=== PATIENT | female | born 1945 | race Caucasian/White ===

== ENCOUNTER → 2023-08-15 11:15 | Outpatient (REF) | payer MEDICARE, SELFPAY | LOC: HWRAD 11:15 | PROVIDERS: ATTENDING PHYSICIAN Nurse Practitioner; FAMILY PHYSICIAN Family Medicine | DX: I48.0 Paroxysmal atrial fibrillation (principal); I71.21 Aneurysm of the ascending aorta, without rupture | CPT/HCPCS: 71250 ==

== ENCOUNTER 2023-08-29 15:39 | Inpatient (IN) | payer MEDICARE, SELFPAY ==
[2023-08-29] VITALS (13 sets, daily range): BP systolic 106–136; BP diastolic 56–92; BMI 31.0; BMI 32.1
[2023-08-29] MEDS: DECADRON 10 MG IV (11:29)
[2023-08-29] MEDS: DUONEB 3 ML INH ×4 (11:29→19:26)
[2023-08-29 11:32] LABS: % Basophils 0.1 % (0-2); % Immature Granulocytes 0.4 % (0-0.5); % Lymphocytes 9.6 % (20.5-51.1); % Monocytes 6.7 % (1.7-9.3); % Neutrophils 83.2 % (42.2-75.2); Absolute Lymphocytes 0.7 10^3/uL (1.2-3.4); Absolute Monocytes 0.5 10^3/uL (0.1-0.6); Absolute Neutrophils 6.4 10^3/uL (1.4-6.5); Hemoglobin 14.6 g/dL (12.0-16.0); Mean Corpuscular Hgb 31.2 pg (27.0-31.0); Mean Corpuscular Volume 91.9 fL (81.0-99.0); Mean Platelet Volume 9.7 fL (7.4-10.4); Nucleated Red Blood Cells % 0 %; Platelet Count 153 10^3/uL (130-400); Red Blood Cell Count 4.68 10^6/uL (4.20-5.40); Red Cell Dist. Width 13.5 % (11.5-14.5); White Blood Cell Count 7.7 10^3/uL (4.8-10.8)
--- NOTE | 2023-08-29 11:44 | ED.GENMED ---
History of Present Illness
General
Chief Complaint: Chest Pain
Source: patient
Exam Limitations: none
Time Seen by Provider: 08/29/23 11:23
Nursing documentation reviewed up to this point in time: agreed with
Travel History
Have you had any contact with someone who has COVID-19?: No
Do you have any symptoms of coronavirus? Fever > 100 degrees, chills, cough, shortness of breath, sore throat, loss of taste or smell, muscle aches, or headache?: No
History of Present Illness
History of Present Illness:
78-year-old female past medical history of COPD A-fib hyperlipidemia currently anticoagulated with Eliquis presenting to the emergency department today with concerns of worsening shortness of breath. Upper respiratory symptoms over the past 3 days
or so worsening shortness of breath today. Seen in her primary care doctor was told that her pulse ox is in the 70s told to come to the ER. Denies specific chest pain denies specific fevers vomiting abdominal pain.
Review of Systems
Review of Systems
Allergies reviewed?: Yes
All Other Systems: ROS reviewed and negative except as documented in HPI and ROS
Phy Exam
Physical Exam
Physical Exam:
GENERAL: Alert , in no apparent distress
EYE: pupils equal and reactive
NECK: Supple, no significant adenopathy.
ENT: o/p clr, mmm.
CARDIAC: Regular rate and rhythm .
LUNGS: Diminished lungs faint wheeze with forced exhalation.
ABDOMEN: Soft, without focal tenderness, no r/g, no cvat
NEUROLOGICAL: Alert and oriented, no focal neuro deficits
SKIN: Warm and dry, skin intact.
MUSCULOSKELETAL: No edema, well perfused.
PSYCH: Normal and appropriate interaction.
Scores
Heart Score for Chest Pain Patients
STEMI patient?: No
History: Slightly or Non-Suspicious
ECG: Normal
Age: >/= 65 years
Risk Factors: 1 or 2 Risk Factors
Troponin: >1 - <3 x Normal Limit
Heart Score for Chest Pain Patients: 4
Heart Score Risk: 20.3% MACE over next 6 weeks
Course
Orders/Labs/Results
Orders:
Orders
08/29/23 11:05
Electrocardiogram (*1) Urgent
Reason for Study: Atrial Fibrillation
08/29/23 11:06
EKG- Treatment ONCE
08/29/23 11:22
Complete Blood Count/With Diff Urgent
Comprehensive Metabolic Panel Urgent
NT-proBNP Urgent
Comment: ADD ON
Troponin I Urgent
08/29/23 11:23
Add On- LAB Urgent
Tests Added?: bnp
Dexamethasone Sod Phosphate [Decadron] 10 mg IV NOW STA
Ipratropium/Albuterol Sulfate [Duoneb] 3 ml INH R NOW ONE
Chest [CR Chest - 2 Views ] Urgent
Comment:
Reason For Exam: sob, hypoxia
08/29/23 11:24
COVID-19 Antigen Urgent
Source: Nasal Swab
Influenza A+B Rapid Molecular Urgent
ARIC Source: Nasal Swab
Specimen Description:
08/29/23 11:25
Dexamethasone Sod Phosphate [Decadron] 4 mg .ROUTE .STK-MED ONE
Ipratropium/Albuterol Sulfate [Duoneb] 3 ml .ROUTE .STK-MED ONE
08/29/23 11:28
Lactic Acid Urgent
08/29/23 14:15
0.9% Sodium Chloride 250 ml [Nss] 250 ml IV BOLUS
Ipratropium/Albuterol Sulfate [Duoneb] 3 ml INH R NOW ONE
Abnormal Lab Results
08/29/23
11:22
MCH 31.2 H pg
(27.0-31.0)
Absolute Lymphs (auto) 0.7 L 10^3/uL
(1.2-3.4)
Neutrophils % 83.2 H %
(42.2-75.2)
Lymphocytes % 9.6 L %
(20.5-51.1)
Sodium 133 L mmol/L
(135-145)
Chloride 95 L mmol/L
(98-107)
Carbon Dioxide 33 H mmol/L
(22-30)
Glucose 146 H mg/dl
(70-99)
AST 39 H U/L
(14-36)
Troponin I 0.049 H* ng/ml
08/29/23 11:22
08/29/23 11:22
Vital Signs
Initial and Last Documented VS:
Initial Vital Signs
Temp Pulse Resp BP Pulse Ox
98.8 F 124 16 129/83 96
08/29/23 11:06 08/29/23 11:06 08/29/23 11:06 08/29/23 11:06 08/29/23 11:06
Last Documented Vital Signs
Temp Pulse Resp BP Pulse Ox
98.8 F 120 23 120/92 95
08/29/23 11:06 08/29/23 14:15 08/29/23 14:15 08/29/23 14:00 08/29/23 14:15
MDM/Problems Addressed
MDM/Problems Addressed:
78-year-old female presenting to the emergency department today hypoxemic and 70s upon arrival has history of COPD recent upper respiratory infection. Has diminished lungs with slight wheeze with forced exhalation. Was started on DuoNeb and
dexamethasone was placed on nasal cannula oxygen with improvement of pulse ox to the low 90s. Chest x-ray without acute abnormality. Patient additionally has a history of A-fib initial EKG showed heart rate of 140 but this improved specific rate
control treatment to the 110s after treatment for COPD. Plan to admit for further treatment and monitoring.
*Critical Care Note
Total Time (30-74mins, 75-104mins- exclusive of procedures): Not Applicable
ED Attending Note
-
Portions of this chart may have been created with voice recognition software.� Occasional wrong word or��sound alike� substitutions may have occurred due to the inherent limitations of voice recognition software.
Discharge Plan
Departure
Patient Disposition: Admit
Date of Disposition: 08/29/23
Time of Disposition: 14:44
Admit to: Telemetry
Admit to doctor: Do
Presentation/result/management discussed w/ accepting MD/DO: Hospitalist
Patient with high blood pressure during this ER visit?: No
Condition: Good
Covid-19: Not Applicable
Discharge Problem:
COPD exacerbation, Hypoxemia
Prescriptions:
No Action
atorvastatin 10 mg Tablet
10 mg PO DAILY
alendronate 70 mg Tablet
70 mg PO MO@0800
cyanocobalamin (vitamin B-12) 1,000 mcg Tablet
1,000 mcg PO DAILY
therapeutic multivitamin Tablet
1 tab PO DAILY
tiotropium bromide [Spiriva with HandiHaler] 18 mcg Capsule, W/Inhalation Device
1 cap INHALATION R DAILY
cholecalciferol (vitamin D3) 50 mcg (2,000 unit) Tablet
50 mcg PO DAILY
Lumigan 0.01 % drops
1 drp BOTH EYES HS
Eliquis 5 mg Tablet
5 mg PO BID Qty: 60 0RF
diltiazem HCl 300 mg Capsule,Extended Release 24hr
300 mg PO DAILY Qty: 30 0RF
furosemide 40 mg tablet
20 mg PO DAILY
Referrals:
Chiquis Sweeney MD [Family Provider] -
Interventions
Interventions:
*Risk Screen - Suicide Last Done: 08/29/23 11:18
*General Assessment Last Done: 08/29/23 11:18
*Neglect/Abuse Screening Last Done: 08/29/23 11:18
*ED COVID-19 Vaccine History Last Done: 08/29/23 11:06
ED- Cardiac Assessment Last Done: 08/29/23 11:18
[2023-08-29 11:47] LABS: ALT (SGPT) 21 U/L (0-35); AST (SGOT) 39 U/L (14-36); Albumin 4.1 g/dl (3.5-5.0); Alkaline Phosphatase 93 U/L (38-126); Blood Urea Nitrogen 13 mg/dl (7-17); Calcium 9.2 mg/dl (8.4-10.2); Carbon Dioxide 33 mmol/L (22-30); Chloride 95 mmol/L (98-107); Estimated Creatinine Clearance 77 ml/min; Glucose 146 mg/dl (70-99); Sodium 133 mmol/L (135-145); Total Bilirubin 0.8 mg/dl (0.2-1.3); Total Protein 7.3 g/dl (6.3-8.2); eGFR > 60.00
[2023-08-29 12:04] LABS: Lactic Acid 1.9 mmol/L (0.7-2.0)
[2023-08-29 12:05] LABS: COVID-19 Antigen Negative (Negative)
[2023-08-29 12:05] LABS: NT-proBNP 1600 pg/ml; Troponin I 0.049 ng/ml
[2023-08-29] MEDS: NSS 250 IV (14:23)
--- NOTE | 2023-08-29 15:15 | HPS.HSE ---
Addendum entered and electronically signed by Burke Pena MD 08/29/23 15:49:
I saw and examined the patient.
The ATHLETIC MONITOR or PA's note was reviewed and I agree with the note.
Comment:
Patient 78 years old female history of COPD, CHF, A-fib, presented to the hospital shortness of breath and cough. Patient tells me she had URI symptoms exacerbated last Tuesday and since then she has been having some cough with clear sputum
production associated with shortness of breath and also had some subjective fevers. Her son has been sick prior to her. She went to see her PCP and she was noted to have a pulse ox in the 70% and she was sent over to the hospital. She does have
some weight gain and some lower extremity edema. She denies any chest pain. She does have some orthopnea but denies paroxysmal nocturnal dyspnea. She had recently decreased her diuretics as outpatient. She was given IV Decadron 10 mg x 1. She
had a chest x-ray no acute abnormality reported. Troponin mildly elevated and BNP at 1600. Sodium 133. Heart rate in A-fib to the 140s. COVID-19 and influenza negative. She was referred to hospitalist for further evaluation.
Physical exam:
General: Acutely ill
HEENT: Normocephalic, Atraumatic and Moist Mucous Membranes
Respiratory: Clear to Auscultation; Negative Wheezes, Rales or Rhonchi
Cardiac: Irregular rate and rhythm, tachycardic, S1-S2
GI: Soft, Nontender and Nondistended
Musculoskeletal: Bilateral edema. No Clubbing, No Cyanosis
Neuro: Awake, Alert and Oriented
Psych: Calm
A/P:
Acute hypoxic respiratory failure multifactorial in etiology likely related to acute diastolic CHF, atrial fibrillation rapid ventricular response, and COPD--> IV Lasix, IV Cardizem drip, IV steroid switched to oral from tomorrow, monitor
respiratory status closely, titrate oxygen as able, continue cardiac monitoring, titrate cardiac enzymes, reviewed recent echocardiogram. Will give her recommendations based on clinical course
Original Note:
Family Physician
-
Family Physician: Chiquis Sweeney
Chief Complaint
-
Shortness of Breath
History of Present Illness
Patient is an 78 y/o female with PMH of COPD and atrial fibrillation who presented to the ED from her PCPs office complaining of productive cough x 2-3 days. Patient says she has had a new cough productive of thick clear mucous since Tuesday or
Tuesday, which worsened significantly last night and kept her from sleeping. This caused her to see her PCP this morning where her oxygen saturation was found to be 73% on room air. Patient's PCP then sent her to the ED. She does not wear oxygen or
have a cough at baseline. She admits to orthopnea, and fatigue, but denies chills, sweats, nausea, vomiting, and chest pain. She admits to dyspnea on exertion for the past couple months. Patient says just walking a few steps causes SOB and rapid
heart beat. She admits to noticing lower extremity edema since starting Cardizem in June. She weighs herself weekly and notes weights regularly between 175-180 lbs. She notes when she saw the Cardiology ATHLETIC MONITOR in the office her Lasix dose was
decreased from 40mg to 20mg.
Medical History
Past Medical History
Past Medical History: Reports Other
Additional Past Medical History:
Chronic Diastolic Heart Failure
Paroxysmal Atrial Fibrillation
Hyperlipidemia
COPD
Osteoporosis
Past Surgical History: Reports Other
Additional Past Surgical History:
Leckrone Tooth Extraction
Social History
Tobacco: Former Smoker
Alcohol: None
Drug: None
Living: With Family
Family History
Family History: Not pertinent
Allergies / Home Medications
Allergies reflects when Allergies were last updated in [facility].
Home Medications with original date entered in [facility]
Allergy/Medication List:
Allergies
Allergy/AdvReac Type Severity Reaction Status Date / Time
No Known Allergies Allergy Verified 03/11/24 11:11
Home Medications
alendronate 70 mg tablet 70 mg PO MO@0800 bones 02/09/22
atorvastatin 10 mg tablet 10 mg PO DAILY High cholesterol 02/09/22
bimatoprost 0.01 % eye drops (Lumigan) 1 drp BOTH EYES HS Eye condition 02/09/22
cholecalciferol (vitamin D3) 50 mcg (2,000 unit) tablet 50 mcg PO DAILY Supplement 02/09/22
cyanocobalamin (vitamin B-12) 1,000 mcg tablet 1,000 mcg PO DAILY Supplement 02/09/22
therapeutic multivitamin 1 tab PO DAILY Supplement 02/09/22
tiotropium bromide 18 mcg capsule with inhalation device (Spiriva with HandiHaler) 1 cap inhalation R DAILY Lung/breathing issues 02/09/22
apixaban 5 mg tablet (Eliquis) 5 mg PO BID #60 tabs 07/01/23
diltiazem HCl 300 mg capsule,extended release 24 hr 300 mg PO DAILY #30 caps 07/01/23
furosemide 40 mg tablet 20 mg PO DAILY 08/29/23
Review of Systems
-
A 12 point ROS was completed and negative except as noted: Yes
Constitutional: Denies Fever or Chills
Respiratory: Reports Cough and Trouble Breathing
Cardiac: Reports Palpitations; Denies Chest Pain
Physical Exam
Vital Signs
Vital Signs
Temp Pulse Resp BP Pulse Ox
98.8 F 141 16 129/64 94
08/29/23 11:06 08/29/23 15:00 08/29/23 15:00 08/29/23 15:00 08/29/23 15:00
Physical Exam
General: Comfortable and Conversant
HEENT: Anicteric and Moist mucous membranes
Respiratory: Rales (Faint rales bilateral bases) and Decreased Breath Sounds
Cardiac: S1/S2, Irregular Rhythm and Tachycardia
GI: Soft and Non Tender
Musculoskeletal: No Clubbing, No Cyanosis and Other (Trace/+1 pitting edema bilateral lower extremities)
Skin: Warm and Dry
Neuro: Awake, Alert and Oriented
Laboratory Results
-
08/29/23 11:22
08/29/23 11:
Laboratory Results
Lactic Acid 1.9 mmol/L (0.7-2.0) 08/29/23 11:28
Lactic Acid Cancelled 08/29/23 11:28
Total Bilirubin 0.8 mg/dl (0.2-1.3) 08/29/23 11:22
AST 39 U/L (14-36) H 08/29/23 11:
ALT 21 U/L (0-35) 08/29/23 11:
Alkaline Phosphatase 93 U/L (38-126) 08/29/23 11:22
Troponin I 0.049 ng/ml H* 08/29/23 11:22
Data Reviewed
-
Diagnostic Radiology: Report Reviewed by me
Lab Data: Labs Reviewed by me
Old Records: Reviewed
Impression/Plan
-
Acute Hypoxic Respiratory Insufficiency, multiple factorial
-Continue supplemental oxygen
Atrial Fibrillation with Rapid Ventricular Response
-Start Cardizem drip
-Continue Eliquis for anticoagulation
Acute on Chronic Diastolic Heart Failure
-Echo Jun 2022: Stage I Diastolic Dysfunction, EF 55-60%. Mild to moderate aortic regurgitation
-Give 40mg IV Now - Monitor for response
-Monitor Is&Os and Daily Weights
Mildly Elevated Troponin, likely related to elevated heart rate and mild heart failure
-Continue to trend
Mild Acute COPD Exacerbation
-Patient received Decadron 10mg in ED - Start Prednisone in AM
-Continue DuoNeb QID and PRN
Hyperlipidemia
-Continue atorvastatin
DVT proph: Eliquis
Code Status: DNR
[2023-08-29] MEDS: CARDIZEM 125 IV (15:26)
--- NOTE | 2023-08-29 15:54 | CON.CAR ---
Addendum entered and electronically signed by Andre Mendez MD 08/29/23 16:44:
I saw and examined the patient.
The SCREENER PERFUMER's note was reviewed and I agree with the note.
Comment: 78 y/o female with PAF on Eliquis, COPD/emphysema, dyslipidemia, thoracic aortic aneurysm, mild-moderate AR, and HFpEF who is here for evaluation of SOB. She appears to be having a COPD exacerbation which likely lead to her AF RVR, she
also missed a dose of diltiazem.
- cont dilt gtt
- COPD exacerbation
- non-ischemic myocardial injury in setting of hypoxia, tachycardia
- very mild HF exacerbation, reassess diuretics in AM
Original Note:
Consultation
Consultation Request
Date/Time Consultation Requested: 08/29/23 1518
Date/Time Consultation Performed: 08/29/23 1530
Requesting Provider: Meeta MICHAELS
Performing Provider: Iris FLOOD for Dr. Mendez
Reason for Consultation: AFIB, CHF
Medical History
-
Chief Complaint: SOB, cough
History of Present Illness:
78 y/o female with PAF on Eliquis, COPD/emphysema, dyslipidemia, thoracic aortic aneurysm, mild-moderate AR, and HFpEF who is here for evaluation of SOB. She has felt that she had URI symptoms since Tuesday with SOB, cough, low grade fevers. She was
seen in her PCP office today and recommended she come to ER and sats were reportedly in 70's. We are consulted for AFIB with RVR and CHF exacerbation. She is being treated with IV diltiazem and IV lasix. She is also being treated for a COPD
exacerbation with IV steroids, breathing tx. She is in no distress at the time of my assessment. She is going in and out of AFIB with RVR (some SR noted).
Past Medical History
Past Medical History: Arrhythmias, CHF, COPD, Hypercholesterolemia, Valvular Disease and Other (as above)
Social History
Tobacco: Former Smoker
Family History
Family History: Reviewed & Not Pertinent
Allergies / Home Medications
Allergy/AdvReac Type Severity Reaction Status Date / Time
No Known Allergies Allergy Verified 08/29/23 11:11
Medication Instructions Recorded Confirmed Type
alendronate 70 mg tablet 70 mg PO MO@0800 bones 02/09/22 08/29/23 History
atorvastatin 10 mg tablet 10 mg PO DAILY High cholesterol 02/09/22 08/29/23 History
bimatoprost 0.01 % eye drops 1 drp BOTH EYES HS Eye condition 02/09/22 08/29/23 History
(Lumigan)
cholecalciferol (vitamin D3) 50 50 mcg PO DAILY Supplement 02/09/22 08/29/23 History
mcg (2,000 unit) tablet
cyanocobalamin (vitamin B-12) 1,000 mcg PO DAILY Supplement 02/09/22 08/29/23 History
1,000 mcg tablet
therapeutic multivitamin 1 tab PO DAILY Supplement 02/09/22 08/29/23 History
tiotropium bromide 18 mcg capsule 1 cap inhalation R DAILY 02/09/22 08/29/23 History
with inhalation device (Spiriva Lung/breathing issues
with HandiHaler)
apixaban 5 mg tablet (Eliquis) 5 mg PO BID #60 tabs 07/01/23 08/29/23 Rx
diltiazem HCl 300 mg 300 mg PO DAILY #30 caps 07/01/23 08/29/23 Rx
capsule,extended release 24 hr
furosemide 40 mg tablet 20 mg PO DAILY 08/29/23 08/29/23 History
Review of Systems
-
History Source: Patient
All other systems: Negative unless noted
Respiratory: Cough and Trouble Breathing
Musculoskeletal: Edema
Physical Exam
Vital Signs
Temp Pulse Resp BP Pulse Ox
98.8 F 92 25 121/59 92
08/29/23 11:06 08/29/23 15:45 08/29/23 15:45 08/29/23 15:45 08/29/23 15:45
Lab Results
08/29/23 11:22
08/29/23 11:22
Troponin I 0.049 ng/ml H* 08/29/23 11:22
Ihx-T-Yztgtxsqqvh Pept 1600 pg/ml 08/29/23 11:22
Physical Exam
General: Well Developed, Well Nourished and No Apparent Distress
HEENT: Normocephalic and Anicteric
Respiratory: Clear, Non Labored Respirations and Other (on O2 by [facility])
Cardiac: Irregular Rhythm and Peripheral Edema (mild BLE edema)
Musculoskeletal: Edema (mild BLE)
Skin: Warm and Dry
Neuro: AO x 3
Psych: Calm
Impression / Plan
-
Emphysema/COPD exacerbation:
-getting IV steroids, nebs- management per primary
AFIB with RVR, paroxysmal:
-in setting of hypoxia
-treat underlying process
-continue IV diltiazem, which requires intensive monitoring
-continue Eliquis for OAC
Cqdae-hs-tznjgif HFpEF:
-in setting of afib with RVR
-see how she responds to IV Lasix and reassess in AM
-recent echo as below
Abnormal troponin:
-suspect non-ischemic myocardial injury in setting of hypoxia, tachycardia
-denies any CP
Hx thoracic aortic aneurysm
Dyslipidemia
Data Reviewed
-
EKG: Tracing Personally Visualized and interpreted (AFIB with RVR 148 BPM)
Radiology: Report Reviewed by me (CXR: No acute cardiopulmonary process.)
Medical Tests (Nuc Med, Echo etc): Report Reviewed by me (Echo 06/29/23: Ejection fraction is 55-60%. Stage I diastolic dysfunction. Mild to moderate aortic regurgitation. Estimated pulmonary artery pressure of 27 mmHg. Dilated aortic root at 4.1 cm
and moderate to severely dilated ascending aorta at 4.8 cm.)
Labs: Labs Reviewed by me
[2023-08-29] MEDS: LASIX 40 MG IV (16:55)
--- NOTE | 2023-08-29 17:06 | PTCARENOTE ---
received pt from the ER into 2253, uncontrolled AF on tele w HR 140's, BP 108/60, pt denies CP or SOB. +peripheral pulses, trace edema to bilateral lower extremities. Lungs w fine crackles to left base. + bs, tolerating po intake, pt is DTV. PIV to
right AC w Cardizem infusing at 10ml/hr. plan of care reviewed w the pt and questions encouraged.
[2023-08-29 18:22] LABS: Troponin I 0.041 ng/ml
[2023-08-29] MEDS: ELIQUIS 5 MG PO (20:34)
[2023-08-29] MEDS: MUCINEX 600 MG PO (20:34)
[2023-08-29] MEDS: LUMIGAN 0.01% 1 DROP BOTH EYES (22:25)
[2023-08-30] VITALS (10 sets, daily range): BP systolic 117–147; BP diastolic 61–125; PULSE 87; O2SAT 93; BMI 31.6
[2023-08-30 00:31] LABS: Troponin I 0.026 ng/ml
[2023-08-30] MEDS: CARDIZEM 125 IV (03:59)
--- NOTE | 2023-08-30 04:17 | W.PN.UPDATE ---
Update Note
Progress Note Update
Patient with bimatoprost gtt at home for controlling intraocular pressure, order placed to continue home regimen of 1gtt both eyes qHS.
[2023-08-30 04:29] LABS: Hematocrit 42.5 % (37.0-47.0); Hemoglobin 14.3 g/dL (12.0-16.0); Mean Corp Hgb Conc. 33.6 g/dL (33.0-37.0); Mean Platelet Volume 9.9 fL (7.4-10.4); Platelet Count 153 10^3/uL (130-400); Red Blood Cell Count 4.62 10^6/uL (4.20-5.40); Red Cell Dist. Width 13.2 % (11.5-14.5)
[2023-08-30 04:50] LABS: Blood Urea Nitrogen 18 mg/dl (7-17); Calcium 9.3 mg/dl (8.4-10.2); Carbon Dioxide 30 mmol/L (22-30); Chloride 96 mmol/L (98-107); Estimated Creatinine Clearance 73 ml/min; Glucose 151 mg/dl (70-99); HDL Cholesterol 73 mg/dl; LDL Cholesterol, Calculated 49 mg/dl; Magnesium 2.2 mg/dl (1.6-2.3); Potassium 3.9 mmol/L (3.5-5.1); Sodium 136 mmol/L (135-145); Total Cholesterol 135 mg/dl (50-199); Triglyceride 65 mg/dl (10-149); Very Low Density Lipoprotein 13 mg/dl (0-30); eGFR > 60.00
--- NOTE | 2023-08-30 05:46 | PTCARENOTE ---
patient slept well overnight. HR Afib on [id number]. increased HR OOB. bp stable. cardizem gtt at 10 ml/hr. moist cough, productive at times per patient. 94% on 3L NC. HERN[place]NDEZ. lungs clear. oob with single point cane, standby assist, steady on her
feet. reviewed plan of care with patient and verbalized understanding. call mao within reach. calls appropriately.
[2023-08-30] MEDS: DUONEB 3 ML INH ×4 (07:01→20:37)
[2023-08-30] MEDS: LIPITOR 10 MG PO (08:18)
[2023-08-30] MEDS: MUCINEX 600 MG PO ×2 (08:18→20:07)
[2023-08-30] MEDS: DELTASONE 40 MG PO (08:18)
[2023-08-30] MEDS: ELIQUIS 5 MG PO ×2 (08:18→20:07)
--- NOTE | 2023-08-30 08:27 | W.PN.CD ---
Addendum entered and electronically signed by Andre Mendez MD 08/30/23 14:54:
We will sign off please call with questions/concerns.
Original Note:
Today's Communication / Plan
-
stop dilt gtt start dilt 300 mg daily ( home dose )
resume home lasix
Impression / Plan
-
78 y/o female with PAF on Eliquis, COPD/emphysema, dyslipidemia, thoracic aortic aneurysm, mild-moderate AR, and HFpEF who is here for evaluation of SOB.� She appears to be having a COPD exacerbation which likely lead to her AF RVR, she also missed
a dose of diltiazem.
Emphysema/COPD exacerbation:
-getting IV steroids, nebs- management per primary
AFIB with RVR, paroxysmal: now back in SR
-in setting of hypoxia
-treat underlying process
-stop dilt gtt, start dilt 300 mg PO
-continue Eliquis for OAC
Ptbid-lo-aeeewnm HFpEF:
-in setting of afib with RVR
-cont home lasix 20 mg daily
Abnormal troponin:
-suspect non-ischemic myocardial injury in setting of hypoxia, tachycardia
-denies any CP
Hx thoracic aortic aneurysm
Dyslipidemia
Physical Exam
Vital Signs/Labs
Vital Signs
Temp Pulse Resp BP Pulse Ox
97.9 F 79 18 147/87 95
08/30/23 08:01 08/30/23 08:01 08/30/23 08:01 08/30/23 03:57 08/30/23 08:01
08/29/23 08/30/23 08/31/23
06:59 06:59 06:59
Actual Weight 172 lb 9.951 oz
08/30/23 04:00
08/30/23 04:00
Magnesium 2.2 mg/dl (1.6-2.3) 08/30/23 04:00
Triglycerides 65 mg/dl (10-149) 08/30/23 04:00
LDL Cholesterol, Calc 49 mg/dl 08/30/23 04:00
VLDL Cholesterol, Calc 13 mg/dl (0-30) 08/30/23 04:00
HDL Cholesterol 73 mg/dl 08/30/23 04:00
08/29/23
11:22
Kud-I-Ffhjxldddln Pept 1600
LAB Results
08/29/23 08/29/23 08/29/23
11:22 17:30 23:41
Troponin I 0.049 H* 0.041 H* 0.026 D
Physical Exam
Constitutional: No acute distress
EENT: Anicteric
Cardiovascular: Rhythm & rate is regular and Pedal edema is absent
Respiratory: Respiratory effort normal and Lungs clear to auscul. (however poor air movement b/l )
GI: Soft
Neuro/Psych: AO x 3
Data Reviewed
-
Date of Service: August 30, 2023
EKG: Tracing Personally Visualized and interpreted
Echo: Report Reviewed by me
Labs: Labs Reviewed by me
--- NOTE | 2023-08-30 08:38 | W.PN.HOSP.TC ---
Today's Communication/Plan
-
IV steroids. Oral Cardizem and Lasix.
Assessment / Plan
Assessment / Plan
Physical exam:
General: Acutely ill
HEENT: Normocephalic, Atraumatic and Moist Mucous Membranes
Respiratory: Bilateral rhonchi; Decreased breath sounds bilateral, negative Wheezes or Rales
Cardiac: Regular rate and rhythm, S1-S2, no murmurs
GI: Soft, Nontender and Nondistended
Musculoskeletal: Less bilateral edema.� No Clubbing, No Cyanosis
Neuro: Awake, Alert and Oriented
Psych: Calm
A/P:
Acute Hypoxic Respiratory Insufficiency, multiple factorial
-Continue supplemental oxygen
-Diuretics, steroids, bronchodilators.
-PT OT eval
Atrial Fibrillation with Rapid Ventricular Response
-Converted to normal sinus rhythm
-Switch Cardizem drip to oral Cardizem
-Continue Eliquis for anticoagulation
-Continue cardiac monitoring
Acute on Chronic Diastolic Heart Failure
-Echo Jun 2022: Stage I Diastolic Dysfunction, EF 55-60%.� Mild to moderate aortic regurgitation
-Given 40mg IV -switch to oral diuretics today
-Monitor Is&Os and Daily Weights
Mildly Elevated Troponin, likely related to elevated heart rate and mild heart failure
-Continue to trend
Mild Acute COPD Exacerbation
-Patient received Decadron 10mg in ED -
-continue IV steroids today of dexamethasone 4 mg every 8 hours
-Continue DuoNeb QID and PRN
Hyperlipidemia
-Continue atorvastatin
DVT proph: Eliquis
Code Status: DNR
Total time spent on today's encounter was 52 minutes which included time spent in counseling the patient/family regarding diagnosis and treatment plan as listed above, goals of care, and symptom management. Case was discussed with nursing staff,
specialists, and care coordinators/case management. All labs and imaging personally reviewed by me. Remainder the time spent in detailed review of previous records, lab data, imaging, and other medical provider documentation.
Anticipated Discharge: 24 - 48 hours
Subjective/Interval History
-
Date of Service: August 30, 2023
Patient with some cough and shortness of breath. Back in normal sinus rhythm. Afebrile
Objective Data
-
Labs:
Laboratory Results
08/30/23
04:00
WBC 6.0
Hgb 14.3
Hct 42.5
Plt Count 153
Sodium 136
Potassium 3.9
Chloride 96 L
Carbon Dioxide 30
BUN 18 H
Creatinine 0.6
Glucose 151 H
Calcium 9.3
Vital Signs:
Vital Signs
Temp Pulse Resp BP Pulse Ox
97.9 F 79 18 147/87 95
08/30/23 08:01 08/30/23 08:01 08/30/23 08:01 08/30/23 03:57 08/30/23 08:01
I&O
08/29/23 08/30/23 08/31/23
06:59 06:59 06:59
Intake Total
Output Total 1650 / 1650
Balance -1640 / -1640
Review of Systems
-
All other systems: Reviewed and negative
[2023-08-30] MEDS: CARDIZEM CD 300 MG PO (10:16)
[2023-08-30] MEDS: VIBRAMYCIN 100 MG PO ×2 (10:16→20:07)
[2023-08-30] MEDS: DECADRON 4 MG IV ×2 (10:16→17:30)
--- NOTE | 2023-08-30 10:37 | CM ---
Reviewed chart. Met with Mrs. Quiroga to review discharge plans. She states prior to admission she resides in a two story home with three step to enter. She states her youngest son resides in the apartment on the second floor. She states prior to
admission she ambulates in the house independently but uses a single point cane in the community. She states she has a single point cane at home. She states she has a prescription plan with [facility] and uses [facility]. She states her daughter
resides close by and is supportive. Medical work-up in progress. The discharge plan is to return home with her son when medically stable.
[2023-08-30] MEDS: LASIX 20 MG PO (13:42)
--- NOTE | 2023-08-30 21:02 | PTCARENOTE ---
assumed care of patient at the change of shift. daughter at the bedside. patient resting in the chair. denies any pain at the times. patient states feeling better today, improved appetite. sore throat at times per patient. + moist cough, productive
at times. lungs diminished at the bases. currently on RA- 91-94%. SR on tele 80s. bp stable. + 1 LE edema noted. reviewed medications and plan of care with patient and daughter. answered all questions. daughter would love to come in early tomorrow
morning and discuss plan with doctors. patient ambulating to the BR with a single point cane, steady on her feet. call mao within reach, calls appropriately.
[2023-08-30] MEDS: LUMIGAN 0.01% 1 DROP BOTH EYES (23:13)
[2023-08-31] VITALS (15 sets, daily range): BP systolic 80–164; BP diastolic 52–97; PULSE 75; O2SAT 88; BMI 31.7
[2023-08-31] MEDS: DECADRON 4 MG IV ×3 (02:55→18:29)
[2023-08-31 04:01] LABS: Blood Urea Nitrogen 22 mg/dl (7-17); Calcium 9.6 mg/dl (8.4-10.2); Carbon Dioxide 35 mmol/L (22-30); Chloride 95 mmol/L (98-107); Estimated Creatinine Clearance 72 ml/min; Glucose 128 mg/dl (70-99); Potassium 4.4 mmol/L (3.5-5.1); Sodium 137 mmol/L (135-145); eGFR > 60.00
[2023-08-31] MEDS: DUONEB 3 ML INH ×4 (07:21→19:49)
[2023-08-31] MEDS: CARDIZEM CD 300 MG PO (08:54)
[2023-08-31] MEDS: VIBRAMYCIN 100 MG PO ×2 (08:54→20:54)
[2023-08-31] MEDS: MUCINEX 600 MG PO ×2 (08:54→20:54)
[2023-08-31] MEDS: LASIX 20 MG PO (08:54)
[2023-08-31] MEDS: ELIQUIS 5 MG PO ×2 (08:54→20:54)
[2023-08-31] MEDS: LIPITOR 10 MG PO (08:55)
--- NOTE | 2023-08-31 09:05 | W.PN.HOSP.TC ---
Today's Communication/Plan
-
Continue IV steroids. Oral diuretics and calcium channel blockers.
Assessment / Plan
Assessment / Plan
Physical exam:
General: Acutely ill
HEENT: Normocephalic, Atraumatic and Moist Mucous Membranes
Respiratory: Bilateral rhonchi; Decreased breath sounds bilateral, negative Wheezes or Rales
Cardiac: Regular rate and rhythm, S1-S2, no murmurs
GI: Soft, Nontender and Nondistended
Musculoskeletal: Less bilateral edema.� No Clubbing, No Cyanosis
Neuro: Awake, Alert and Oriented
Psych: Calm
A/P:
Acute Hypoxic Respiratory Insufficiency, multiple factorial
-Continue supplemental oxygen
-Diuretics, steroids, bronchodilators.
-PT OT eval
-Discussed with daughter at bedside
-Acapella
-Transfer to floor with telemetry
-Prefer to keep albuterol but if too much side effect will transition to only Atrovent or Xopenex
Atrial Fibrillation with Rapid Ventricular Response
-Converted and remains normal sinus rhythm
-Switch Cardizem drip to oral Cardizem--> 300 mg p.o. daily
-Continue Eliquis for anticoagulation
-Continue cardiac monitoring
Acute on Chronic Diastolic Heart Failure
-Echo Jun 2022: Stage I Diastolic Dysfunction, EF 55-60%.� Mild to moderate aortic regurgitation
-Given 40mg IV -switched to oral diuretics since 08/29
-Monitor Is&Os and Daily Weights
Mildly Elevated Troponin, likely related to elevated heart rate and mild heart failure
-Continue to trend
Mild Acute COPD Exacerbation
-Patient received Decadron 10mg in ED -
-continue IV steroids today of dexamethasone 4 mg every 8 hours
-Doxycycline 100 mg p.o. twice a day
-Continue DuoNeb QID and PRN
Hyperlipidemia
-Continue atorvastatin
DVT proph: Eliquis
Code Status: DNR
Total time spent on today's encounter was 52 minutes which included time spent in counseling the patient/family regarding diagnosis and treatment plan as listed above, goals of care, and symptom management. Case was discussed with nursing staff,
specialists, and care coordinators/case management. All labs and imaging personally reviewed by me. Remainder the time spent in detailed review of previous records, lab data, imaging, and other medical provider documentation.
Anticipated Discharge: > 48 hours
Subjective/Interval History
-
Date of Service: August 31, 2023
Patient feels better overall. Patient had some shakiness from albuterol. Still supplemental oxygen. Patient has some cough.
Objective Data
-
Labs:
Laboratory Results
08/31/23
02:57
Sodium 137
Potassium 4.4
Chloride 95 L
Carbon Dioxide 35 H
BUN 22 H
Creatinine 0.6
Glucose 128 H
Calcium 9.6
Vital Signs:
Vital Signs
Temp Pulse Resp BP Pulse Ox
97.4 F 93 16 123/55 100
08/31/23 07:30 08/31/23 08:54 08/31/23 07:30 08/31/23 08:54 08/31/23 07:30
I&O
08/30/23 08/31/23 09/01/23
06:59 06:59 06:59
Intake Total 250 / 250
Output Total 1650 / 1650 1200 / 1200
Balance -1640 / -1640 -950 / -950
--- NOTE | 2023-08-31 15:17 | CM ---
Reviewed chart. Met with Mrs. Quiroga and her daughter to review discharge plans. She states she is feeling better. We reviewed home 02 if she qualifies .Will need to test for Home 02 closer to tentative discharge date. Prior to admission she
reside with her son in a two story home with three steps to enter. Her son resides in the apartment on the second floor. She has a first floor set-up. She states prior to admission she ambulates independently in the home and uses a single point
cane in the community. She states she has a single point cane at home. She states she has a prescription plan with [facility] and uses [facility]. She has a supportive daughter. Medical work-up in progress. The discharge plan is to return home
with home 02 if she qualifies when medically stable.
--- NOTE | 2023-08-31 20:28 | PTCARENOTE ---
NSR. VSS. RA Sats 90-91%. HERNÁNDEZ. Assessment per nursing flowsheet. OOB with minimal assistance and cane.
[2023-08-31] MEDS: LUMIGAN 0.01% 1 DROP BOTH EYES (21:03)
--- NOTE | 2023-08-31 22:00 | PTCARENOTE ---
Uncontrolled Afib after albuterol tx and coughing fit. HR 100-170s. Asymptomatic. BP stable. 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 Stat labs ordered. Cardizem IVP 5mg ordered.
--- NOTE | 2023-08-31 22:01 | W.PN.UPDATE ---
Update Note
Progress Note Update
Patient is a-fib with hr 120-140s, one time of IV Cardizem 5mg was given and stat bmp and mag were ordered.
[2023-08-31] MEDS: CARDIZEM 5 MG IV (22:24)
[2023-08-31 22:40] LABS: Blood Urea Nitrogen 30 mg/dl (7-17); Calcium 9.4 mg/dl (8.4-10.2); Carbon Dioxide 32 mmol/L (22-30); Chloride 96 mmol/L (98-107); Estimated Creatinine Clearance 73 ml/min; Glucose 176 mg/dl (70-99); Magnesium 2.2 mg/dl (1.6-2.3); Potassium 3.8 mmol/L (3.5-5.1); Sodium 132 mmol/L (135-145); eGFR > 60.00
[2023-09-01] VITALS (8 sets, daily range): BP systolic 112–134; BP diastolic 66–93; O2SAT 91; BMI 31.5
[2023-09-01] MEDS: DECADRON 4 MG IV ×3 (02:25→21:21)
[2023-09-01 05:45] LABS: Blood Urea Nitrogen 27 mg/dl (7-17); Calcium 9.7 mg/dl (8.4-10.2); Carbon Dioxide 33 mmol/L (22-30); Chloride 96 mmol/L (98-107); Estimated Creatinine Clearance 72 ml/min; Glucose 141 mg/dl (70-99); Potassium 4.2 mmol/L (3.5-5.1); Sodium 139 mmol/L (135-145); eGFR > 60.00
[2023-09-01] MEDS: XOPENEX 0.63 MG INHALANT SOLUTION 0.630000000000000004 MG INH ×3 (07:16→19:36)
[2023-09-01] MEDS: LASIX 20 MG PO (08:06)
[2023-09-01] MEDS: VIBRAMYCIN 100 MG PO ×2 (08:06→19:38)
[2023-09-01] MEDS: MUCINEX 600 MG PO ×2 (08:06→19:38)
[2023-09-01] MEDS: LIPITOR 10 MG PO (08:06)
[2023-09-01] MEDS: ELIQUIS 5 MG PO ×2 (08:07→19:38)
[2023-09-01] MEDS: CARDIZEM CD 300 MG PO (08:07)
--- NOTE | 2023-09-01 09:03 | W.PN.HOSP.TC ---
Today's Communication/Plan
-
Continue IV steroids, and add metoprolol. Continue cardiac monitoring.
Assessment / Plan
Assessment / Plan
Physical exam:
General: Acutely ill
HEENT: Normocephalic, Atraumatic and Moist Mucous Membranes
Respiratory: Bilateral rhonchi; Decreased breath sounds bilateral, negative Wheezes or Rales
Cardiac: Irregular rate and rhythm, tachycardic today, S1-S2, no murmurs
GI: Soft, Nontender and Nondistended
Musculoskeletal: Less bilateral edema.� No Clubbing, No Cyanosis
Neuro: Awake, Alert and Oriented
Psych: Calm
A/P:
Acute Hypoxic Respiratory Insufficiency, multiple factorial
-Continue supplemental oxygen
-Diuretics, steroids, bronchodilators.
-PT OT eval
-Discussed with daughter at bedside
-Acapella
-Albuterol changed to Xopenex
Atrial Fibrillation with Rapid Ventricular Response
-Back into A fib--> cardiology recommends to add metoprolol 25 mg p.o. daily
-oral Cardizem 300 mg p.o. daily
-Continue Eliquis for anticoagulation
-Continue cardiac monitoring
Acute on Chronic Diastolic Heart Failure
-Echo Jun 2022: Stage I Diastolic Dysfunction, EF 55-60%.� Mild to moderate aortic regurgitation
-Given 40mg IV -switched to oral diuretics since 08/29
-Monitor Is&Os and Daily Weights
Mildly Elevated Troponin, likely related to elevated heart rate and mild heart failure
-Continue to trend
Mild Acute COPD Exacerbation
-Patient received Decadron 10mg in ED -
-continue IV steroids today of dexamethasone 4 mg every 8 hours
-Doxycycline 100 mg p.o. twice a day
-Continue DuoNeb QID and PRN
Hyperlipidemia
-Continue atorvastatin
DVT proph: Eliquis
Code Status: DNR
Total time spent on today's encounter was 52 minutes which included time spent in counseling the patient/family regarding diagnosis and treatment plan as listed above, goals of care, and symptom management. Case was discussed with nursing staff,
specialists, and care coordinators/case management. All labs and imaging personally reviewed by me. Remainder the time spent in detailed review of previous records, lab data, imaging, and other medical provider documentation.
Anticipated Discharge: 24 - 48 hours
Subjective/Interval History
-
Date of Service: September 01, 2023
Patient with less shortness of breath, less cough. Unfortunately she went into A-fib overnight. No chest pain
Objective Data
-
Labs:
Laboratory Results
08/31/23 09/01/23
22:13 04:52
Sodium 132 L 139
Potassium 3.8 4.2
Chloride 96 L 96 L
Carbon Dioxide 32 H 33 H
BUN 30 H 27 H
Creatinine 0.6 0.6
Glucose 176 H 141 H
Calcium 9.4 9.7
Vital Signs:
Vital Signs
Temp Pulse Resp BP Pulse Ox
98.6 F 118 20 113/66 97
09/01/23 07:54 09/01/23 08:00 09/01/23 07:54 09/01/23 07:56 09/01/23 08:13
I&O
08/31/23 09/01/23 09/02/23
06:59 06:59 06:59
Intake Total 250 / 250 240 / 240
Output Total 1200 / 1200 1825 / 1825
Balance -950 / -950 -1585 / -1585
Review of Systems
-
All other systems: Reviewed and negative
--- NOTE | 2023-09-01 11:50 | W.PN.CD ---
Today's Communication / Plan
-
add metoprolol 25 mg
Impression / Plan
-
78 y/o female with PAF on Eliquis, COPD/emphysema, dyslipidemia, thoracic aortic aneurysm, mild-moderate AR, and HFpEF who is here for evaluation of SOB.� She appears to be having a COPD exacerbation which likely lead to her AF RVR, she also missed
a dose of diltiazem.
Emphysema/COPD exacerbation:
-getting IV steroids, nebs- management per primary
AFIB with RVR, paroxysmal: unfortunately went back in AF RVR after coughing fit 09/01 evening
-in setting of hypoxia
-treat underlying process
-cont dilt 300 mg PO will add metoprolol 25 mg
-continue Eliquis for OAC
Kqtuk-ph-xbwhqkw HFpEF:
-in setting of afib with RVR
-cont home lasix 20 mg daily
Abnormal troponin:
-suspect non-ischemic myocardial injury in setting of hypoxia, tachycardia
-denies any CP
Hx thoracic aortic aneurysm
Dyslipidemia
Physical Exam
Vital Signs/Labs
Vital Signs
Temp Pulse Resp BP Pulse Ox
98.9 F 118 20 113/66 93
09/01/23 11:34 09/01/23 08:00 09/01/23 11:34 09/01/23 07:56 09/01/23 11:34
08/31/23 09/01/23 09/02/23
06:59 06:59 06:59
Actual Weight 172 lb 2.896 oz
08/30/23 04:00
09/01/23 04:52
Magnesium 2.2 mg/dl (1.6-2.3) 08/31/23 22:13
Triglycerides 65 mg/dl (10-149) 08/30/23 04:00
LDL Cholesterol, Calc 49 mg/dl 08/30/23 04:00
VLDL Cholesterol, Calc 13 mg/dl (0-30) 08/30/23 04:00
HDL Cholesterol 73 mg/dl 08/30/23 04:00
08/29/23
11:22
Cfw-P-Izxmvcqobyn Pept 1600
LAB Results
08/29/23 08/29/23 08/29/23
11:22 17:30 23:41
Troponin I 0.049 H* 0.041 H* 0.026 D
Physical Exam
Constitutional: No acute distress
EENT: Anicteric
Cardiovascular: Rhythm/rate is irregular
Respiratory: Respiratory effort normal and Wheeze Present (mild end expiratory )
GI: Soft
Neuro/Psych: AO x 3
Data Reviewed
-
Date of Service: September 01, 2023
EKG: Tracing Personally Visualized and interpreted
Echo: Report Reviewed by me
Labs: Labs Reviewed by me
[2023-09-01] MEDS: TOPROL XL 25 MG PO ×2 (12:20→21:20)
--- NOTE | 2023-09-01 17:51 | PTCARENOTE ---
Pt with uncontrolled atrial fib this morning at a rate of 120's at rest up to 160 with minimal activity. notified, pt given toprol and her heart rate remained at 100-120. Pt OOB to chair, she denies any discomfort. Pt reports less
coughing and is back to her stated baseline of 92% on room air.
--- NOTE | 2023-09-01 21:08 | PTCARENOTE ---
Pt rec'd at change on shift in recliner chair awake,alert. lungs diminished throughout minimal cough. Afib on telemetry with ht rate 120-138.
Dr Arguelles made aware, additional Toprol xl ordered, awaiting pharmacy to acknowledge.
[2023-09-01] MEDS: LUMIGAN 0.01% 1 DROP BOTH EYES (21:21)
[2023-09-02] VITALS (9 sets, daily range): BP systolic 110–144; BP diastolic 56–121; PULSE 99; BMI 31.5
--- NOTE | 2023-09-02 06:35 | PTCARENOTE ---
Pt reports having slept well ,no complaints. Harsh mostly non productive cough noted. Afib on telemetry
[2023-09-02 06:39] LABS: Blood Urea Nitrogen 26 mg/dl (7-17); Calcium 9.1 mg/dl (8.4-10.2); Carbon Dioxide 32 mmol/L (22-30); Chloride 102 mmol/L (98-107); Estimated Creatinine Clearance 72 ml/min; Glucose 129 mg/dl (70-99); Magnesium 2.3 mg/dl (1.6-2.3); Potassium 4.3 mmol/L (3.5-5.1); Sodium 137 mmol/L (135-145); eGFR > 60.00
[2023-09-02] MEDS: XOPENEX 0.63 MG INHALANT SOLUTION 0.630000000000000004 MG INH ×3 (07:25→20:47)
[2023-09-02] MEDS: LIPITOR 10 MG PO (08:25)
[2023-09-02] MEDS: VIBRAMYCIN 100 MG PO ×2 (08:25→20:12)
[2023-09-02] MEDS: DELTASONE 40 MG PO (08:25)
[2023-09-02] MEDS: CARDIZEM CD 300 MG PO (08:25)
[2023-09-02] MEDS: LASIX 20 MG PO (08:25)
[2023-09-02] MEDS: TOPROL XL 25 MG PO ×2 (08:26→20:12)
[2023-09-02] MEDS: ELIQUIS 5 MG PO ×2 (08:26→20:12)
[2023-09-02] MEDS: MUCINEX 600 MG PO ×2 (08:26→20:12)
--- NOTE | 2023-09-02 08:26 | W.PN.HOSP.TC ---
Today's Communication/Plan
-
Beta-blockers or calcium channel blockers. Oral steroids.
Assessment / Plan
Assessment / Plan
Physical exam:
General: Acutely ill
HEENT: Normocephalic, Atraumatic and Moist Mucous Membranes
Respiratory: Bilateral rhonchi; Decreased breath sounds bilateral, negative Wheezes or Rales
Cardiac: Irregular rate and rhythm, tachycardic today, S1-S2, no murmurs
GI: Soft, Nontender and Nondistended
Musculoskeletal: Less bilateral edema.� No Clubbing, No Cyanosis
Neuro: Awake, Alert and Oriented
Psych: Calm
A/P:
Acute Hypoxic Respiratory Insufficiency, multiple factorial
-Continue supplemental oxygen
-Diuretics, steroids, bronchodilators.
-PT OT eval
-Discussed with daughter at bedside
-Acapella
-Albuterol changed to Xopenex
Atrial Fibrillation with Rapid Ventricular Response
-Remains in A-fib--> cardiology recommend increasing Cardizem to 360 mg daily and metoprolol succinate 50 mg in the morning and 25 mg in the evening
-Discussed with cardiology
-Continue Eliquis for anticoagulation
-Continue cardiac monitoring
Acute on Chronic Diastolic Heart Failure
-Echo Jun 2022: Stage I Diastolic Dysfunction, EF 55-60%.� Mild to moderate aortic regurgitation
-Given 40mg IV -switched to oral diuretics since 08/29
-Monitor Is&Os and Daily Weights
Mildly Elevated Troponin, likely related to elevated heart rate and mild heart failure
-Continue to trend
Mild Acute COPD Exacerbation
-Patient received Decadron 10mg in ED -
-changed IV steroids to oral prednisone today
-Doxycycline 100 mg p.o. twice a day and finish tomorrow
-Continue DuoNeb QID and PRN
Hyperlipidemia
-Continue atorvastatin
DVT proph: Eliquis
Code Status: DNR
Anticipated Discharge: Within 24 hours
Subjective/Interval History
-
Date of Service: September 02, 2023
Patient still in A-fib. No shortness of breath. No chest pain. Afebrile
Objective Data
-
Labs:
Laboratory Results
09/02/23
06:09
Sodium 137
Potassium 4.3
Chloride 102
Carbon Dioxide 32 H
BUN 26 H
Creatinine 0.6
Glucose 129 H
Calcium 9.1
Vital Signs:
Vital Signs
Temp Pulse Resp BP Pulse Ox
98.3 F 108 20 113/71 92
09/02/23 08:05 09/02/23 08:07 09/02/23 08:05 09/02/23 08:07 09/02/23 08:21
I&O
09/01/23 09/02/23 09/03/23
06:59 06:59 06:59
Intake Total 240 / 240 400 / 400
Output Total 1825 / 1825 1200 / 1200
Balance -1585 / -1585 -800 / -800
Review of Systems
-
All other systems: Reviewed and negative
--- NOTE | 2023-09-02 11:44 | W.PN.CD ---
Addendum entered and electronically signed by Nigel Galicia MD 09/02/23 12:06:
Correction:
�Rate: Typically on dilt 300 a day at home.� Not enough currently. Will increase to Dilt CD 360 and increase metoprolol ER to 50 mg AM and 25 PM
Original Note:
Today's Communication / Plan
-
Increase Dilt CD to 360 mg a day
Increase Metoprolol ER to 50 mg AM and 25 mg PM
OK with home on those meds with 'lenient HR control'
Follow up in our office as planned 09/27/2023 at 3:20 PM with me (Grayson). This is my second time seeing the patient. I saw her once in 2019.
Please call with questions
Impression / Plan
-
78 y/o female with PAF on Eliquis, COPD/emphysema, dyslipidemia, thoracic aortic aneurysm, mild-moderate AR, and HFpEF who is here for evaluation of SOB.� She appears to be having a COPD exacerbation which likely lead to her AF RVR, she also missed
a dose of diltiazem.
Emphysema/COPD exacerbation
AFib, paroxysmal
- Rhythm: Was in sinus in office 07/19/2023, has been in sinus several times here, but more AFib then sinus
- Rate: Typically on dilt 300 a day at home. Not enough currently. Will increase to Dilt CD 360 and increase metoprolol ER to 50 mg a day
- Anticoagulation: Eliquis at correct dose 5 BID
- AFib burden: unknown outside of times of COPD exacerbation, will consider 14 day monitor in 2-8 weeks with COPD exacerbation better
- [id number] at least 5 (HF, age1, vascular disease, female gender)
- I do not think she need ablation or antiarrhythmic drug at this time
Suspected HFpEF
- Euvolemic on exam
- Focus on controlling AFib rate
- Daily low dose diuretic
- Will consider adding SGLT2-I and MRA as outpatient
Non-ischemic myocardial injury in setting of hypoxia, tachycardia, peak troponin 0.049 on 08/29/2023
Mild thoracic aortic ectasia vs aneurysm
- Echo 06/29/2023 Asc Ao 4.8 cm OVERESTIMATES aorta
- CT 08/15/2023 Asc Ao 4.3 cm (was 4.1 in 01/2019)
Dyslipidemia
Mild to moderate aortic insuf (echo06/29/2023)
Subjective: Feels much better. No palps.
Physical Exam
Vital Signs/Labs
Vital Signs
Temp Pulse Resp BP Pulse Ox
98.4 F 108 20 113/71 91
09/02/23 11:22 09/02/23 08:07 09/02/23 11:22 09/02/23 08:07 09/02/23 11:38
09/01/23 09/02/23 09/03/23
06:59 06:59 06:59
Actual Weight 78.1 kg 78.1 kg
08/30/23 04:00
09/02/23 06:09
Magnesium 2.3 mg/dl (1.6-2.3) 09/02/23 06:09
Triglycerides 65 mg/dl (10-149) 08/30/23 04:00
LDL Cholesterol, Calc 49 mg/dl 08/30/23 04:00
VLDL Cholesterol, Calc 13 mg/dl (0-30) 08/30/23 04:00
HDL Cholesterol 73 mg/dl 08/30/23 04:00
08/29/23
11:22
Ung-G-Kmwrmgfvzgc Pept 1600
Physical Exam
Constitutional: No acute distress
EENT: Anicteric
Cardiovascular: Rhythm/rate is irregular, S1S2 is normal and Rub absent
Respiratory: Respiratory effort normal, Wheeze Absent and Crackles Absent
GI: Soft and Distention absent
Neuro/Psych: AO x 3
Data Reviewed
-
Date of Service: September 02, 2023
--- NOTE | 2023-09-02 15:00 | CM ---
spoke to pt in room, we discussed VN services. she is agreeable to using VN, referral faxed.
--- NOTE | 2023-09-02 19:18 | PTCARENOTE ---
Pt denies any discomfort. Better heart rate control today, able to walk in halls with top heart rate @120 and 90-100 at rest. She remains in atrial fib. Plan to monitor response to increased dose of diltiazem and toprol on 09/02 and pt will check her
heart rate and rhythm and BP's at home.
[2023-09-02] MEDS: LUMIGAN 0.01% 1 DROP BOTH EYES (20:12)
--- NOTE | 2023-09-02 20:43 | PTCARENOTE ---
Assumed care. Patient in chair, assisted to the bathroom with rolling walker, voided urine yellow clear. Occasional dry non-productive cough, dyspneic at times, resolves with purse lip breathing. A-Fib HR 110. Asa stockings removed, +1 pedal edema,
elevated in bed. Call mao in reach
[2023-09-03] VITALS (8 sets, daily range): BP systolic 105–124; BP diastolic 59–94; PULSE 118; O2SAT 96; BMI 31.8
[2023-09-03 03:52] LABS: Blood Urea Nitrogen 28 mg/dl (7-17); Calcium 9.4 mg/dl (8.4-10.2); Carbon Dioxide 33 mmol/L (22-30); Chloride 97 mmol/L (98-107); Estimated Creatinine Clearance 73 ml/min; Glucose 136 mg/dl (70-99); Sodium 138 mmol/L (135-145); eGFR > 60.00
[2023-09-03] MEDS: XOPENEX 0.63 MG INHALANT SOLUTION 0.630000000000000004 MG INH ×3 (07:28→19:21)
[2023-09-03] MEDS: VIBRAMYCIN 100 MG PO ×2 (08:36→19:48)
[2023-09-03] MEDS: LASIX 20 MG PO (08:36)
[2023-09-03] MEDS: MUCINEX 600 MG PO ×2 (08:36→19:48)
[2023-09-03] MEDS: LIPITOR 10 MG PO (08:37)
[2023-09-03] MEDS: ELIQUIS 5 MG PO ×2 (08:37→19:48)
[2023-09-03] MEDS: DELTASONE 40 MG PO (08:37)
[2023-09-03] MEDS: TOPROL XL 50 MG PO (08:37)
[2023-09-03] MEDS: CARDIZEM CD 360 MG PO (08:38)
--- NOTE | 2023-09-03 09:02 | W.PN.HOSP.TC ---
Today's Communication/Plan
-
Continue rate control and anticoagulation.
Assessment / Plan
Assessment / Plan
Physical exam:
General: Acutely ill
HEENT: Normocephalic, Atraumatic and Moist Mucous Membranes
Respiratory: Bilateral rhonchi; Decreased breath sounds bilateral, negative Wheezes or Rales
Cardiac: Irregular rate and rhythm, tachycardic today, S1-S2, no murmurs
GI: Soft, Nontender and Nondistended
Musculoskeletal: Less bilateral edema.� No Clubbing, No Cyanosis
Neuro: Awake, Alert and Oriented
Psych: Calm
A/P:
Acute Hypoxic Respiratory Insufficiency, multiple factorial
-Continue supplemental oxygen
-Diuretics, steroids, bronchodilators.
-PT OT eval
-Discussed with daughter at bedside
-Acapella
-Albuterol changed to Xopenex
-I discussed about discharge planning either later today or tomorrow morning and family feels more comfortable tomorrow morning and it is not unreasonable given changes on her cardiac medications.
Atrial Fibrillation with Rapid Ventricular Response
-Remains in A-fib--> cardiology recommend increasing Cardizem to 360 mg daily and metoprolol succinate 50 mg in the morning and 25 mg in the evening
-Heart rate still elevated but much improved and today is the first time she is receiving increased doses of rate control medications. Overall we are more lenient with her heart rate per cardiology recommendations I'd assume given her age but will
need to be follow-up as outpatient closely.
-Discussed with cardiology yesterday
-Continue Eliquis for anticoagulation
-Continue cardiac monitoring
Acute on Chronic Diastolic Heart Failure
-Echo Jun 2022: Stage I Diastolic Dysfunction, EF 55-60%.� Mild to moderate aortic regurgitation
-Given 40mg IV -switched to oral diuretics since 08/29
-Monitor Is&Os and Daily Weights
Mildly Elevated Troponin, likely related to elevated heart rate and mild heart failure
-Continue to trend
Mild Acute COPD Exacerbation
-Patient received Decadron 10mg in ED -
-changed IV steroids to oral prednisone today
-Doxycycline 100 mg p.o. twice a day and finish tomorrow
-Continue DuoNeb QID and PRN
Hyperlipidemia
-Continue atorvastatin
DVT proph: Eliquis
Code Status: DNR
Anticipated Discharge: Within 24 hours
Subjective/Interval History
-
Date of Service: September 03, 2023
Patient feels better today. Heart rate still elevated but much improved and today is the first time she is receiving increased doses of rate control medications. Denies chest pain. Denies shortness of breath. She does not sleep very well last
night after lab work.
Objective Data
-
Labs:
Laboratory Results
09/03/23
03:20
Sodium 138
Potassium 4.0
Chloride 97 L
Carbon Dioxide 33 H
BUN 28 H
Creatinine 0.5 L
Glucose 136 H
Calcium 9.4
Vital Signs:
Vital Signs
Temp Pulse Resp BP Pulse Ox
98.7 F 88 20 119/89 92
09/03/23 07:09 09/03/23 07:30 09/03/23 07:30 09/03/23 07:09 09/03/23 07:30
I&O
09/02/23 09/03/23 09/04/23
06:59 06:59 06:59
Intake Total 400 / 400 240 / 240
Output Total 1200 / 1200 1250 / 1250
Balance -800 / -800 -1010 / -1010
--- NOTE | 2023-09-03 09:35 | PTCARENOTE ---
Assumed care of pt from night RN. Pt received awake and alert, Ox3. VSS, CM shows AF 80-100's, POX 92% on RA. Loose non productive cough noted. She denies any pain or discomfort, sitting up in chair for breakfast.
[2023-09-03] MEDS: TOPROL XL 25 MG PO (19:48)
[2023-09-03] MEDS: LUMIGAN 0.01% 1 DROP BOTH EYES (20:48)
--- NOTE | 2023-09-04 01:20 | PTCARENOTE ---
Pt. remains in A-fib on the monitor, rate 80's-120's (with ambulation). Ambulatory with minimal assist, some HERNÁNDEZ assessed; RA pulse ox ranging 90-98%. Nocturnal pulse ox monitor set up by CASE MANAGEMENT SPECIALIST. Pt. sleeping.
[2023-09-04 04:27] VITALS: BMI 31.5
[2023-09-04 04:29] VITALS: BP 141/77
[2023-09-04] MEDS: XOPENEX 0.63 MG INHALANT SOLUTION 0.630000000000000004 MG INH ×2 (07:28→13:47)
[2023-09-04 07:57] VITALS: BP 124/75
[2023-09-04] MEDS: MUCINEX 600 MG PO (08:47)
[2023-09-04] MEDS: LASIX 20 MG PO (08:47)
[2023-09-04] MEDS: LIPITOR 10 MG PO (08:48)
[2023-09-04] MEDS: VIBRAMYCIN 100 MG PO (08:48)
[2023-09-04] MEDS: DELTASONE 40 MG PO (08:48)
[2023-09-04] MEDS: CARDIZEM CD 360 MG PO (08:48)
[2023-09-04] MEDS: ELIQUIS 5 MG PO (08:49)
[2023-09-04] MEDS: TOPROL XL 50 MG PO (08:49)
--- NOTE | 2023-09-04 10:21 | W.PN.HOSP.TC ---
Today's Communication/Plan
-
Discharge planning today
Assessment / Plan
Assessment / Plan
Physical exam:
General: Acutely ill
HEENT: Normocephalic, Atraumatic and Moist Mucous Membranes
Respiratory: Bilateral rhonchi; Decreased breath sounds bilateral, negative Wheezes or Rales
Cardiac: Irregular rate and rhythm, S1-S2, no murmurs
GI: Soft, Nontender and Nondistended
Musculoskeletal: Less bilateral edema.� No Clubbing, No Cyanosis
Neuro: Awake, Alert and Oriented
Psych: Calm
A/P:
Acute Hypoxic Respiratory Insufficiency, multiple factorial
-Continue supplemental oxygen
-Diuretics, steroids, bronchodilators.
-PT OT eval
-Discussed with daughter at bedside
-Acapella
-Albuterol changed to Xopenex
-Discussed with daughter at bedside today on 09/03
-Discharge planning today
Atrial Fibrillation with Rapid Ventricular Response
-Remains in A-fib but rate much controlled--> cardiology recommend increasing Cardizem to 360 mg daily and metoprolol succinate 50 mg in the morning and 25 mg in the evening
-Overall we are more lenient with her heart rate per cardiology recommendations I'd assume given her age but will need to be follow-up as outpatient closely.
-Discussed with cardiology prior
-Continue Eliquis for anticoagulation
-Continue cardiac monitoring
Acute on Chronic Diastolic Heart Failure
-Echo Jun 2022: Stage I Diastolic Dysfunction, EF 55-60%.� Mild to moderate aortic regurgitation
-Given 40mg IV -switched to oral diuretics since 08/29
-Monitor Is&Os and Daily Weights
Mildly Elevated Troponin, likely related to elevated heart rate and mild heart failure
-Continue to trend
Mild Acute COPD Exacerbation
-Patient received Decadron 10mg in ED -
-changed IV steroids to oral prednisone today
-Doxycycline 100 mg p.o. twice a day and finish tomorrow
-Continue DuoNeb QID and PRN
Hyperlipidemia
-Continue atorvastatin
DVT proph: Eliquis
Code Status: DNR
Anticipated Discharge: Today
Subjective/Interval History
-
Date of Service: September 04, 2023
Denies chest pain or shortness of breath
Objective Data
-
Vital Signs:
Vital Signs
Temp Pulse Resp BP Pulse Ox
98.5 F 88 20 141/77 92
09/04/23 07:55 09/04/23 07:30 09/04/23 07:55 09/04/23 04:29 09/04/23 07:55
I&O
09/03/23 09/04/23 09/05/23
06:59 06:59 06:59
Intake Total 240 / 240 240 / 240
Output Total 1250 / 1250 900 / 900
Balance -1010 / -1010 -660 / -660
--- NOTE | 2023-09-04 11:27 | PTCARENOTE ---
Assumed care of pt from night RN. Pt received awake and alert, sitting up in chair. VSs, CM shows AF 80's, POX 92% on RA. Pt ambulating in room with walker. She denies any pain or discomfort at this time, will continue to monitor closely.
[2023-09-04 11:47] VITALS: BP 123/83
--- NOTE | 2023-09-04 13:38 | W.DCSUMMARY ---
Discharge Summary
Discharge Data
Date of Admission: 08/29/23
Date of Discharge: 09/04/23
-
Pending Results: No
Hospital Course
Patient 78 years old female with history of A-fib, COPD, CHF, presented to the hospital with shortness of breath and found to be hypoxic and in A-fib. Patient was treated with IV diuretics and subsequently switched to oral diuretics. Cardiology
consulted. She was also given IV steroids and bronchodilators and subsequently able to switch her steroids to oral. Her atrial fibrillation was difficult to control and several rate control agents were added to her regimen. Patient improved from
COPD perspective, and she also improved from atrial fibrillation perspective but will continue to monitor as outpatient with cardiology to see if she requires further treatment such as antiarrhythmics or cardioversion and or ablation. Cardiology
cleared her for discharge. We assessed her for home oxygen needs but her pulse ox remained stable on room air. We also checked her oxygen at nighttime but she did not require any oxygen supplementation either. Otherwise, patient hemodynamically
stable and she will be discharged in stable condition today.
Discharge duration: 36 minutes
Discharge Plan
-
Patient Disposition: Home with Home Care
Discharge Diagnosis/Procedures: Acute hypoxic respiratory insufficiency. Paroxysmal atrial fibrillation. Chronic obstructive pulmonary disease exacerbation. Acute on diastolic congestive heart failure. Elevated troponin due to non-ischemic
myocardial injury due to heart failure. History of thoracic aortic aneurysm.
Diet: Low Cholesterol, 2 Gram Sodium and Restrict fluids to 48 oz
Activity: As tolerated
Driving Restrictions: As prior to admission
Blood Work: Please PCP to order CBC, BMP, magnesium within 1 week
Specialty Instructions: Weigh Daily- Call MD for wt gain/loss 3 lbs overnight/5 lbs in 1 week
Referrals:
[facility] [Outside]
Chiquis Sweeney MD [Family Provider] - in less than 1 week
Prescriptions:
New
diltiazem HCl 180 mg Capsule,Extended Release 24hr
360 mg PO DAILY 30 Days Qty: 60 0RF
metoprolol succinate 50 mg Tablet Extended Release 24 Hr
50 mg PO DAILY 30 Days Qty: 30 0RF
metoprolol succinate 25 mg Tablet Extended Release 24 Hr
25 mg PO DAILY@1999 30 Days Qty: 30 0RF
prednisone 10 mg Tablet
See Rx Instructions .ROUTE .COMPLEX Qty: 45 0RF
Rx Instructions:
Take By Mouth:
50 mg daily x3 days, 40 mg daily x3 days,
30 mg daily x3 days, 20 mg daily x3 days,
10 mg daily x3 days
Continued
atorvastatin 10 mg Tablet
10 mg PO DAILY
alendronate 70 mg Tablet
70 mg PO MO@0800
cyanocobalamin (vitamin B-12) 1,000 mcg Tablet
1,000 mcg PO DAILY
therapeutic multivitamin Tablet
1 tab PO DAILY
tiotropium bromide [Spiriva with HandiHaler] 18 mcg Capsule, W/Inhalation Device
1 cap INHALATION R DAILY
cholecalciferol (vitamin D3) 50 mcg (2,000 unit) Tablet
50 mcg PO DAILY
Lumigan 0.01 % drops
1 drp BOTH EYES HS
Eliquis 5 mg Tablet
5 mg PO BID Qty: 60 0RF
furosemide 40 mg tablet
20 mg PO DAILY
Discontinued
diltiazem HCl 300 mg capsule,extended release 24hr
300 mg PO DAILY
Discharge Orders:
Discharge Patient (As Directed); Ordered 09/04/23
Ordered By: Burke Pena
Care Plan Goals
Care Plan Goals:
Problem: Readiness for enhanced knowledge related to diagnosis and treatment plan
Goal: Understand your diagnosis and treatment plan needs, including medications if applicable.
Instructions: Know your diagnosis, underlying causes and treatment plan options, including medications if applicable. Consult with your health care team to learn about your diagnosis and treatment plan, including medications if applicable.
Discharge Date and Time
Discharge Date/Time: 09/04/23 16:09
[2023-09-04 15:39] VITALS: BP 106/63
--- NOTE | 2023-09-04 16:08 | PTCARENOTE ---
All D/C info reviewed with pt, all questions answered. Pt D/C'd home with daughter, walker received from PT.
== END 2023-09-04 16:09 | disposition home health service (06) | DRG 291 ==
LOC: IVU 15:39
PROVIDERS: Nurse Practitioner Family; Physician Assistant; Physician Assistant Medical; ADMITTING PHYSICIAN Hospitalist; CONSULT PHYSICIAN Internal Medicine Cardiovascular Disease; EMERGENCY PHYSICIAN Emergency Medicine; FAMILY PHYSICIAN Family Medicine
DX: I50.33 Acute on chronic diastolic (congestive) heart failure (principal); J96.01 Acute respiratory failure with hypoxia; I5A Non-ischemic myocardial injury (non-traumatic); J44.1 Chronic obstructive pulmonary disease with (acute) exacerbation; I48.0 Paroxysmal atrial fibrillation; Z11.52 Encounter for screening for COVID-19; Z87.891 Personal history of nicotine dependence; Z79.01 Long term (current) use of anticoagulants; Z66 Do not resuscitate; E78.00 Pure hypercholesterolemia, unspecified
CPT/HCPCS: 71046; 80048; 80053; 80061; 83605; 83735; 83880; 84484; 85025; 85027; 87502; 87811; 93005; 94640; 94762; 96361; 96374; 97116; 97163; 97166; 97530; 97535; 99285

== ENCOUNTER 2024-01-04 15:50 | Inpatient (IN) | payer MEDICARE, SELFPAY ==
[2024-01-04] VITALS (10 sets, daily range): BP systolic 112–148; BP diastolic 49–76; BMI 33.3
--- NOTE | 2024-01-04 13:02 | ED.GENMED ---
History of Present Illness
General
Chief Complaint: Breathing Problem
Source: patient and family
Exam Limitations: none
Time Seen by Provider: 01/04/24 12:47
History of Present Illness
History of Present Illness:
78-year-old female sudden shortness of breath at 3 AM. No chest pain no pleuritic pain no recent infectious issues no fever or cough. This is historically been associated with an infectious issue although she has had no recent infectious symptoms.
Seen at the primary care office and sent for further care. Shortness of breath is moderate to severe in nature.
Past History
Past History
ED Past Medical History: Arrthythmia, CHF, COPD and Hypercholesterolemia
Social History
Tobacco: Former smoker
Review of Systems
Review of Systems
All Other Systems: Not applicable
Constitutional: Denies fever or chills
Respiratory: Denies cough
Cardiac: Denies chest pain or syncope
Phy Exam
Physical Exam
Physical Exam:
GENERAL: Alert and oriented. Nontoxic-appearing warm and dry and perfusing however moderate tachypnea with pursed lip breathing and mildly breathless with
EYE: Orbits normal.
NECK: Supple
ENT: Pharynx without erythema
CARDIAC: Regular rate and rhythm without any obvious murmurs.
LUNGS: Moderately breathless. Decreased breath sounds diffusely. Dry crackles in the bases. No wheezing or rhonchi.
ABDOMEN: Soft, without focal tenderness or distention
NEUROLOGICAL: Alert and oriented , grossly non-focal
SKIN: Warm and dry, no rash or lesion, no discoloration, skin intact.
MUSCULOSKELETAL: Mild bilateral lower extremity pitting edema
PSYCH: Normal and appropriate interaction.
Scores
Heart Failure Risk
Heart Failure Risk Score: Not Applicable
Course
Orders/Labs/Results
Orders:
Orders
01/04/24 Breakfast
Sodium, 2 Gram
At Your Request: Limited Participation
Does patient need a safe tray?: No
Fluid Restriction: 1440 mL/day (48 oz)
01/04/24 12:51
Electrocardiogram (*1) Stat
Reason for Study: Other
Other Reason for Exam: chest pain
Cardiac Monitoring- Treatment ONCE
EKG- Treatment ONCE
IV Insert/Care/Rem.- Treatment PRN
CR Chest Portable - 1 View Urgent
Comment:
Reason For Exam: sob hypoxia
Reason Study Needs to be Portable: Patient Unstable
01/04/24 12:58
Basic Metabolic Panel Urgent
COVID-19 Antigen Urgent
Source: Nasal Swab
Complete Blood Count/With Diff Urgent
D-Dimer Urgent
NT-proBNP Urgent
Troponin I Urgent
Influenza A+B Rapid Molecular Urgent
ARIC Source: Nasal Swab
Specimen Description:
01/04/24 12:59
Dexamethasone Sod Phosphate [Decadron] 8 mg IV NOW STA
Ipratropium/Albuterol Sulfate [Duoneb] 3 ml INH R NOW ONE
01/04/24 14:13
Albuterol Sulfate [Ventolin Nebules] 7.5 mg INH R NOW STA
01/04/24 14:36
Procalcitonin Routine
PCT Algorithmm Indication: Respiratory
01/04/24 14:55
Admit/Transfer Patient As Directed
Co-Sign Provider:
Level of Care: Inpatient admission
Assign to:: Telemetry
Physician / Group: Golden
Diagnosis: Hypoxia, COPD Exac
Reason for Telemetry: Arrhythmia
Date to Stop Telemetry: 01/07/24
Time to Stop Telemetry: 11:00
Reason for Hospitalization: IV steroids, oxygen and nebs
Expected length of stay greater than two midnights?: Yes
ELOS- Estimated Length of Stay in days: 3
I certify the patient meets the requirements for IP care: Yes
01/04/24 14:57
PRN Pain Medication Management As Directed
May give lesser potent ordered pain med per pt: Yes
preference::
Protocol:: Medication orders for pain may be administered in a
manner that supports deferring to patient preference
when the pt is:
- Requesting an ordered lesser potent pain medication.
Least to most potent pain medications are defined
as: acetaminophen < NSAID < tramadol < opioids
(morphine, oxycodone, hydromorphone).
- Requesting a lesser dose of the same medication IF
ORDERED.
- Requesting a less intrusive route of administration
if both routes are prescribed by the provider (PO <
IV).
01/04/24 15:00
Code Status As Directed
Resuscitation Status: Limited DNR
Limited DNR: -No intubation
01/04/24 17:26
Acetaminophen [Tylenol] 650 mg PO Q4HPRN PRN
Ipratropium Nebs [Atrovent Nebules] 0.5 mg INH R Q6HPRN PRN
Levalbuterol [Xopenex 0.63 mg Inhalant Solution] 0.63 mg INH R Q6HPRN PRN
01/04/24 17:26
Case Management Consult Once
Case Management Consult: Durable Medical Equip
Comment: Home Nebulizer Machine
Activity As Directed
Activity Level: Out of Bed-Early Mobility
With Assistance
I&O [Intake/ Output] As Directed
Frequency: q12h
Vital Signs As Directed
Frequency: Per unit guidelines
Weight As Directed
Frequency: Daily
Xopenex Reason for Use As Directed
Reason for ordering Xopenex instead of Albuterol: tachycardia/arrhytmia
Oxygen Therapy [O2 Therapy] [RESP] Routine
Titrate/Wean O2 to maintain O2 sat greater than (%): 90
Pulse Ox/cont/shift [RESP] Routine
Quantity: 1
Rx Incentive Spirometry [RESP] Routine
Frequency: q1h while awake
Ot Eval And Treat Routine
Pt Eval And Treat Routine
Activity Level: Out of Bed-Early Mobility
01/04/24 18:00
Dapagliflozin [Farxiga] 10 mg PO QPM
01/04/24 20:00
Apixaban [Eliquis] 5 mg PO BID
Ipratropium Nebs [Atrovent Nebules] 0.5 mg INH R TID
Levalbuterol [Xopenex 0.63 mg Inhalant Solution] 0.63 mg INH R TID
01/05/24 00:00
Dexamethasone Sod Phosphate [Decadron] 4 mg IV Q12H
01/05/24 06:00
Basic Metabolic Panel IN AM
Complete Blood Count/No Diff IN AM
01/05/24 08:00
Atorvastatin [Lipitor] 10 mg PO DAILY
Cholecalciferol (Vitamin D3) [VITAMIN D3 (cholecalciferol)] 50 mcg PO DAILY
Cyanocobalamin [Vitamin B-12] 1,000 mcg PO DAILY
Diltiazem Extended Release [Cardizem Cd] 360 mg PO DAILY
Furosemide [Lasix] 20 mg PO DAILY
Metoprolol Xl [Toprol Xl] 25 mg PO DAILY
01/07/24 11:00
DC Protocol for Telemetry ONCE
Abnormal Lab Results
01/04/24
12:58
WBC 17.5 H 10^3/uL
(4.8-10.8)
MCH 31.2 H pg
(27.0-31.0)
Abs Immat Gran (auto) 0.1 H 10^3/uL
(0-0.05)
Absolute Neuts (auto) 15.0 H 10^3/uL
(1.4-6.5)
Absolute Monos (auto) 1.2 H 10^3/uL
(0.1-0.6)
Neutrophils % 85.9 H %
(42.2-75.2)
Lymphocytes % 6.6 L %
(20.5-51.1)
Carbon Dioxide 32 H mmol/L
(22-30)
Glucose 115 H mg/dl
(70-99)
01/04/24 12:58
01/04/24 12:58
Vital Signs
Initial and Last Documented VS:
Initial Vital Signs
Temp Pulse Resp BP Pulse Ox
99.4 F 83 22 148/71 85
01/04/24 12:42 01/04/24 12:42 01/04/24 12:42 01/04/24 12:42 01/04/24 12:42
Last Documented Vital Signs
Temp Pulse Resp BP Pulse Ox
98.1 F 85 18 133/76 95
01/04/24 18:04 01/04/24 18:04 01/04/24 18:04 01/04/24 18:04 01/04/24 18:04
*Radiology
Radiology exam reviewed: preliminary read by ED provider (Questionable right upper lobe infiltrate) and radiology read reviewed (Negative)
*Pulse Oximetry
Patient hypoxic: yes
*EKG
Interpreted by ED Provider?: Yes
Interpretation: normal
Comparison EKG: no changes
Heart Rate: 73
Rate: normal
Rhythm: sinus
[place]: left axis deviation
Interval: normal interval
QRS Pattern: normal QRS
Ischemia: no ischemia
*Systems Trainer Interpretation
Rate: normal
Interpretation: normal
Heart Rate: 80
Rhythm: sinus
*Critical Care Note
Total Time (30-74mins, 75-104mins- exclusive of procedures): Not Applicable
Update Note
Update Note:
Patient improved significantly throughout her ER stay. No signs of heart failure. D-dimer negative. On Eliquis. Highly doubt pulmonary emboli. COPD exacerbation. However with significant hypoxia on arrival patient warrants inpatient management
ED Attending Note
-
Portions of this chart may have been created with voice recognition software.� Occasional wrong word or��sound alike� substitutions may have occurred due to the inherent limitations of voice recognition software.
Discharge Plan
Departure
Patient Disposition: Admit
Date of Disposition: 01/04/24
Time of Disposition: 14:16
Presentation/result/management discussed w/ accepting MD/DO: Hospitalist
Discharge Problem:
Respiratory distress/hypoxia, COPD exacerbation
Interventions
Interventions:
*Risk Screen - Suicide Last Done: 01/04/24 12:48
*General Assessment Last Done: 01/04/24 12:48
*Neglect/Abuse Screening Last Done: 01/04/24 12:48
ED- Fall Risk Assessment Last Done: 01/04/24 12:48
*ED COVID-19 Vaccine History Last Done: 01/04/24 18:01
*Nursing Disposition Last Done: 01/04/24 17:20
ED- Cardiac Assessment Last Done: 01/04/24 12:48
ED- Pulmonary Assessment Last Done: 01/04/24 12:48
Discharge Date and Time
Discharge Date/Time: 01/04/24 18:06
[2024-01-04] MEDS: DUONEB 3 ML INH (13:14)
[2024-01-04] MEDS: DECADRON 8 MG IV (13:15)
[2024-01-04 13:24] LABS: % Basophils 0.3 % (0-2); % Eosinophils 0.2 % (0-6); % Immature Granulocytes 0.4 % (0-0.5); % Lymphocytes 6.6 % (20.5-51.1); % Monocytes 6.6 % (1.7-9.3); % Neutrophils 85.9 % (42.2-75.2); Absolute Basophils 0.1 10^3/uL (0-0.2); Absolute Immature Granulocytes 0.1 10^3/uL (0-0.05); Absolute Lymphocytes 1.2 10^3/uL (1.2-3.4); Absolute Monocytes 1.2 10^3/uL (0.1-0.6); Hemoglobin 14.8 g/dL (12.0-16.0); Mean Corp Hgb Conc. 33.6 g/dL (33.0-37.0); Mean Corpuscular Hgb 31.2 pg (27.0-31.0); Mean Corpuscular Volume 92.8 fL (81.0-99.0); Mean Platelet Volume 9.9 fL (7.4-10.4); Nucleated Red Blood Cells % 0 %; Platelet Count 245 10^3/uL (130-400); Red Blood Cell Count 4.74 10^6/uL (4.20-5.40); Red Cell Dist. Width 12.3 % (11.5-14.5); White Blood Cell Count 17.5 10^3/uL (4.8-10.8)
[2024-01-04 13:36] LABS: COVID-19 Antigen Negative (Negative)
[2024-01-04 13:41] LABS: D-Dimer 0.29 ug/mlFEU (0.00-0.50)
[2024-01-04 13:48] LABS: Blood Urea Nitrogen 16 mg/dl (7-17); Carbon Dioxide 32 mmol/L (22-30); Chloride 98 mmol/L (98-107); Glucose 115 mg/dl (70-99); Potassium 4.6 mmol/L (3.5-5.1); Sodium 138 mmol/L (135-145); eGFR > 60.00
[2024-01-04 13:59] LABS: NT-proBNP 488 pg/ml; Troponin I < 0.012 ng/ml
[2024-01-04] MEDS: VENTOLIN NEBULES 7.5 MG INH (14:30)
--- NOTE | 2024-01-04 14:31 | HPS.HSE ---
Family Physician
-
Family Physician:
Chief Complaint
-
Shortness of Breath
History of Present Illness
Patient is a an 78 y/o female with a PMH of AFib on Eliquis, COPD, HFpEF, and HLD who reports to the ED for shortness of breath. Patient woke up around 3am feeling like she just couldn't 'catch her breath,' and was purse lip breathing. Her O2
saturation at home was 73%, which caused her to use her albuterol inhaler once. She doesn't think she got any of the medication from the one puff because she has trouble breathing deeply. She admits she had trouble taking her daily Spiriva this
morning. She saw her PCP this morning who told her to come to the ED. She states that the lowest her O2 saturation was 70% after exertion at her PCP's office. She denies chest pain, palpitations, pleuritic pain, fever, increased cough, no sputum
production, nausea, vomiting, diarrhea, abdominal pain, or dysuria. She denies any recent illnesses or recent sick contacts. She has been admitted twice recently for COPD exacerbations in June and August.
Medical History
Past Medical History
Past Medical History: Reports Other
Additional Past Medical History:
Chronic Diastolic Heart Failure
Paroxysmal Atrial Fibrillation
Hyperlipidemia
COPD
Osteoporosis
Past Surgical History: Reports Other
Additional Past Surgical History:
Blackwell Tooth Extraction
Social History
Tobacco: Former Smoker
Alcohol: None
Drug: None
Living: With Family
Family History
Family History: Not pertinent
Allergies / Home Medications
Allergies reflects when Allergies were last updated in [facility].
Home Medications with original date entered in [facility]
Allergy/Medication List:
Allergies
Allergy/AdvReac Type Severity Reaction Status Date / Time
No Known Allergies Allergy Verified 08/29/23 11:11
Home Medications
alendronate 70 mg tablet 70 mg PO MO@0800 bones 02/09/22
atorvastatin 10 mg tablet 10 mg PO DAILY High cholesterol 02/09/22
bimatoprost 0.01 % eye drops (Lumigan) 1 drp BOTH EYES HS Eye condition 02/09/22
cholecalciferol (vitamin D3) 50 mcg (2,000 unit) tablet 50 mcg PO DAILY Supplement 02/09/22
cyanocobalamin (vitamin B-12) 1,000 mcg tablet 1,000 mcg PO DAILY Supplement 02/09/22
therapeutic multivitamin 1 tab PO DAILY Supplement 02/09/22
tiotropium bromide 18 mcg capsule with inhalation device (Spiriva with HandiHaler) 1 cap inhalation R DAILY Lung/breathing issues 02/09/22
apixaban 5 mg tablet (Eliquis) 5 mg PO BID #60 tabs 07/01/23
dapagliflozin propanediol 10 mg tablet (Farxiga) 10 mg PO QPM 01/04/24
diltiazem HCl 360 mg capsule,24 hr,extended release 360 mg PO DAILY 01/04/24
furosemide 20 mg tablet (Lasix) 20 mg PO DAILY 01/04/24
metoprolol succinate 25 mg tablet,extended release 24 hr 25 mg PO DAILY 01/04/24
Review of Systems
-
A 12 point ROS was completed and negative except as noted: Yes
Constitutional: Denies Fever or Chills
Respiratory: Reports See HPI
Cardiac: Denies Chest Pain or Palpitations
Abdomen/GI: Denies Abdominal Pain, Nausea, Vomiting or Diarrhea
Musculoskeletal: Denies Edema
Physical Exam
Vital Signs
Vital Signs
Temp Pulse Resp BP Pulse Ox
99.4 F 72 20 126/63 97
01/04/24 12:42 01/04/24 13:15 01/04/24 13:15 01/04/24 13:15 01/04/24 13:00
Physical Exam
General: Comfortable and Conversant
HEENT: Anicteric, Moist mucous membranes and Oxygen (Nasal Cannula)
Respiratory: Rales (Dry rales bilateral bases), Non Labored Respirations and Other (Wheezes improved following nebulizer treatment)
Cardiac: S1/S2, Regular Rhythm and Murmur; No Tachycardia
GI: Soft, Non Tender and Non Distended
Rectal: Deferred by Provider
Musculoskeletal: No Clubbing, No Cyanosis and No Edema
Skin: Warm and Dry
Neuro: Awake, Alert, Oriented and Nonfocal/grossly intact
Psych: Calm
Laboratory Results
-
01/04/24 12:58
01/04/24 12:58
Laboratory Results
Troponin I < 0.012 ng/ml 01/04/24 12:58
Data Reviewed
-
Diagnostic Radiology: Report Reviewed by me
Lab Data: Labs Reviewed by me
Old Records: Reviewed
Impression/Plan
-
Acute Hypoxic Respiratory Insufficiency secondary to Acute COPD Exacerbation
-Continue supplemental oxygen
-Continue Decadron
-Continue Xopenex/Ipratropium TID and PRN
Leukocytosis, no clear source of infection
-Hold on antibiotics for now
-Check Procalcitonin
-Recheck WBC count in AM
Chronic Diastolic Heart Failure
-Echo Jun 2023: Stage I Diastolic Dysfunction, EF 55-60%. Mild to moderate aortic regurgitation
-Continue Farxiga and Lasix
-Monitor Is&Os and Daily Weights
Paroxysmal Atrial Fibrillation
-Continue Diltiazem and Metoprolol
-Continue Eliquis
Hyperlipidemia
-Continue atorvastatin
DVT proph: Eliquis
Code Status: Limited DNR - Do Not Intubate
--- NOTE | 2024-01-04 15:16 | W.PN.UPDATE ---
Update Note
Progress Note Update
78 y/o female with a PMH of AFib on Eliquis, COPD, HFpEF, and HLD who reports to the ED for shortness of breath. Patient woke up around 3am feeling like she just couldn't 'catch her breath,' and was purse lip breathing. Her O2 saturation at home was
73%, which caused her to use her albuterol inhaler once. She doesn't think she got any of the medication from the one puff because she has trouble breathing deeply. She admits she had trouble taking her daily Spiriva this morning. She saw her PCP
this morning who told her to come to the ED. She states that the lowest her O2 saturation was 70% after exertion at her PCP's office. She denies chest pain, palpitations, pleuritic pain, fever, increased cough, no sputum production, nausea,
vomiting, diarrhea, abdominal pain, or dysuria. She denies any recent illnesses or recent sick contacts. She has been admitted twice recently for COPD exacerbations in June and August.
A/P:
Acute Hypoxic Respiratory Insufficiency secondary to Acute COPD Exacerbation
-Continue supplemental oxygen
-Continue Decadron
-Continue Xopenex/Ipratropium TID and PRN
Leukocytosis, no clear source of infection
-Hold on antibiotics for now
-Check Procalcitonin
-Recheck WBC count in AM
Chronic Diastolic Heart Failure
-Echo Jun 2023: Stage I Diastolic Dysfunction, EF 55-60%. Mild to moderate aortic regurgitation
-Continue Farxiga and Lasix
-Monitor Is&Os and Daily Weights
Paroxysmal Atrial Fibrillation
-Continue Diltiazem and Metoprolol
-Continue Eliquis
Hyperlipidemia
-Continue atorvastatin
DVT proph: Eliquis
Code Status: Limited DNR - Do Not Intubate
--- NOTE | 2024-01-04 18:00 | PTCARENOTE ---
Received pt form ED. Sonu3, VSS,. Oriented to unit.
[2024-01-04] MEDS: ATROVENT NEBULES 0.5 MG INH (19:32)
[2024-01-04] MEDS: XOPENEX 0.63 MG INHALANT SOLUTION INH (19:32)
[2024-01-04] MEDS: FARXIGA 10 MG PO (20:38)
[2024-01-04] MEDS: ELIQUIS 5 MG PO (20:38)
[2024-01-04 21:34] LABS: Procalcitonin < 0.05 ng/ml (0.0-0.25)
[2024-01-04] MEDS: DECADRON 4 MG IV (23:06)
[2024-01-05] VITALS (9 sets, daily range): BP systolic 117–135; BP diastolic 53–65; PULSE 75; O2SAT 92–96; BMI 33.0
[2024-01-05] MEDS: ATROVENT NEBULES 0.5 MG INH ×3 (07:38→19:23)
[2024-01-05] MEDS: XOPENEX 0.63 MG INHALANT SOLUTION INH ×3 (07:38→19:22)
[2024-01-05] MEDS: CARDIZEM CD 360 MG PO (08:13)
[2024-01-05] MEDS: VITAMIN B-12 1000 MCG PO (08:14)
[2024-01-05] MEDS: ELIQUIS 5 MG PO ×2 (08:14→21:13)
[2024-01-05] MEDS: TOPROL XL 25 MG PO (08:14)
[2024-01-05] MEDS: LIPITOR 10 MG PO (08:14)
[2024-01-05] MEDS: VITAMIN D3 (cholecalciferol) 50 MCG PO (08:14)
[2024-01-05] MEDS: LASIX 20 MG PO (08:15)
[2024-01-05 09:23] LABS: Hematocrit 43.2 % (37.0-47.0); Hemoglobin 14.8 g/dL (12.0-16.0); Mean Corp Hgb Conc. 34.3 g/dL (33.0-37.0); Mean Corpuscular Volume 93.3 fL (81.0-99.0); Mean Platelet Volume 9.9 fL (7.4-10.4); Platelet Count 207 10^3/uL (130-400); Red Blood Cell Count 4.63 10^6/uL (4.20-5.40); Red Cell Dist. Width 12.2 % (11.5-14.5)
[2024-01-05 10:05] LABS: Blood Urea Nitrogen 18 mg/dl (7-17); Carbon Dioxide 30 mmol/L (22-30); Chloride 98 mmol/L (98-107); Estimated Creatinine Clearance 71 ml/min; Glucose 149 mg/dl (70-99); Potassium 4.3 mmol/L (3.5-5.1); Sodium 137 mmol/L (135-145); eGFR > 60.00
--- NOTE | 2024-01-05 10:51 | CM ---
Patient seen bedside, initial assessment completed. Patient resides in a two story home with her son, patient resides on the first floor, son on second floor, three steps to enter home. Patient has a walker and cane at home, history of [facility] in past,
denies SNF history. Patient currently on O2, not on home O2. Patient confirms PCP Chiquis Sweeney, pharmacy [facility], confirms prescription coverage through [employer]. Patient denies food, housing/utility, transportation insecurities at home.
Patient reports her daughter will provide transportation home. CM received consult fo home nebulizer, patient agreeable, fax sent to Amanda at [facility] [phone]. CM will continue to follow for discharge planning needs, per Hospitalist, likely
discharge tomorrow.
Plan; home with nebulizer from [facility], awaiting confirmation from [facility].
[2024-01-05] MEDS: DECADRON 4 MG IV ×2 (12:18→23:59)
--- NOTE | 2024-01-05 15:27 | W.PN.HOSP.TC ---
Today's Communication/Plan
-
continue IV steroids
wean off o2 as possible
possible discharge tomorrow
Assessment / Plan
Assessment / Plan
Acute Hypoxic Respiratory Insufficiency secondary to Acute COPD Exacerbation
-Continue supplemental oxygen
-Continue Decadron IV one more night
-Continue Xopenex/Ipratropium TID and PRN
-wean off o2 as possible
Leukocytosis -reactive
-Hold on antibiotics for now
-Procal neg, WBC trending down
Chronic Diastolic Heart Failure
-Echo Jun 2023: Stage I Diastolic Dysfunction, EF 55-60%. Mild to moderate aortic regurgitation
-Continue Farxiga and Lasix
-Monitor Is&Os and Daily Weights
Paroxysmal Atrial Fibrillation
-Continue Diltiazem and Metoprolol
-Continue Eliquis
Hyperlipidemia
-Continue atorvastatin
DVT proph: Eliquis
Code Status: Limited DNR - Do Not Intubate
Anticipated Discharge: Within 24 hours
Subjective/Interval History
-
Date of Service: January 05, 2024
remains on 1L o2 through NC
afebrile
no other acute issues
Objective Data
-
Labs:
Laboratory Results
01/05/24
09:00
WBC 11.0 H
Hgb 14.8
Hct 43.2
Plt Count 207
Sodium 137
Potassium 4.3
Chloride 98
Carbon Dioxide 30
BUN 18 H
Creatinine 0.5 L
Glucose 149 H
Calcium 10.0
Vital Signs:
Vital Signs
Temp Pulse Resp BP Pulse Ox
98.2 F 69 18 117/60 99
01/05/24 11:34 01/05/24 11:34 01/05/24 11:34 01/05/24 11:34 01/05/24 14:37
Review of Systems
-
Respiratory: Reports No Symptoms
Cardiac: Reports No Symptoms
Abdomen/GI: Reports No Symptoms
Physical Exam
-
General: No Apparent Distress and Comfortable
HEENT: Oxygen (1 L NC)
Respiratory: Rhonchi; Negative Wheezes
Cardiac: Regular Rhythm and S1/S2; Negative Murmur or Rub
GI: Soft, Nontender and Nondistended
Musculoskeletal: No Edema
Neuro: Awake, Alert, Oriented, No Motor Deficits and Nonfocal/Grossly Intact
Psych: Calm
--- NOTE | 2024-01-05 16:03 | RESPNOTE ---
Patient received on 2L NC. weaned to room air throughout shift. Ambulatory pulse ox done; pt required no o2 to maintain spo2 > 92%. Patient ambulated 250 ft with cane.
[2024-01-05] MEDS: XALATAN OPHTHALMIC SOLUTION 1 DROP OPHTH (21:13)
[2024-01-05] MEDS: FARXIGA 10 MG PO (21:13)
[2024-01-06 03:31] VITALS: BP 124/61
[2024-01-06 06:00] VITALS: BMI 33.0
[2024-01-06 07:00] VITALS: BP 141/60
[2024-01-06] MEDS: ATROVENT NEBULES 0.5 MG INH (07:54)
[2024-01-06] MEDS: XOPENEX 0.63 MG INHALANT SOLUTION INH (07:54)
[2024-01-06 08:00] LABS: Hematocrit 40.7 % (37.0-47.0); Hemoglobin 13.9 g/dL (12.0-16.0); Mean Corp Hgb Conc. 34.2 g/dL (33.0-37.0); Mean Corpuscular Hgb 31.5 pg (27.0-31.0); Mean Corpuscular Volume 92.3 fL (81.0-99.0); Mean Platelet Volume 10.3 fL (7.4-10.4); Platelet Count 232 10^3/uL (130-400); Red Blood Cell Count 4.41 10^6/uL (4.20-5.40); Red Cell Dist. Width 12.4 % (11.5-14.5); White Blood Cell Count 17.1 10^3/uL (4.8-10.8)
[2024-01-06 08:17] LABS: Blood Urea Nitrogen 32 mg/dl (7-17); Calcium 9.5 mg/dl (8.4-10.2); Carbon Dioxide 31 mmol/L (22-30); Chloride 101 mmol/L (98-107); Estimated Creatinine Clearance 71 ml/min; Glucose 133 mg/dl (70-99); Potassium 4.4 mmol/L (3.5-5.1); Sodium 138 mmol/L (135-145); eGFR > 60.00
--- NOTE | 2024-01-06 08:41 | W.PN.HOSP.TC ---
Today's Communication/Plan
-
d/c home
Assessment / Plan
Assessment / Plan
Acute Hypoxic Respiratory Insufficiency secondary to Acute COPD Exacerbation
-CXR clear. covid/flu/procal neg.
-weaned off of o2
-discharge on taper course of prednisone and azithromycin for COPD flare up
-nebulizer equipment to be arranged by
Leukocytosis -reactive
-Procal neg, wbc elevated again with steroids
-azithromycin course for copd flare up treatment
Chronic Diastolic Heart Failure
-Echo Jun 2023: Stage I Diastolic Dysfunction, EF 55-60%. Mild to moderate aortic regurgitation
-Continue Farxiga and Lasix
-Monitor Is&Os and Daily Weights
Paroxysmal Atrial Fibrillation
-Continue Diltiazem and Metoprolol
-Continue Eliquis
Hyperlipidemia
-Continue atorvastatin
DVT proph: Eliquis
Code Status: Limited DNR - Do Not Intubate
More than 30 minutes spent in discharge including
Final examination of the patient
Summarizing hospital stay
Instructions for continuing care to all relevant caregivers
Preparation of discharge records, prescriptions, and referral forms
Total time spent (in minutes): 38 mins
Anticipated Discharge: Today
Subjective/Interval History
-
Date of Service: January 06, 2024
resting comfortably in chair
no reported shortness breath/wheezing
off of o2
Objective Data
-
Labs:
Laboratory Results
01/06/24
07:29
WBC 17.1 H
Hgb 13.9
Hct 40.7
Plt Count 232
Sodium 138
Potassium 4.4
Chloride 101
Carbon Dioxide 31 H
BUN 32 H
Creatinine 0.5 L
Glucose 133 H
Calcium 9.5
Vital Signs:
Vital Signs
Temp Pulse Resp BP Pulse Ox
98.1 F 68 16 141/60 96
01/06/24 07:00 01/06/24 07:58 01/06/24 07:58 01/06/24 07:00 01/06/24 07:58
I&O
01/05/24 01/06/24 01/07/24
06:59 06:59 06:59
Intake Total 660 / 660
Balance 660 / 660
Review of Systems
-
Respiratory: Reports No Symptoms
Cardiac: Reports No Symptoms
Abdomen/GI: Reports No Symptoms
Physical Exam
-
General: Obese
HEENT: Negative Oxygen
Respiratory: Clear to Auscultation; Negative Wheezes
Cardiac: Regular Rhythm and S1/S2; Negative Murmur or Rub
GI: Soft, Nontender and Nondistended
Musculoskeletal: No Edema
Neuro: Awake, Alert, Oriented, No Motor Deficits and Nonfocal/Grossly Intact
Psych: Calm
[2024-01-06] MEDS: VITAMIN D3 (cholecalciferol) 50 MCG PO (09:27)
[2024-01-06] MEDS: LASIX 20 MG PO (09:27)
[2024-01-06] MEDS: TOPROL XL 25 MG PO (09:27)
[2024-01-06] MEDS: CARDIZEM CD 360 MG PO (09:27)
[2024-01-06] MEDS: LIPITOR 10 MG PO (09:27)
[2024-01-06] MEDS: VITAMIN B-12 1000 MCG PO (09:27)
[2024-01-06] MEDS: ELIQUIS 5 MG PO (09:27)
--- NOTE | 2024-01-06 10:42 | CM ---
Patient seen bedside, reports she is going home today. Patient confirms her daughter will provide transportation home. CM confirmed with Amanda from [facility] that nebulizer will be delivered today. IMM reviewed, signed, place din chart. CM will
continue to follow for all discharge planning needs.
Plan; home with nebulizer ([facility]).
--- NOTE | 2024-01-06 15:47 | W.DCSUMMARY ---
Discharge Summary
Discharge Data
Date of Admission: 01/04/24
Date of Discharge: 01/06/24
-
Pending Results: No
Hospital Course
Discharging Physician : Dr Jonathan Gatica
Disposition : Home
Primary care physician : Dr Chiquis Sweeney
Principal Discharge diagnosis :
Chronic obstructive pulmonary disease flareup
Acute hypoxic respiratory insufficiency
Reactive leukocytosis
Chronic Discharge diagnosis :
Chronic diastolic congestive heart failure
Paroxysmal atrial fibrillation
Hyperlipidemia
Osteoporosis
Hospital Course :
Patient is 78-year-old female with above-mentioned past medical history came to ER for having new onset of shortness of breath. Symptoms were rapid onset on day of ER visit and patient noted pulse oximetry in the low 70s. Patient used rescue
inhaler/albuterol without significant help. In ER examination suggestive of patient having COPD flareup and requiring oxygen through nasal cannula. Patient no history of heart failure although no signs suggestive of ongoing worsening heart failure
exacerbation. Chest x-ray was not showing any signs of active pneumonia. Patient started on steroids and nebulizer therapy. 48 hours patient had improvement in symptoms and was able to be weaned off of oxygen. Patient was discharged on tapering
course of steroid and azithromycin as part of COPD flareup treatment. Patient follows up with [facility] and was recommended to have follow-up with them postdischarge.
Important imaging findings :
None
Procedure findings :
None
Discharge Plan
-
Patient Disposition: Home (Routine Discharge)
Discharge Diagnosis/Procedures: COPD flare up, Hypoxic resp insufficiency
Condition: Fair
Diet: Regular
Activity: As tolerated
Driving Restrictions: No driving for 24 hours
Bathing Restrictions: OK to Shower
Referrals:
Chiquis Sweeney MD [Family Provider] - in one week
Prescriptions:
New
prednisone 10 mg Tablet
See Rx Instructions .ROUTE .COMPLEX Qty: 20 0RF
Rx Instructions:
Take By Mouth:
40 mg daily x2 days, 30 mg daily x2 days,
20 mg daily x2 days, 10 mg daily x2 days.
ipratropium-albuterol 0.5 mg-3 mg(2.5 mg base)/3 mL solution for nebulization
3 ml inhalation Q8H PRN (Reason: shortness of breath) Qty: 90 0RF
azithromycin 250 mg tablet
250 mg PO DAILY 5 Days Qty: 5 0RF
Continued
atorvastatin 10 mg Tablet
10 mg PO DAILY
alendronate 70 mg Tablet
70 mg PO MO@0800
cyanocobalamin (vitamin B-12) 1,000 mcg Tablet
1,000 mcg PO DAILY
therapeutic multivitamin Tablet
1 tab PO DAILY
tiotropium bromide [Spiriva with HandiHaler] 18 mcg Capsule, W/Inhalation Device
1 cap INHALATION R DAILY
cholecalciferol (vitamin D3) 50 mcg (2,000 unit) Tablet
50 mcg PO DAILY
Lumigan 0.01 % drops
1 drp BOTH EYES HS
Eliquis 5 mg Tablet
5 mg PO BID Qty: 60 0RF
diltiazem HCl 360 mg Capsule,Extended Release 24 Hr
360 mg PO DAILY
furosemide [Lasix] 20 mg Tablet
20 mg PO DAILY
dapagliflozin propanediol [Farxiga] 10 mg Tablet
10 mg PO QPM
metoprolol succinate 25 mg tablet extended release 24 hr
25 mg PO DAILY
Discharge Orders:
Discharge Patient (As Directed); Ordered 01/06/24
Ordered By: Jonathan Gatica
Discharge Date and Time
Discharge Date/Time: 01/06/24 11:35
Print Language: BELARUSIAN
== END 2024-01-06 11:35 | disposition home or self-care (01) | DRG 191 ==
LOC: 4 EAST ACU 15:50
PROVIDERS: Physician Assistant Medical; ADMITTING PHYSICIAN Internal Medicine; ATTENDING PHYSICIAN Hospitalist; EMERGENCY PHYSICIAN Emergency Medicine; FAMILY PHYSICIAN Family Medicine
DX: J44.1 Chronic obstructive pulmonary disease with (acute) exacerbation (principal); I50.32 Chronic diastolic (congestive) heart failure; R09.02 Hypoxemia; R06.89 Other abnormalities of breathing; R06.02 Shortness of breath; D72.828 Other elevated white blood cell count; I48.0 Paroxysmal atrial fibrillation; E78.5 Hyperlipidemia, unspecified; M81.0 Age-related osteoporosis without current pathological fracture; Z79.01 Long term (current) use of anticoagulants; Z79.899 Other long term (current) drug therapy
CPT/HCPCS: 71045; 80048; 83880; 84145; 84484; 85025; 85027; 85379; 87502; 87811; 93005; 94640; 94644; 94761; 96374; 97161; 97166; 99285

== ENCOUNTER → 2024-07-06 11:05 | Outpatient (REF) | payer MEDICARE, SELFPAY | LOC: HWRCS 11:05 | PROVIDERS: ATTENDING PHYSICIAN Internal Medicine Cardiovascular Disease; FAMILY PHYSICIAN Family Medicine | DX: I77.810 Thoracic aortic ectasia (principal); I35.1 Nonrheumatic aortic (valve) insufficiency | CPT/HCPCS: 93306 ==

== ENCOUNTER → 2024-11-13 13:04 | Outpatient (REF) | payer MEDICARE, SELFPAY | LOC: RAD 13:04 | PROVIDERS: ATTENDING PHYSICIAN Nuclear Medicine Nuclear Cardiology; FAMILY PHYSICIAN Family Medicine | DX: I71.20 Thoracic aortic aneurysm, without rupture, unspecified (principal) | CPT/HCPCS: 71275; Q9967 ==

== ENCOUNTER 2025-05-03 20:07 | Inpatient (IN) | payer MEDICARE, SELFPAY ==
[2025-05-03] VITALS (17 sets, daily range): BP systolic 84–129; BP diastolic 51–94; PULSE 2–130; BMI 30.2
[2025-05-03 13:38] LABS: Hematocrit 45.1 % (37.0-47.0); Hemoglobin 15.0 g/dL (12.0-16.0); Mean Corp Hgb Conc. 33.3 g/dL (33.0-37.0); Mean Corpuscular Volume 99.6 fL (81.0-99.0); Platelet Count 223 10^3/uL (130-400); Red Cell Dist. Width 13.3 % (11.5-14.5)
[2025-05-03 13:39] LABS: ALT (SGPT) 20 U/L (0-35); AST (SGOT) 26 U/L (14-36); Albumin 4.4 g/dl (3.5-5.0); Alkaline Phosphatase 90 U/L (38-126); Blood Urea Nitrogen 16 mg/dl (7-17); Calcium 10.3 mg/dl (8.4-10.2); Chloride 96 mmol/L (98-107); Glucose 145 mg/dl (70-99); Potassium 4.7 mmol/L (3.5-5.1); Sodium 140 mmol/L (135-145); Total Protein 7.0 g/dl (6.3-8.2); eGFR > 60.00
[2025-05-03 13:41] LABS: COVID-19 Antigen Negative (Negative)
[2025-05-03 13:47] LABS: Carbon Dioxide 35 mmol/L (22-30)
[2025-05-03 14:25] LABS: Absolute Neutrophils -Man Diff 21.0 10^3/uL (1.4-6.5); Platelets Checked Yes
[2025-05-03 14:26] LABS: Anisocytosis 1+; Normal RBC Morphology No; Polychromasia 1+; Stomatocytes 1+; Total Cells Counted 100
[2025-05-03] MEDS: NSS 500 IV ×2 (17:26→18:19)
[2025-05-03] MEDS: DUONEB 3 ML INH (17:26)
[2025-05-03] MEDS: ROCEPHIN 1000 MG IV (17:30)
[2025-05-03] MEDS: ZITHROMAX INFUSION 250 IV (17:31)
[2025-05-03 18:08] LABS: Venous Blood Gas B.E. 7.5 mmol/L (-4 to +4); Venous Blood Gas O2 Sat % 63.6 %
--- NOTE | 2025-05-03 18:25 | ED.GENMED ---
History of Present Illness
General
Chief Complaint: Breathing Problem
Time Seen by Provider: 05/03/25 16:27
History of Present Illness
History of Present Illness:
79-year-old female with history of COPD on 2 L of O2 at nighttime and CHF, A-fib on Eliquis presenting to the emergency department for shortness of breath and cough. Patient reports symptoms since last evening. Daughter at bedside does note some
possible sick contacts that have been going in and out of her house. Patient went to her doctors today who noted a low-grade temperature. Patient denies associated chest pain. She reports that she has had to use her oxygen throughout the day and
with any exertion. Denies any significant swelling to her lower extremities. Denies additional acute medical complaint
Past History
Past History
ED Past Medical History: Arrthythmia, CHF, COPD and Hypercholesterolemia
Social History
Tobacco: Former smoker
Phy Exam
Physical Exam
Physical Exam:
General: Well-appearing, no clinical signs of dehydration, nontoxic and in no acute distress
HEENT: protecting airway
Neck: appears supple
CV: A-fib, tachycardic, no evidence of cyanosis
Resp: Increased work of breathing, diminished air movement bilaterally
Abd: Soft and non-distended, no tenderness to palpation
Extremities: No deformities, no swelling
Neuro: alert, no focal neurologic deficit
: deferred
Rectal: deferred
Psych: Normal affect
Skin: Intact
Scores
Heart Failure Risk
Heart Failure Risk Score: Not Applicable
Sepsis
Sepsis Screening
Sepsis Assessment: Severe Sepsis
Sepsis Screening: Lactate >2mmol/L, Hypotension and Worsening O2 Saturation
Sepsis Screen
Sepsis Screen: Severe Sepsis
Date: 05/03/25
Time: 20:04
Course
Orders/Labs/Results
Orders:
Orders
05/03/25 12:35
Electrocardiogram (*1) Urgent
Reason for Study: Shortness of Breath
EKG- Treatment ONCE
05/03/25 13:13
COVID-19 Antigen Urgent
Source: Nasal Swab
Complete Blood Count/With Diff Urgent
Comprehensive Metabolic Panel Urgent
Lactic Acid Urgent
Manual Differential Urgent
NT-proBNP Urgent
Comment: ADD ON
Blood Culture Urgent
ARIC Source: Blood/Venous
Specimen Description:
Influenza A+B Rapid Molecular Urgent
ARIC Source: Nasal Swab
Specimen Description:
05/03/25 14:27
Add On- LAB Urgent
Tests Added?: BNP
05/03/25 16:45
Portable Chest Xray [CR Chest Portable - 1 View] Urgent
Comment:
Reason For Exam: fever, sob, incread o2 need
Reason Study Needs to be Portable: Unable to Transport
05/03/25 17:07
0.9% Sodium Chloride 500 ml [Nss] 500 ml IV BOLUS
Ipratropium/Albuterol Sulfate [Duoneb] 3 ml INH R NOW ONE
Bipap [RESP] Urgent
Patient to use own unit?: No
Inspiratory Pressure (cm H2O): 12
Expiratory Pressure (cm H2O): 5
05/03/25 17:21
Azithromycin 500 mg/250 ml [Zithromax Infusion] 500 mg in 250 ml IV NOW
CefTRIAXone [Rocephin] 1,000 mg IV NOW STA
05/03/25 18:00
Venous Blood Gas Urgent
%Oxygen/Room Air: 50
05/03/25 18:03
0.9% Sodium Chloride 500 ml [Nss] 500 ml IV BOLUS
05/03/25 19:38
Dexamethasone Sod Phosphate [Decadron] 10 mg IV NOW STA
Doxycycline Hyclate [Vibramycin] 100 mg 0.9% Sodium Chloride 250 ml [Nss] 250 ml IV NOW
Furosemide [Lasix] 20 mg IV NOW STA
05/03/25 19:43
CARDIOLOGY CONSULT Routine
Consulting Provider: Landon Scanlon
Was physician already notified: Yes
Reason for consult: hypoxic respp failure acute chf, copd poss pna with sepsis afib rvr
05/03/25 19:47
Admit/Transfer Patient As Directed
Co-Sign Provider:
Level of Care: Inpatient admission
Assign to:: ICU
Physician / Group: esther santana
Diagnosis: septic shock w/acute hypxocresp failure poss pna/caridigenic shock , afib r
Reason for Hospitalization: septic shock w/acute hypxocresp failure poss pna/caridigenic shock , afib r
Expected length of stay greater than two midnights?: Yes
ELOS- Estimated Length of Stay in days: 6
I certify the patient meets the requirements for IP care: Yes
Code Status As Directed
Resuscitation Status: Do not resuscitate
Reached after discussion with pt or family/Healthcare POA: Yes
Decision communicated with: Per patient with daughter Loli at bedside
05/03/25 19:48
DNR Bracelet Application ONCE
05/03/25 19:53
PRN Pain Medication Management As Directed
May give lesser potent ordered pain med per pt: Yes
preference::
Protocol:: Medication orders for pain may be administered in a
manner that supports deferring to patient preference
when the pt is:
- Requesting an ordered lesser potent pain medication.
Least to most potent pain medications are defined
as: acetaminophen < NSAID < tramadol < opioids
(morphine, oxycodone, hydromorphone).
- Requesting a lesser dose of the same medication IF
ORDERED.
- Requesting a less intrusive route of administration
if both routes are prescribed by the provider (PO <
IV).
05/03/25 19:59
CT Chest W/o Iv Contrast Urgent
Comment:
Reason For Exam: hypoxic resp failure /sepsis
05/03/25 20:00
NORepinephrine 4 MG/250 ML [Levophed] 4 mg in 250 ml IV PER PROTOCOL
Initial dose in mcg/min, then titrate:: 2
Titrate to keep:: MAP > 65 mmHg
Titrate by mcg/min:: 1-2 mcg/min
Frequency of titrations (minutes):: 5
Maximum dose in ICU in mcg/min:: 30
Maximum dose in IMU in mcg/min:: 8
Maximum dose in IVU in mcg/min:: 4
Begin to taper infusion when:: Remained at goal for 4hrs
Taper by mcg/min:: 1-2 mcg/min
Frequency of taper (minutes) if patient maintains goal:: 30
Taper to off?: Yes
If infusion off & no longer maintaining goal:: Contact Provider
05/03/25 20:03
Beverage Manager Consult Routine
Consulting Provider: Noe Selby
Was physician already notified: Yes
Reason for consult: septic shock
Abnormal Lab Results
05/03/25 05/03/25
13:13 18:00
WBC 23.4 H 10^3/uL
(4.8-10.8)
MCV 99.6 H fL
(81.0-99.0)
MCH 33.1 H pg
(27.0-31.0)
Abs Neuts (Manual) 21.0 H 10^3/uL
(1.4-6.5)
Segmented Neutrophils 79 H %
(42-75)
Band Neutrophils 11 H %
(0-3)
Lymphocytes (Manual) 3 L %
(20-51)
VBG pCO2 55 H mmHg
(35-48)
VBG HCO3 34.1 H mmol/L
(22-27)
Chloride 96 L mmol/L
(98-107)
Carbon Dioxide 35 H mmol/L
(22-30)
Glucose 145 H mg/dl
(70-99)
Lactic Acid 3.8 H mmol/L
(0.7-2.0)
Calcium 10.3 H mg/dl
(8.4-10.2)
Total Bilirubin 1.4 H mg/dl
(0.2-1.3)
05/03/25 13:13
05/03/25 13:13
Vital Signs
Initial and Last Documented VS:
Initial Vital Signs
Temp Pulse Resp BP Pulse Ox
98.8 F 68 16 125/80 96
05/03/25 12:31 05/03/25 12:31 05/03/25 12:31 05/03/25 12:31 05/03/25 12:31
Last Documented Vital Signs
Temp Pulse Resp BP Pulse Ox
98.8 F 126 21 84/56 95
05/03/25 12:31 05/03/25 19:30 05/03/25 19:30 05/03/25 19:30 05/03/25 19:30
MDM/Problems Addressed
MDM/Problems Addressed:
79-year-old female with history of CHF, COPD, A-fib on Eliquis presenting for shortness of breath and cough. Vital signs on arrival significant for hypoxia
On exam, patient is in moderate respiratory distress with increased work of breathing and hypoxia on 5 L of O2. Diminished air movement bilaterally. Patient's labs obtained prior to my assessment with significant elevation of WBC, with suspicion
for community-acquired pneumonia. Lactic acid is also 3.8. Currently afebrile. For patient's work of breathing, will start on BiPAP. Will also start DuoNebs with concern for concomitant COPD exacerbation. No signs of significant volume overload
with lower suspicion for CHF. Pending chest x-ray imaging.
18:30 - Chest x-ray without significant sign of pneumonia, however again clinical concern at this time is infectious, community-acquired pneumonia. Starting antibiotics. Also giving gentle fluids given known history of CHF and meeting sepsis
criteria, and now BP is dropping with concern for severe sepsis and possible septic shock. Holding full 30 cc/kg fluid bolus to avoid volume overloaded state. Without present concern for PE, given anticoagulation status. Plan for admission.
Overall improvement on BiPAP
*Pulse Oximetry
SaO2: 96
Nasal Cannula flow liters per minute: 3
Patient hypoxic: yes
*Critical Care Note
Total Time (30-74mins, 75-104mins- exclusive of procedures): 42
comment:
The high probability of a clinically significant, sudden or life threatening deterioration of the pulmonary system(s) required my full and direct attention, intervention and personal management. The aggregate critical care time was 42 minutes. This
time is in addition to time spent performing reported procedures but includes the following:
[x] Data Review and interpretation
[x] Patient assessment and monitoring of vital signs
[x] Documentation
[x] Medication orders and management
ED Attending Note
-
Portions of this chart may have been created with voice recognition software.� Occasional wrong word or��sound alike� substitutions may have occurred due to the inherent limitations of voice recognition software.
Discharge Plan
Departure
Patient Disposition: Admit
Date of Disposition: 05/03/25
Time of Disposition: 18:32
Presentation/result/management discussed w/ accepting MD/DO: Hospitalist
Patient with high blood pressure during this ER visit?: No
Condition: Critical
Discharge Problem:
Respiratory failure, Severe sepsis, COPD with exacerbation
Prescriptions:
No Action
atorvastatin 10 mg Tablet
10 mg PO DAILY
alendronate 70 mg Tablet
70 mg PO MO@0800
cyanocobalamin (vitamin B-12) 1,000 mcg Tablet
1,000 mcg PO DAILY
therapeutic multivitamin Tablet
1 tab PO DAILY
tiotropium bromide [Spiriva with HandiHaler] 18 mcg Capsule, W/Inhalation Device
1 cap INHALATION R DAILY
cholecalciferol (vitamin D3) 50 mcg (2,000 unit) Tablet
50 mcg PO DAILY
diltiazem HCl 360 mg Capsule,Extended Release 24 Hr
360 mg PO DAILY
furosemide [Lasix] 20 mg Tablet
20 mg PO DAILY
dapagliflozin propanediol [Farxiga] 10 mg Tablet
10 mg PO QPM
metoprolol succinate 25 mg tablet extended release 24 hr
25 mg PO DAILY
ipratropium-albuterol 0.5 mg-3 mg(2.5 mg base)/3 mL solution for nebulization
3 ml inhalation R BID
Eliquis 5 mg tablet
5 mg PO BID
Referrals:
Chiquis Sweeney MD [Family Provider, Family Practice]
Interventions
Interventions:
*Risk Screen - Suicide Last Done: 05/03/25 16:45
*General Assessment Last Done: 05/03/25 16:45
*Neglect/Abuse Screening Last Done: 05/03/25 16:45
*ED COVID-19 Vaccine History Last Done: 05/03/25 16:45
*ED Influenza Vaccine History Last Done: 05/03/25 16:45
ED- Cardiac Assessment Last Done: 05/03/25 16:45
ED- Pulmonary Assessment Last Done: 05/03/25 16:45
Discharge Date and Time
Print Language: SETSWANA
--- NOTE | 2025-05-03 18:43 | HPS.HSE ---
Addendum entered and electronically signed by Luis Enrique Baker MD 05/03/25 20:16:
This is an addendum to the H&P written by Sita Patricio on 05/03/2025. �Patient seen and examined independently with S[employer] PATTERN[employer]ER.
79-year-old female past medical history of HFpEF, paroxysmal atrial fibrillation, COPD on 2 L of oxygen at night and with activity, hyperlipidemia, known thoracic aortic aneurysm, osteoporosis, chronic ambulatory dysfunction, presenting with
shortness of breath since this morning. �Increased lower extremity edema. �Recently stopped taking Lasix due to frequent bathroom usage.
Hypoxemic to 88% on 3 to 4 L. �Temperature 100 at PCP office today.
Vital signs show hypoxemia and tachypnea up to 37. �Heart rate up to 120s.Blood pressure initially 125 and blood pressure dropped to 96/65.
Labs show leukocytosis of 23. �Lactic acid 3.8. �BNP 2000. �EKG shows A-fib with RVR up to 130.
VBG shows pH of 7.4, pCO2 55, pO2 of 35.
Chest x-ray showed chronic biapical pleural/parenchymal changes without suggestion of pneumonia.
Given 1 L of IV fluids for hypotension with improvement of blood pressure to 117/72 but now back down to 85 systolic. �She was started on BiPAP for respiratory distress.
Patient meets sepsis criteria, also acute hypoxemic respiratory failure secondary to possible underlying pneumonia versus cardiogenic shock. �Check blood cultures. �Also atrial fibrillation with RVR. �She received IV fluids due to hypotension. Start
Ceftriaxone/doxycycline. Check CT Chest/Abdomen Pelvis to look for source of potential infection. Check echocardiogram. Trend lactate. �Start Levophed. �Cardiology/non acoustic operator consulted. Dexamethasone for treating potential component of COPD
exacerbation and ipratropium nebs.�
Can consider amiodarone drip if heart rates become uncontrolled, she did develop vomiting from this previously. �Cardiology recommends permissive tachycardia for now.�
Original Note:
Family Physician
-
Family Physician: Chiquis Sweeney
Chief Complaint
-
Acute shortness of breath, tachypnea, hypoxia
History of Present Illness
79-year-old female from home where she lives with her daughter Loli and son-in-law who had abrupt onset of shortness of breath and tachypnea at 3 AM. Despite DuoNebs at home this did not improve. She went to her PCP at 1145 this morning where she
was noted to be hypoxic 88% on 3 to 4 L of nasal cannula with temp of 100 F. She was advised to come to the emergency room for evaluation. Patient has history of COPD on chronic 2 L at bedtime and with exertion. Her daughter states typically her
oxygen on this is 97%. On arrival in the ER she was also noted to be hypotensive with BP 97/65 and with heart rate 120 bpm rapid A-fib. Patient is on Cardizem and Eliquis for paroxysmal A-fib of which she took this morning. She has not taken her
Lasix in the past couple days. She has bilateral +3 lower leg edema with JVD. She denies current fever, chills, headache, chest pain, palpitations, cough, abdominal pain, nausea, vomiting, diarrhea, urinary symptoms.
She has past medical history COPD chronic 2 L nasal cannula at bedtime and with activity/ hypoxic respiratory insufficiency, Chronic diastolic heart failure, Paroxysmal A-fib, Thoracic aortic aneurysm, HLD, osteoporosis, chronic ambulatory
dysfunction uses rollator as needed.
Medical History
Past Medical History
Past Medical History: Reports Other
Additional Past Medical History:
COPD chronic 2 L nasal cannula at bedtime and with activity/ hypoxic respiratory insufficiency
Former smoker 35-year 1 pack a day quit 30 years ago
Chronic diastolic heart failure
Paroxysmal A-fib,
Thoracic aortic aneurysm
HLD
osteoporosis,
chronic ambulatory dysfunction uses rollator as needed.
Past Surgical History: Reports Other
Additional Past Surgical History:
[place] teeth extraction
Social History
Tobacco: Former Smoker (35 years 1 pack a day quit 30 years ago)
Alcohol: None
Drug: None
Personal: Single
Living: With Family
Employment: Retired
Family History
Family History: Not pertinent
Allergies / Home Medications
Allergies reflects when Allergies were last updated in [facility].
Home Medications with original date entered in [facility]
Allergy/Medication List:
Allergies
Allergy/AdvReac Type Severity Reaction Status Date / Time
No Known Allergies Allergy Verified 08/29/23 11:11
Home Medications
alendronate 70 mg tablet 70 mg PO MO@0800 osteoporosis 02/09/22
atorvastatin 10 mg tablet 10 mg PO DAILY High cholesterol 02/09/22
cholecalciferol (vitamin D3) 50 mcg (2,000 unit) tablet 50 mcg PO DAILY Supplement 02/09/22
cyanocobalamin (vitamin B-12) 1,000 mcg tablet 1,000 mcg PO DAILY Supplement 02/09/22
therapeutic multivitamin 1 tab PO DAILY Supplement 02/09/22
tiotropium bromide 18 mcg capsule with inhalation device (Spiriva with HandiHaler) 1 cap inhalation R DAILY Lung/breathing issues 02/09/22
dapagliflozin propanediol 10 mg tablet (Farxiga) 10 mg PO QPM heart failure 01/04/24
diltiazem HCl 360 mg capsule,24 hr,extended release 360 mg PO DAILY Heart Disease/BP 01/04/24
furosemide 20 mg tablet (Lasix) 20 mg PO DAILY Fluid Retention/Swelling 01/04/24
metoprolol succinate 25 mg tablet,extended release 24 hr 25 mg PO DAILY Heart Disease/BP 01/04/24
apixaban 5 mg tablet (Eliquis) 5 mg PO BID Blood Clot Prevention/Tx 05/03/25
ipratropium 0.5 mg-albuterol 3 mg (2.5 mg base)/3 mL nebulization soln 3 ml inhalation R BID 05/03/25
Review of Systems
-
History Source: Patient and Family (Daughter Loli at bedside)
A 12 point ROS was completed and negative except as noted: Yes
Constitutional: Reports Fever (100 F this a.m.) and Chills
EENT: Denies Sore Throat or Runny Nose
Respiratory: Reports Trouble Breathing (Tachypnea, shortness breath, dyspnea on exertion, hypoxia); Denies Cough
Cardiac: Denies Chest Pain, Diaphoresis or Palpitations
Abdomen/GI: Denies Abdominal Pain, Nausea, Vomiting, Diarrhea, Constipated or Bloody Stools
: Denies Dysuria, Frequency, Flank Pain, Incontinence, Difficulty Voiding or Urgency
Musculoskeletal: Reports Edema (+2 bilateral lower legs); Denies Joint Pain
Skin: Denies Itching or Rash
Neurological: Denies Dizzy, Headache or Weakness
Endocrine: Reports No Symptoms
Hematologic/Lymphatic: Reports No Symptoms
Psych: Reports Calm
Physical Exam
Vital Signs
Vital Signs
Temp Pulse Resp BP Pulse Ox
98.8 F 68 16 125/80 96
05/03/25 12:31 05/03/25 12:31 05/03/25 12:31 05/03/25 12:31 05/03/25 18:27
Physical Exam
General: Conversant and Other (Hypoxia); No Fever or Chills
HEENT: NormoCephalic, Anicteric, Moist mucous membranes, [place] Conjunctivae, No Ptosis and Oxygen (BiPAP 12/5 5 L)
Respiratory: Decreased Breath Sounds (Bilaterally throughout both lung field); No Wheezes
Cardiac: S1/S2, Irregular Rhythm (A-fib with RVR 120 bpm) and JVD
GI: Non Tender, Non Distended, Normal Bowel Sounds and No Hepatosplenomegaly
Rectal: Deferred by Provider
Genito-urinary: Deferred by me
Musculoskeletal: No Clubbing, No Cyanosis, Edema, Left Lower Extremity (+3 pitting) and Edema, Right Lower Extremity (+3 pitting); No Edema, Left Upper Extremity or Edema, Right Upper Extremity
Skin: Warm and Dry; No Rash
Neuro: AO x 3, No Motor Deficits, Nonfocal/grossly intact, Cranial Nerves Intact and No Sensory Deficits; No Slurred Speech, Facial Droop, Tremors or Sedated
Psych: Calm
Laboratory Results
-
05/03/25 13:13
05/03/25 13:13
Laboratory Results
Lactic Acid 3.8 mmol/L (0.7-2.0) H 05/03/25 13:13
Total Bilirubin 1.4 mg/dl (0.2-1.3) H 05/03/25 13:13
AST 26 U/L (14-36) 05/03/25 13:13
ALT 20 U/L (0-35) 05/03/25 13:13
Alkaline Phosphatase 90 U/L (38-126) 05/03/25 13:13
Data Reviewed
-
Diagnostic Radiology: Report Reviewed by me
Lab Data: Labs Reviewed by me
Impression/Plan
-
Impression/plan:
Admit to ICU
#Acute hypoxic respiratory failure secondary to Acute COPD exacerbation versus possible Pneumonia versus cardiogenic shock
#Septic shock likely secondary to possible pneumonia
#Chronic hypoxic respiratory failure on chronic 2 L nasal cannula at bedtime and with activity
Lactate 3.8 will trend
88% on 3 to 4 L nasal cannula currently 98% BiPAP 12/5 5 L
requiring BiPAP , WBC 23.4 with left shift, 11% bands
COVID/influenza negative
VBG pH 7.40, pCO2 55, O2 35, CO 34.1
-Blood cultures x 2
Patient given 1 L of IV NSS in ER will hold further fluids given possible CHF patient is normotensive
- IV Decadron 10 mg to be given now then 4 mg every 6 hours
- Continue Atrovent scheduled and as needed due to tachycardia
-Rocephin, Doxycycline IV
- IV Zithromax, IV Rocephin to cover possible pneumonia
- Per non acoustic operator CHeck CT chest /abdomen /pelvis for source of sepsis
- Consult non acoustic operator Dr. Selby aware
#Acute hypotension likely secondary to sepsis versus cardiogenic shock
BP 97/65 status post 1 L IV NSS 117/72
-Will hold further IV fluids due to suspected heart failure
-STart Levophed due to BP Sys 83
#Acute on chronic diastolic CHF
BNP 2089 increased from 4807December 2023
Patient on oral Lasix 20 mg daily
- Will give IV Lasix 20 mg when patient stable
-Hold Farxiga due to hypotension
-I/O, daily weights
-Consult [facility] cardiology Dr. Scanlon aware- allow permissive A-fib with RVR due to sepsis/hypotension
- Check 2D echo
CXR: Chronic biapical pleural-parenchymal changes no parenchymal opacification to suggest pneumonia
2D Jun 2023: Stage I Diastolic Dysfunction, EF 55-60%. Mild to moderate aortic regurgitation
#A-fib with RVR/Paroxysmal A-fib
Heart rate 120 bpm variable
- Continue diltiazem 360 mg daily with hold parameters
-Continue Eliquis 5 mg twice daily
- Patient follows with Dr. Winter from [facility] cardiology
- Per Dr. Scanlon-allow permissive A-fib with RVR due to sepsis/hypotension
#HLD
Continue atorvastatin 10 mg daily
#Known thoracic aortic aneurysm
#Osteoporosis
Continue alendronate 70 mg Mondays with vitamin D3 daily/MVI
DVT prophylaxis
Continue UNDERGROUND REPAIRER Eliquis
DNR per patient with daughter Loli at bedside
[2025-05-03] MEDS: DECADRON 10 MG IV (20:14)
[2025-05-03] MEDS: VIBRAMYCIN 260 MG IV (20:15)
[2025-05-03] MEDS: OFIRMEV 100 IV (21:55)
[2025-05-03] MEDS: ELIQUIS 5 MG PO (21:56)
[2025-05-03 22:08] LABS: Glucose - Point of Care 129 mg/dl (70-99)
--- NOTE | 2025-05-03 22:18 | PTCARENOTE ---
Patient received in room 3363 on BiPAP setting 12/5 & 6L. Patient is AAOx3 and able to make her needs known. MENA x4. Verbalizes some sob that's better than prior. Doesn't verbalize pain at this time. Plan of care for the shift reviewed with the
patient. Afib on the monitor with HR fluctuating btw 101-120s. Temp 100.3. WORKFORCE CONSULTANT in to assess the patient and made aware. Ofirmev ordered. All pulses are palpable. +3 edema to bilateral lower extremities. Legs elevated on pillow. SpO2 at 99% on the
BiPAP. Tachypneic with HR 23-25. Pt encouraged to take slow deep breaths. + BS. Abd is round. Fluid restrictions reviewed with the patient and her daughter. Scheduled medications administered. Call mao is within reach. Pt's daughter, Shad remains
at the bedside.
[2025-05-04] VITALS (24 sets, daily range): BP systolic 90–130; BP diastolic 55–104; PULSE 2–110; O2SAT 97; BMI 30.1
--- NOTE | 2025-05-04 01:21 | PTCARENOTE ---
Patient remains on BiPAP. Remains Afib on the monitor with HR in the 90s. Pt turns and repositions herself.
[2025-05-04] MEDS: DECADRON 4 MG IV ×4 (01:48→22:00)
--- NOTE | 2025-05-04 04:06 | PTCARENOTE ---
Patient reassessed. AAOx3. Continues on BiPAP. Pt's SpO2 decreased to 87% when oxygen tubing fell from BiPAP machine, and recovered to SpO2 of 99% once reattached. Afebrile. Labs drawn and sent.
[2025-05-04 04:23] LABS: INR 1.93; PT 22.2 Sec (11.4-14.6)
[2025-05-04 04:24] LABS: APTT 44.7 Sec (23.4-35.0)
[2025-05-04 04:35] LABS: Hematocrit 42.9 % (37.0-47.0); Hemoglobin 13.8 g/dL (12.0-16.0); Mean Corp Hgb Conc. 32.2 g/dL (33.0-37.0); Mean Corpuscular Volume 102.1 fL (81.0-99.0); Nucleated Red Blood Cells % 0 %; Platelet Count 190 10^3/uL (130-400); Red Cell Dist. Width 13.2 % (11.5-14.5)
[2025-05-04 04:47] LABS: ALT (SGPT) 19 U/L (0-35); AST (SGOT) 32 U/L (14-36); Albumin 3.6 g/dl (3.5-5.0); Alkaline Phosphatase 80 U/L (38-126); Blood Urea Nitrogen 16 mg/dl (7-17); Calcium 9.5 mg/dl (8.4-10.2); Carbon Dioxide 34 mmol/L (22-30); Chloride 102 mmol/L (98-107); Estimated Creatinine Clearance 70 ml/min; Glucose 133 mg/dl (70-99); Magnesium 2.2 mg/dl (1.6-2.3); Potassium 4.9 mmol/L (3.5-5.1); Sodium 139 mmol/L (135-145); Total Protein 6.3 g/dl (6.3-8.2); eGFR > 60.00
[2025-05-04] MEDS: ATROVENT NEBULES 0.5 MG INH ×3 (07:40→19:35)
--- NOTE | 2025-05-04 07:56 | W.PN.HOSP.TC ---
Today's Communication/Plan
-
stable for downgrade to IMU
wean O2 supplementation as tolerated
cont abx bronchodilators Steroids
Assessment / Plan
Assessment / Plan
Physical Exam
General: No acute distress, appears relatively comfortable at this time.
HEENT: NormoCephalic, Anicteric, Moist mucous membranes, [place] Conjunctivae
Respiratory: Clear to auscultation b/l stable respiratory status on nc supplementation
Cardiac: S1/S2, Irregular Rhythm
GI: Non Tender, Non Distended, Normal Bowel Sounds and No Hepatosplenomegaly
Musculoskeletal: No Clubbing, No Cyanosis, Pedal Edema +2 lower ext's b/l
Skin: Warm and Dry; No Rash
Neuro: AO x 3 conversant coherent
Psych: Calm
79F HFpEF COPD2L pAfib Aneurysm HLD osteoporosis here with suspected PNA and associate COPD and HF exacerbation.
#Acute hypoxic respiratory failure secondary to Acute COPD exacerbation versus possible Pneumonia versus Heart Failure Exacerbation
#Severe sepsis likely secondary to possible pneumonia (shock less likely, never required pressor support, bp improved w/ IVF bolus)
#Chronic hypoxic respiratory failure on chronic 2 L nasal cannula at bedtime and with activity
Lactate 3.8 trended down/resolved
procal elevated
weaned off bipap to NC supplementation
COVID/influenza negative
Follow Blood cultures
Continue Atrovent scheduled and as needed due to tachycardia
Rocephin, Doxycycline IV
CT chest /abdomen /pelvis w/o contrast results appreciated limited study no acute abn's noted
Admited to ICU however patient never required pressor support, with clinical improvement, stable for downgrade to IMU 05/04
IV Decadron tapered to 4 mg Q12
Pulm/Automation Qa Analyst eval appreciated
#Acute on chronic diastolic CHF
BNP 2089 increased from 488 December 2023
Patient on oral Lasix 20 mg daily
-cont IV lasix 20 mg daily w/ holding parameters SBP<100
-Farxiga on hold
-I/O, daily weights
-Cardio eval requested
-Check 2D echo Tuesday
#A-fib with RVR/Paroxysmal A-fib
Heart rate 120 bpm variable
- Continue diltiazem 360 mg daily with hold parameters
- Continue Eliquis 5 mg twice daily
- Patient follows with Dr. Winter from [facility] cardiology
#HLD
Continue atorvastatin 10 mg daily
#Known thoracic aortic aneurysm
#Osteoporosis
Continue alendronate 70 mg Mondays with vitamin D3 daily/MVI
DVT prophylaxis
Continue MODERATE NEEDS TEACHER Eliquis
DNR
Discussed with patient and patient's daughter Loli at bedside.
I spent a total of 55 minutes with the patient or on the floor. More than 50% of this time involved counseling and coordination of care.
Anticipated Discharge: 24 - 48 hours
Subjective/Interval History
-
Date of Service: May 04, 2025
Seen and examined at bedside in no acute distress sitting up comfortably in bed. Overall reports feeling well. Symptoms significantly improved including sob. Weaned off bipap to NC supplementation. Daughter Loli present during evaluation.
Objective Data
-
Labs:
Laboratory Results
05/04/25
04:03
WBC 15.8 H
Hgb 13.8
Hct 42.9
Plt Count 190
PT 22.2 H
INR 1.93
APTT 44.7 H
Sodium 139
Potassium 4.9
Chloride 102
Carbon Dioxide 34 H
BUN 16
Creatinine 0.6
Glucose 133 H
Calcium 9.5
Total Bilirubin 1.1
AST 32
ALT 19
Alkaline Phosphatase 80
Vital Signs:
Vital Signs
Temp Pulse Resp BP Pulse Ox
97.8 F 105 14 99/65 93
05/04/25 07:38 05/04/25 04:15 05/04/25 04:15 05/04/25 04:00 05/04/25 04:15
I&O
05/03/25 05/04/25 05/05/25
06:59 06:59 06:59
Intake Total 250 / 250
Balance 250 / 250
--- NOTE | 2025-05-04 08:01 | PTCARENOTE ---
- 0700 assumed care. patient in bed, on BIPAP, does not appear to be in distress. BIPAP 12/6/6L. Patient awake and alert x 3. Denies SOB. SpO2: 100%. Taking off BIPAP. Placed on 4L vian nasal canula.
-AAO x 3
-Afib 95 to 106 +2 ankle edema
-SpO2 100% on 4L via nasal canula +SOB at rest . Lungs diminished . No wheezing on auscultation
-Abdomen soft round Hyperactive Bowel sounds x 4 quadrants
-Urine draining jerald dark urine
-peripheral lines
-call mao within reach
--- NOTE | 2025-05-04 08:16 | CON.INTV ---
Consultation
Consultation Request
Date/Time Consultation Requested: 05/03/2025 - 2002
Date/Time Consultation Performed: 05/04/2025809
Requesting Provider: REMIGIO Dia
Performing Provider: Dr. Selby
Reason for Consultation: AECOPD
Medical History
-
Chief Complaint: SOB
History of Present Illness:
79-year-old female with a past medical history of COPD/centrilobular emphysema, chronic hypoxic respiratory failure on 2 L/min nasal cannula with sleep, AAA without rupture, A-fib and Eliquis, chronic HFpEF, restrictive lung disease, glaucoma,
tributary retinal vein occlusion, bilateral carotid artery disease, history of kidney stones and osteoarthritis who presents with worsening shortness of breath. Patient has oxygen at home and she was using 3 L/min prior to arrival. She is
prescribed Spiriva but does not feel that the medicine gets into her lungs and instead hit the top of her mouth, so she has been using DuoNebs twice daily and has been feeling generally well with this. On Tuesday morning at 3:00 AM, she woke up
feeling short of breath. Before that she was in her usual state of health. She took a nebulizer which helped her feel better but her shortness of breath then recurred and then she saw her primary doctor later that day and she was sent to the ER.
The patient's has a cold currently but he has been not living in the same apartment as Martita. The patient currently denies any urinary frequency, pain with urination, or lower abdominal/flank pain. In the ER she was afebrile to 98.8 �F,
pulse rate 68, respiratory rate 16, BP 125/80 and she was saturating 96% on 3 L/min nasal cannula. Initial labs showed leukocytosis to 23.4, 11% bands, serum bicarbonate level 35, lactate 3.8, T. bili 1.4, and blood cultures were collected with flu
swab negative and COVID-19 antigen also negative. Imaging via CXR showed chronic biapical pleural/parenchymal changes with no evidence of pneumonia. CT chest/abdomen/pelvis also showed no evidence of pneumonia, with distal colonic diverticulosis
and with no intra-abdominal pathology although gallbladder was borderline prominent in size but without focal intrinsic abnormality. She was given IVF in the ER with 500 cc bolus x 2 of NS 0.9%, ceftriaxone, Zithromax and DuoNebs. Given her
significant SOB, she was started on BiPAP 05/24 which was bled with 6 L/min. Due to her acute respiratory distress, she was admitted to the ICU for further care and centrifugal casting machine tender service consulted for additional management/recommendations.
When I saw the patient this morning, she was now off the BiPAP, feeling much better overall, with her daughter, Loli, present at bedside. Patient's current heart rate is 104, BP 111/80 and she is saturating 99% on 4 L/min nasal cannula. She
currently denies a significant cough, denies chest pain, CAMPBELL, nausea, fevers or chills.
PMHx: COPD, centrilobular emphysema, nocturnal hypoxia, A-fib on Eliquis, AAA without rupture, chronic HFpEF, chronic hypoxic respiratory failure, restrictive lung disease, glaucoma, tributary retinal vein occlusion, bilateral carotid artery
disease, osteoporosis, history of kidney stones, osteoarthritis, obesity
PSHx: [place] teeth, right eye surgery (February 2024), left eye surgery (March 2024)
Past Medical History
Past Medical History: Other (Above as per HPI)
Past Surgical History: Other (Above as per HPI)
Social History
Tobacco: Former Smoker (40-[id number] history, quit 25-30 years ago)
Alcohol: None
Drug: None
Living: With Family
Employment: Retired
Family History
Family History: Reviewed & Not Pertinent
Allergies / Home Medications
Allergies
Allergy/AdvReac Type Severity Reaction Status Date / Time
No Known Allergies Allergy Verified 08/29/23 11:11
Home Medications
�Medication �Instructions �Recorded �Confirmed �Last Taken �Type
alendronate 70 mg tablet 70 mg PO MO@0800 osteoporosis 02/09/22 05/03/25 04/29/25 History
atorvastatin 10 mg tablet 10 mg PO DAILY High cholesterol 02/09/22 05/03/25 05/03/25 History
cholecalciferol (vitamin D3) 50 50 mcg PO DAILY Supplement 02/09/22 05/03/25 05/02/25 History
mcg (2,000 unit) tablet
cyanocobalamin (vitamin B-12) 1,000 mcg PO DAILY Supplement 02/09/22 05/03/25 05/02/25 History
1,000 mcg tablet
therapeutic multivitamin 1 tab PO DAILY Supplement 02/09/22 05/03/25 05/03/25 History
tiotropium bromide 18 mcg capsule 1 cap inhalation R DAILY 02/09/22 05/03/25 05/03/25 History
with inhalation device (Spiriva Lung/breathing issues
with HandiHaler)
dapagliflozin propanediol 10 mg 10 mg PO QPM heart failure 01/04/24 05/03/25 05/03/25 History
tablet (Farxiga)
diltiazem HCl 360 mg capsule,24 360 mg PO DAILY Heart Disease/BP 01/04/24 05/03/25 05/03/25 History
hr,extended release
furosemide 20 mg tablet (Lasix) 20 mg PO DAILY Fluid 01/04/24 05/03/25 05/02/25 History
Retention/Swelling
metoprolol succinate 25 mg 25 mg PO DAILY Heart Disease/BP 01/04/24 05/03/25 05/03/25 History
tablet,extended release 24 hr
apixaban 5 mg tablet (Eliquis) 5 mg PO BID Blood Clot 05/03/25 05/03/25 05/03/25 History
Prevention/Tx
ipratropium 0.5 mg-albuterol 3 mg 3 ml inhalation R BID 05/03/25 05/03/25 05/03/25 History
(2.5 mg base)/3 mL nebulization Lung/Breathing Issues
soln
Review of Systems
-
History Source: Patient
All other systems: Negative unless noted
Vitals / Labs / Diagnostic Testing
Vital Signs
Temp Pulse Resp BP Pulse Ox
97.8 F 104 21 99/65 100
05/04/25 07:38 05/04/25 08:05 05/04/25 08:05 05/04/25 04:00 05/04/25 08:05
Lab Data
05/04/25 04:03
05/04/25 04:03
Laboratory Results
05/04/25
04:03
PT 22.2 H
INR 1.93
APTT 44.7 H
Microbiology
05/03/25 13:13 Nasal Swab Influenza Types A & B (SHAUNA) - Final
Negative for Influenza A & B, NAAT
Negative results must be combined with clinical observations
and patient history.
Nucleic Acid Amplification test (NAAT)performed on the
[employer] platform.
Diagnostic Testing:
Physical Exam
-
HEENT: Normocephalic and Anicteric
Cardiovascular: Irregular Rhythm (Irregularly irregular), Peripheral Edema (+2 lower extremity pedal edema) and Other (Tachycardic)
Respiratory: Wheeze (negative), Rhonchi (negative), Non-Labored Respirations and Other (Coarse breath sounds heard bilaterally)
GI: Soft, Non Distended, Non Tender and Normal Bowel Sounds
Neurology: Awake, Alert, Oriented and Tremors (negative)
Skin: Warm and Dry
General: Respiratory Distress (negative), Comfortable, Fever (negative) and Chills (negative)
Assessment
-
Assessment: 79-year-old female with a past medical history of COPD/centrilobular emphysema, chronic hypoxic respiratory failure on 2 L/min nasal cannula with sleep, AAA without rupture, A-fib and Eliquis, chronic HFpEF, restrictive lung disease,
glaucoma, tributary retinal vein occlusion, bilateral carotid artery disease, history of kidney stones and osteoarthritis who presents with worsening shortness of breath. Patient has oxygen at home and she was using 3 L/min prior to arrival. She
is prescribed Spiriva but does not feel that the medicine gets into her lungs and instead hit the top of her mouth, so she has been using DuoNebs twice daily and has been feeling generally well with this. On Tuesday morning at 3:00 AM, she woke up
feeling short of breath. Before that she was in her usual state of health. She took a nebulizer which helped her feel better but her shortness of breath then recurred and then she saw her primary doctor later that day and she was sent to the ER.
The patient's has a cold currently but he has been not living in the same apartment as Martita. The patient currently denies any urinary frequency, pain with urination, or lower abdominal/flank pain. In the ER she was afebrile to 98.8 �F,
pulse rate 68, respiratory rate 16, BP 125/80 and she was saturating 96% on 3 L/min nasal cannula. Initial labs showed leukocytosis to 23.4, 11% bands, serum bicarbonate level 35, lactate 3.8, T. bili 1.4, and blood cultures were collected with flu
swab negative and COVID-19 antigen also negative. Imaging via CXR showed chronic biapical pleural/parenchymal changes with no evidence of pneumonia. CT chest/abdomen/pelvis also showed no evidence of pneumonia, with distal colonic diverticulosis
and with no intra-abdominal pathology although gallbladder was borderline prominent in size but without focal intrinsic abnormality. She was given IVF in the ER with 500 cc bolus x 2 of NS 0.9%, ceftriaxone, Zithromax and DuoNebs. Given her
significant SOB, she was started on BiPAP 05/24 which was bled with 6 L/min. Due to her acute respiratory distress, she was admitted to the ICU for further care and centrifugal casting machine tender service consulted for additional management/recommendations.
Chronic conditions COMIC ARTIST: COPD, centrilobular emphysema, nocturnal hypoxia, A-fib on Eliquis, AAA without rupture, chronic HFpEF, chronic hypoxic respiratory failure, restrictive lung disease, glaucoma, tributary retinal vein occlusion, bilateral
carotid artery disease, osteoporosis, history of kidney stones, osteoarthritis, obesity
Impression:
#Acute hypoxic respiratory failure
#Acute COPD exacerbation
#Chronic hypercapnic respiratory failure
#Atrial fibrillation with RVR now rate controlled
#Leukocytosis with bandemia (11% via initial CBC on admission)
#Lactic acidosis � resolved as of 05/03/2025
#Hyperbilirubinemia � now resolved as of this morning
#Centrilobular emphysema
#Former tobacco smoker
#Chronic hypoxic respiratory failure on 2 L/min nasal cannula during sleep at home
#Bilateral carotid artery disease
#Osteoporosis
#History of kidney stones
Plan:
-Patient was admitted to the ICU with hypotension with concern for septic shock; vasopressors ordered but never started, and she is s/p 1 L IVF in the ER with NS 0.9%
- She is currently on empiric antibiotics with ceftriaxone + Zithromax, however there is no evidence of pneumonia on her CT chest
- Also no evidence of intra-abdominal infectious pathology
- Check urinalysis to rule out UTI
- If UA is negative for UTI, then will consider stopping ceftriaxone and continue with doxycycline to cover a URI
- In the setting of her bandemia, would continue with empiric antibiotics for now
- Given patient's A-fib and RVR, cardiology is consulted
- Goal HR <110
- Replete electrolytes with K>4, Mg>2
- Check echo (last echo in June 2024 showing preserved biventricular size and function with no significant valvular disease)
- Maintain MAP>65
- Continue with nebulized bronchodilators, currently on Atrovent; avoid beta agonist for now given her tachycardia
- Continue with systemic steroids, weaning as she clinically improves. Currently on Decadron 4 mg IV q6hr
- She is currently getting >2 mg/kg with an equivalent of 164 mg of prednisone. I will lower her down to 4 mg IV q12hr decadron now
- We discussed her use of nebulized bronchodilators, and considering that she gets shaky at home with use of albuterol and given that she is currently having atrial fibrillation with borderline increased heart rate, upon discharge we should start
her on levoalbuterol which will replace nebulized albuterol; if HR is controlled during this hospitalization, then can consider using the 1.25 mg nebulized albuterol as opposed to the 2.5 mg formulation
- prn nebulized bronchodilators - not currently bronchospastic
- Maintain SpO2 88-95%
- Maintain euglycemia with goal BG 140-180; check A1C
- Trend H/H and transfuse if needed to keep Hb>7g/dL; keep plt>20k, unless there is concern for bleeding then keep plt>50k
- Incentive spirometer encouraged 10x per hour for at least 4 hrs a day
- PT/OT
- DVT ppx: Eliquis
Code status: DNR/DNI
Patient follows with me in the pulmonary office, with last visit with me on 08/08/2024. She last saw the DOPER OPERATOR, Nickie Hankins on 01/02/2025. I will assure there is outpatient office follow-up after discharge, and given that she is currently admitted
for a COPD exacerbation, I will try to repeat a PFT and also discuss enrolling into pulmonary rehab. Also will discuss obtaining a sleep study as an outpatient.
Patient is stable for downgrade out of ICU to IMU. Pulmonary service will continue to follow along.
Total time spent today was 62 minutes for this encounter. Time includes reviewing laboratory test/imaging results, reviewing pertinent medical records, obtaining and reviewing medical history, performing an appropriate exam, ordering medications,
tests and procedures. Time also includes documentation of this encounter, coordinating patient care and communicating with other healthcare professionals. Total time does not include separately billed tests performed on this date of service.
[2025-05-04] MEDS: VIBRAMYCIN 260 MG IV ×2 (08:29→20:18)
[2025-05-04] MEDS: THERAGRAN 1 TABLET PO (08:35)
[2025-05-04] MEDS: LIPITOR 10 MG PO (08:35)
[2025-05-04] MEDS: ELIQUIS 5 MG PO ×2 (08:35→20:18)
--- NOTE | 2025-05-04 11:29 | PTOTSP ---
Speech Therapy Evaluation
Pt seen for bedside swallow assessment. Increased risk of aspiration given history of CHF and COPD compounded by acute hypoxemic respiratory failure. Pt accepted regular solids with adequate mastication, ap transfer, and clearance and no overt s/sx
of aspiration. With thin liquids, pt had audible swallow indicating possible discoordination and one instance of immediate cough response with thin liquids. Pt reported cough was due to gasping in air through the almost empty cup. SaO2 levels and RR
remained stable throughout trials. Pt denied SOB following PO trials. WBC elevated but trending down.
Recommend:�
1. IDDSI 7 regular solids and IDDSI 0 thin liquids
2. Medication as best tolerated
3. Standard aspiration precautions
4. FLORICULTURE TEACHER to s/o. Reconsult if concerned for aspiration or if concerning chest imaging/respiratory status
[2025-05-04 13:06] LABS: Urine Character Clear (Clear)
[2025-05-04 13:35] LABS: Urine White Cell 30-40 /HPF (0-5)
[2025-05-04 14:46] LABS: B.E. 4.7 mmol/L; HCO3 31.4 mmol/L (21-28); O2 Saturation % 98.5 % (94-98); PCO2 53 mmHg (32-35); PO2 83 mmHg (83-108)
--- NOTE | 2025-05-04 15:41 | CON.CAR ---
Consultation
Consultation Request
Date/Time Consultation Requested: 05/04/25
Date/Time Consultation Performed: 05/04/25
Requesting Provider: Dr. Wilkinson
Performing Provider: Dr. Garcia
Reason for Consultation: Shortness of breath, Concern for heart failure. Rapid atrial fibrillation
Medical History
-
Chief Complaint: Shortness of breath
History of Present Illness:
I had the pleasure to meet Martita Duff in ICU 3363 alongside her daughter. Martita had previously transferred care to my colleague Dr. Mayers in September of this year, last seen in February. Martita is an 79-year-old female with a history of
COPD/emphysema/restrictive lung disease with chronic hypoxic respiratory failure using 2 L nasal cannula at night and being evaluated for sleep apnea/CPAP with her education and training manager. She has a former [id number] tobacco history but quit 25 or 30 years
ago. She also has a history of mild thoracic aortic dilatation by CT scan in October 2024, 4.2 cm at the root, hypertension, hyperlipidemia,, chronic diastolic heart failure on Lasix 20 mg daily, bilateral carotid artery disease, tributary retinal vein
occlusion, glaucoma, remote history of kidney stones, osteoarthritis, gait dysfunction, and osteoporosis. She also has a history of atrial fibrillation which is now chronic on Eliquis anticoagulation. There have been outpatient discussions on
control strategy and she has opted for rate control strategy. She has previously been intolerant to amiodarone and has had difficulty uptitrating AV maryse blocking agents due to hypotension. She has no history of stroke/TIA. She has no history of
bleeding or recent falls. She has been in her usual state of health over the last few days but does admit to salt indiscretion the evening prior to her admission. She woke up Tuesday morning around 3 AM short of breath which did not improve with
her nebulizer. She lives in the downstairs apartment with one of her sons with her daughter living on the top floors. When her daughter assessed her prior to leaving for work she noted that she was still short of breath with increased work of
breathing prompting ER evaluation. She denies chest pain or pressure, palpitations/tachycardia, abdominal pain, dizziness, or fevers. She has chronic lower extremity edema which they feel has been stable. She reports no URI symptoms. She has
been compliant with her medical therapy including Lasix and anticoagulation.
.
In the ER she was afebrile to 98.8 �F, pulse rate 68, respiratory rate 16, BP 125/80 and she was saturating 96% on 3 L/min nasal cannula. Initial labs showed leukocytosis to 23.4, 11% bands, serum bicarbonate level 35, lactate 3.8, T. bili 1.4, and
Procalcitonin 0.34.proBNP 2090. Blood cultures pending. COVID and influenza negative. EKG atrial fibrillation with heart rates [address]-T wave abnormality. Imaging via CXR showed chronic biapical pleural/parenchymal changes with
no evidence of pneumonia. CT chest/abdomen/pelvis also showed no evidence of pneumonia, with distal colonic diverticulosis and with no intra-abdominal pathology although gallbladder was borderline prominent in size but without focal intrinsic
abnormality. She was given IVF in the ER with 500 cc bolus x 2 of NS 0.9%, ceftriaxone, Zithromax and DuoNebs. Given her significant SOB, she was started on BiPAP and admitted to the ICU. Currently she is feeling much better on 4 L nasal cannula
satting 99%. Shortness of breath is improved at rest and she denies cough. She continues to deny chest pain or pressure.
Past medical history: Persistent atrial fibrillation, Eliquis anticoagulation, COPD/emphysema and restrictive lung disease, nocturnal hypoxemia, mildly dilated aortic root, chronic heart failure with preserved ejection fraction, glaucoma, bilateral
carotid artery disease, osteoporosis, osteoarthritis, history of retinal vein occlusion, glaucoma, prior tobacco dependence.
Past Medical History
Past Medical History: Other (see HPI)
Past Surgical History: Other (see HPI)
Social History
Tobacco: Former Smoker
Alcohol: None
Drug: None
Living: With Family
Employment: Retired
Family History
Family History: Reviewed & Not Pertinent
Allergies / Home Medications
Allergy/AdvReac Type Severity Reaction Status Date / Time
No Known Allergies Allergy Verified 08/29/23 11:11
�Medication �Instructions �Recorded �Confirmed �Type
alendronate 70 mg tablet 70 mg PO MO@0800 osteoporosis 02/09/22 05/03/25 History
atorvastatin 10 mg tablet 10 mg PO DAILY High cholesterol 02/09/22 05/03/25 History
cholecalciferol (vitamin D3) 50 50 mcg PO DAILY Supplement 02/09/22 05/03/25 History
mcg (2,000 unit) tablet
cyanocobalamin (vitamin B-12) 1,000 mcg PO DAILY Supplement 02/09/22 05/03/25 History
1,000 mcg tablet
therapeutic multivitamin 1 tab PO DAILY Supplement 02/09/22 05/03/25 History
tiotropium bromide 18 mcg capsule 1 cap inhalation R DAILY 02/09/22 05/03/25 History
with inhalation device (Spiriva Lung/breathing issues
with HandiHaler)
dapagliflozin propanediol 10 mg 10 mg PO QPM heart failure 01/04/24 05/03/25 History
tablet (Farxiga)
diltiazem HCl 360 mg capsule,24 360 mg PO DAILY Heart Disease/BP 01/04/24 05/03/25 History
hr,extended release
furosemide 20 mg tablet (Lasix) 20 mg PO DAILY Fluid 01/04/24 05/03/25 History
Retention/Swelling
metoprolol succinate 25 mg 25 mg PO DAILY Heart Disease/BP 01/04/24 05/03/25 History
tablet,extended release 24 hr
apixaban 5 mg tablet (Eliquis) 5 mg PO BID Blood Clot 05/03/25 05/03/25 History
Prevention/Tx
ipratropium 0.5 mg-albuterol 3 mg 3 ml inhalation R BID 05/03/25 05/03/25 History
(2.5 mg base)/3 mL nebulization Lung/Breathing Issues
soln
Review of Systems
-
History Source: Patient and Family
All other systems: Negative unless noted
Constitutional: No Symptoms
EENT: No Symptoms
Respiratory: Cough and Trouble Breathing
Cardiac: No Symptoms
Abdomen/GI: No Symptoms
: No Symptoms
Musculoskeletal: Muscle Stiffness and Edema
Skin: No Symptoms
Neurological: Weakness
Endocrine: No Symptoms
Hematologic/Lymphatic: No Symptoms
Physical Exam
Vital Signs
Temp Pulse Resp BP Pulse Ox
97.6 F 107 22 99/65 100
05/04/25 15:37 05/04/25 13:36 05/04/25 13:36 05/04/25 04:00 05/04/25 08:05
Lab Results
05/04/25 04:03
05/04/25 04:03
Jaq-N-Hcbbwdqrgbi Pept 2090 pg/ml 05/03/25 13:13
Physical Exam
General: Well Developed, Well Nourished, No Apparent Distress and Other (Sitting out of bed to chair on nasal cannula O2.)
HEENT: Normocephalic, Anicteric and Moist Mucous Membranes
Respiratory: Other (Bronchovesicular breath sounds with coarse rhonchi. No wheezes.)
Cardiac: S1/S2, Irregular Rhythm and Peripheral Edema (+1); Negative Murmur or Rub
GI: Soft, Non Tender, Non Distended and Normal Bowel Sounds
Skin: Warm
Neuro: AO x 3 and Nonfocal/Grossly Intact
Psych: Calm
Impression / Plan
-
Shag Truck Driver: Dr. Mayers
Impression:
Persistent atrial fibrillation currently in rapid ventricular response
Acute hypoxic respiratory failure, multifactorial
Acute on chronic heart failure with preserved ejection fraction
Acute COPD exacerbation
Concern for infection with Leukocytosis and elevated procalcitonin/ lactic acid
Chronic hypercapnic respiratory failure, chronic nocturnal hypoxemia on home O2
Eliquis anticoagulation
Bilateral carotid artery disease
Mild dilatation of aortic root
Osteoporosis
Osteoarthritis
-2D echocardiogram 07/06/2024: Normal biventricular size and systolic function with EF estimated 60 to 65%. No significant valve disease with mild AI and trace MR/TR. Estimated pulmonary artery pressure 25-30 mmHg. Sinus of Valsalva 3.7 cm,
proximal ascending aorta 4 cm. No pericardial effusion
-CT of the chest angio 11/13/2024: Mid ascending aorta 4 cm which is considered top normal and stable. Mild dilation of the aortic root: Sinus of Valsalva 4.2 cm. Left dominant coronary circulation with moderate to severe coronary artery
calcifications. No pulmonary embolism. No left atrial thrombus. No significant narrowing of the origins of the great vessels from the thoracic aorta. No significant dilatation of the aortic arch or descending thoracic aorta. No significant
dilatation of the upper abdominal aorta. Moderate to severe emphysema with mild to moderate by lateral apical pleural-parenchymal scarring. No lung mass. Moderate increase in thoracic kyphosis
-Carotid ultrasound 01/10/2019: Bilateral plaque but no significant ICA disease. She is scheduled as an outpatient for repeat carotid duplex
Plan:
Rapid atrial fibrillation with longstanding persistent atrial fibrillation
-Heart rates driven by hypoxic respiratory distress and possibly infection
-Heart rate currently better following IV Lasix and BiPAP
-Continue metoprolol succinate 25 mg once daily and will follow heart rate trends. She has previously not tolerated amiodarone. Blood pressures are soft so will not increase metoprolol at this time
-Continue Eliquis anticoagulation
Heart failure with preserved ejection fraction with mild acute exacerbation, proBNP 2089
-We discussed importance of low-salt diet as she admits to dietary salt indiscretion prior to this event
-Continue IV Lasix
-Suspect that she will need higher doses of Lasix at time of discharge, possibly Lasix 40 mg p.o. daily.
-Will have case management look into SGLT2 inhibitor
-2D echocardiogram planned on Tuesday
Coronary artery disease on CT imaging without chest pain.
-Consider outpatient ischemic evaluation
Mild aortic root and thoracic aortic enlargement�stable on CT imaging. No active issues.
Concern for infection with leukocytosis, elevated lactate and procalcitonin
-Influenza and COVID negative. Cultures pending.
-Empiric antibiotics per plumbing drafter
COPD/emphysema with chronic nocturnal hypoxemia, acute exacerbation
-Management per pulmonary/intensive care
From a cardiovascular perspective may be downgraded to IMU
Data Reviewed
-
EKG: Tracing Personally Visualized and interpreted
CT Scan: Report Reviewed by me
Ultrasound: Report Reviewed by me
Medical Tests (Nuc Med, Echo etc): Report Reviewed by me
Labs: Labs Reviewed by me
Old Records: Reviewed
[2025-05-04 15:49] LABS: Procalcitonin 0.34 ng/ml (0.0-0.25)
--- NOTE | 2025-05-04 16:12 | PTCARENOTE ---
patient OOB chair . Transfer with supervision for fall prevention. Rings call mao appropriately. On 2L via nasal canula with SpO2 96%; BP via Rt upper arm 112/84 MAP 94. SOB with exertions (per pt chronic );
--- NOTE | 2025-05-04 16:29 | CM ---
rehabilitation manager reviewed patient's chart and met with patient and patient lives in a multilevel home with her son on 1st floor and patient's daughter and son in law live on 2nd floor, patient is independent with adl's and patient uses a cane and walker
with ambulation, Patient has home oxygen as needed from [employer], [place] and a nebulizer.
PCP: Dr Chiquis Sweeney
Pharmacy: [facility] in [place].
[2025-05-04] MEDS: STERILE WATER FOR INJECTION 10 ML IV (17:21)
[2025-05-04] MEDS: ROCEPHIN 1000 MG IV (17:22)
--- NOTE | 2025-05-04 20:54 | PTCARENOTE ---
Patient received oob to chair and eating dinner. AAx3 and able to make her needs known. Plan of care for the shift reviewed with the patient. Patient assisted by her daughter, Loli to the bathroom with rollator walker. Weak but steady gait. Afib on
the monitor with HR fluctuating between 110-130s. Afebrile. SpO2 at 96% on 2L / O2 nc. Patient cleansed with CHG wipes. Pt placed back in bed. Purewick placed per pt's request. Scheduled medications administered. All needs are met at this time. Call
mao is within reach.
[2025-05-05] VITALS (15 sets, daily range): BP systolic 98–133; BP diastolic 66–106; BMI 30.5
[2025-05-05 04:24] LABS: Hematocrit 44.6 % (37.0-47.0); Hemoglobin 14.4 g/dL (12.0-16.0); Mean Corp Hgb Conc. 32.3 g/dL (33.0-37.0); Mean Corpuscular Volume 102.5 fL (81.0-99.0); Nucleated Red Blood Cells % 0 %; Platelet Count 208 10^3/uL (130-400); Red Cell Dist. Width 13.3 % (11.5-14.5)
[2025-05-05 04:43] LABS: ALT (SGPT) 22 U/L (0-35); AST (SGOT) 32 U/L (14-36); Albumin 3.7 g/dl (3.5-5.0); Alkaline Phosphatase 86 U/L (38-126); Blood Urea Nitrogen 20 mg/dl (7-17); Calcium 9.8 mg/dl (8.4-10.2); Carbon Dioxide 34 mmol/L (22-30); Chloride 104 mmol/L (98-107); Estimated Creatinine Clearance 70 ml/min; Glucose 139 mg/dl (70-99); Magnesium 2.2 mg/dl (1.6-2.3); Potassium 4.7 mmol/L (3.5-5.1); Sodium 139 mmol/L (135-145); Total Protein 6.5 g/dl (6.3-8.2); eGFR > 60.00
[2025-05-05] MEDS: ATROVENT NEBULES 0.5 MG INH ×3 (07:51→20:37)
[2025-05-05] MEDS: LIPITOR 10 MG PO (08:08)
[2025-05-05] MEDS: THERAGRAN 1 TABLET PO (08:08)
[2025-05-05] MEDS: VITAMIN B-12 1000 MCG PO (08:08)
[2025-05-05] MEDS: ELIQUIS 5 MG PO ×2 (08:08→19:34)
[2025-05-05] MEDS: TOPROL XL 25 MG PO ×2 (08:08→19:34)
[2025-05-05] MEDS: VITAMIN D3 (cholecalciferol) 50 MCG PO (08:08)
[2025-05-05] MEDS: VIBRAMYCIN 260 MG IV ×2 (08:09→19:35)
[2025-05-05] MEDS: LASIX 20 MG IV (08:09)
--- NOTE | 2025-05-05 08:19 | W.PN.HOSP.TC ---
Today's Communication/Plan
-
cont abx
Diuresis
wean O2 supplementation as tolerated
ECHO Tuesday
Rate control Midodrine as per Cardio
Assessment / Plan
Assessment / Plan
Physical Exam
General: No acute distress, appears relatively comfortable at this time.
HEENT: NormoCephalic, Anicteric, Moist mucous membranes, [place] Conjunctivae
Respiratory: Clear to auscultation b/l stable respiratory status on nc supplementation
Cardiac: S1/S2, Irregular Rhythm
GI: Non Tender, Non Distended, Normal Bowel Sounds and No Hepatosplenomegaly
Musculoskeletal: No Clubbing, No Cyanosis, Pedal Edema +2 lower ext's b/l
Skin: Warm and Dry; No Rash
Neuro: AO x 3 conversant coherent
Psych: Calm
79F HFpEF COPD2L pAfib Aneurysm HLD osteoporosis here with suspected PNA and associate COPD and HF exacerbation.
#Acute hypoxic respiratory failure secondary to Acute COPD exacerbation versus possible Pneumonia versus Heart Failure Exacerbation
#Severe sepsis likely secondary to possible pneumonia (shock less likely, never required pressor support, bp improved w/ IVF bolus)
#Chronic hypoxic respiratory failure on chronic 2 L nasal cannula at bedtime and with activity
Lactate 3.8 trended down/resolved
procal elevated
weaned off bipap to NC supplementation, wean as tolerated
COVID/influenza negative
Follow Blood culture NGTD
Continue Atrovent scheduled and as needed due to tachycardia
Rocephin, Doxycycline tentatively planned for 5 day course abx 05/04-05/08
CT chest /abdomen /pelvis w/o contrast results appreciated limited study no acute abn's noted
Admitted to ICU however patient never required pressor support, with clinical improvement, stable for downgrade to IMU 05/04
IV Decadron tapered to 4 mg Q12
Pulm/Blanking Press Operator eval appreciated
#Acute on chronic diastolic CHF
BNP 2089 increased from 488 December 2023
Patient on oral Lasix 20 mg daily
-cont IV lasix 20 mg daily w/ holding parameters SBP<100
-cont Farxiga
-I/O, daily weights
-Cardio eval appreciated
-Check 2D echo Tuesday
#A-fib with RVR/Paroxysmal A-fib
- [correction to prior documentation home Cardizem held on admission]
- Continue Eliquis 5 mg twice daily
- Patient follows with Dr. Winter from [facility] cardiology
- Cardio eval appreciated midodrine added to allow bp room for increased Metoprolol XL 25 mg BID (home Daily)
#HLD
Continue atorvastatin 10 mg daily
#Known thoracic aortic aneurysm
#Osteoporosis
Continue alendronate 70 mg Mondays with vitamin D3 daily/MVI
PT/OT eval appreciated Home Health
DVT prophylaxis
Continue DRILL OPERATOR Eliquis
DNR
Discussed with patient and patient's daughter Loli at bedside.
I spent a total of 45 minutes with the patient or on the floor. More than 50% of this time involved counseling and coordination of care.
Anticipated Discharge: 24 - 48 hours
Subjective/Interval History
-
Date of Service: May 05, 2025
No acute distress, sitting up comfortably in bed. Overall reports feeling well. Remains on nasal cannula supplementation thought low dose. Daughter Loli present during evaluation.
Objective Data
-
Labs:
Laboratory Results
05/05/25
04:06
WBC 12.3 H
Hgb 14.4
Hct 44.6
Plt Count 208
Sodium 139
Potassium 4.7
Chloride 104
Carbon Dioxide 34 H
BUN 20 H
Creatinine 0.5 L
Glucose 139 H
Calcium 9.8
Total Bilirubin 0.6
AST 32
ALT 22
Alkaline Phosphatase 86
Vital Signs:
Vital Signs
Temp Pulse Resp BP Pulse Ox
97.9 F 110 22 133/92 99
05/04/25 20:25 05/05/25 08:08 05/05/25 07:54 05/05/25 08:08 05/05/25 07:54
I&O
05/04/25 05/05/25 05/06/25
06:59 06:59 06:59
Intake Total 250 / 250 900 / 900
Output Total 1700 / 1700
Balance 250 / 250 -800 / -800
--- NOTE | 2025-05-05 09:25 | PTCARENOTE ---
Received pt awake and alert.Speech is appropriate.+MENA.Denies pain.c/o fatigue.Pt states she did not sleep well last night.AFib noted.POX 95% 2l NC.+ HERNÁNDEZ,Pursed lip breathing and orthopnea noted.Appetite good.Voiding via external catheter.Pt's
daughter at bedside.Plan of care discussed.
[2025-05-05 10:02] LABS: Glycohemoglobin (HgbA1c) 5.6 % (4.0-5.9)
--- NOTE | 2025-05-05 11:16 | W.PN.CARDCBS ---
Today's Communication / Plan
-
Rate control atrial fibrillation with blood pressure support
Patient and family are considering attempt of rhythm control with DC cardioversion offered next week once pulmonary status has improved.
Continue uninterrupted Eliquis anticoagulation
IV diuresis
Echocardiogram planned Tuesday
Impression / Plan
-
Apprentice: Dr. Mayers
Impression:
Persistent atrial fibrillation currently in rapid ventricular response
Acute hypoxic respiratory failure, multifactorial
Acute on chronic heart failure with preserved ejection fraction
Acute COPD exacerbation
Concern for infection with Leukocytosis and elevated procalcitonin/ lactic acid
Chronic hypercapnic respiratory failure, chronic nocturnal hypoxemia on home O2
Eliquis anticoagulation
Bilateral carotid artery disease
Mild dilatation of aortic root
Osteoporosis
Osteoarthritis
-2D echocardiogram 07/06/2024: Normal biventricular size and systolic function with EF estimated 60 to 65%. No significant valve disease with mild AI and trace MR/TR. Estimated pulmonary artery pressure 25-30 mmHg. Sinus of Valsalva 3.7 cm,
proximal ascending aorta 4 cm. No pericardial effusion
-CT of the chest angio 11/13/2024: Mid ascending aorta 4 cm which is considered top normal and stable. Mild dilation of the aortic root: Sinus of Valsalva 4.2 cm. Left dominant coronary circulation with moderate to severe coronary artery
calcifications. No pulmonary embolism. No left atrial thrombus. No significant narrowing of the origins of the great vessels from the thoracic aorta. No significant dilatation of the aortic arch or descending thoracic aorta. No significant
dilatation of the upper abdominal aorta. Moderate to severe emphysema with mild to moderate by lateral apical pleural-parenchymal scarring. No lung mass. Moderate increase in thoracic kyphosis
-Carotid ultrasound 01/10/2019: Bilateral plaque but no significant ICA disease. She is scheduled as an outpatient for repeat carotid duplex
Plan:
Rapid atrial fibrillation with longstanding persistent atrial fibrillation
-Heart rates driven by hypoxic respiratory distress and possibly infection
-Blood pressures soft precluding increased dose of metoprolol succinate.
-Will start midodrine 2.5 mg 3 times daily with hold parameters and increase metoprolol succinate to 25 mg twice daily with hold parameters
-She has previously not tolerated amiodarone.
-We discussed rate versus rhythm control strategy. She has previously opted for rate control strategy however given difficult to control heart rates which is likely contributing to her shortness of breath we discussed possibility of rhythm control.
I reviewed option of DC cardioversion next week once pulmonary status has improved; she will consider. Long-term would likely benefit from ablation if she is agreeable to procedures.
-Continue Eliquis anticoagulation. She has had no interruption of Eliquis anticoagulation > 1 month
Heart failure with preserved ejection fraction with mild acute exacerbation, proBNP 2089
-We discussed importance of low-salt diet as she admits to dietary salt indiscretion prior to this event
-Continue IV Lasix
-Suspect that she will need higher doses of Lasix at time of discharge, possibly Lasix 40 mg p.o. daily.
-Continue Farxiga 10 mg daily
-2D echocardiogram planned on Tuesday
Coronary artery disease on CT imaging without chest pain.
-Consider outpatient ischemic evaluation; Discussed with patient and daughter. For now continue medical therapy.
Mild aortic root and thoracic aortic enlargement�stable on CT imaging. No active issues.
Concern for infection with leukocytosis, elevated lactate and procalcitonin
-Influenza and COVID negative. Cultures so far no growth to date
-Empiric antibiotics per floor worker
COPD/emphysema with chronic nocturnal hypoxemia, acute exacerbation
-Management per pulmonary/intensive care
From a cardiovascular perspective may be downgraded to IMU
Progress Note - Apprentice
Subjective
Date of Service: May 05, 2025
Seen and examined. Patient had a rough night but denies chest pain or pressure. On nasal cannula O2 and did not require BiPAP overnight. Heart rates have been elevated but she denies tachycardia.
Objective
Labs:
05/05/25 04:06
05/05/25 04:06
Labs
Hgb 14.4 g/dL (12.0-16.0) 05/05/25 04:06
Hct 44.6 % (37.0-47.0) 05/05/25 04:06
Plt Count 208 10^3/uL (130-400) 05/05/25 04:06
PT 22.2 Sec (11.4-14.6) H 05/04/25 04:03
INR 1.93 05/04/25 04:03
APTT 44.7 Sec (23.4-35.0) H 05/04/25 04:03
Sodium 139 mmol/L (135-145) 05/05/25 04:06
Potassium 4.7 mmol/L (3.5-5.1) 05/05/25 04:06
BUN 20 mg/dl (7-17) H 05/05/25 04:06
Creatinine 0.5 mg/dL (0.6-1.0) L 05/05/25 04:06
Glucose 139 mg/dl (70-99) H 05/05/25 04:06
Vital Signs and I&O:
Vital Signs
Temp Pulse Resp BP Pulse Ox
97.9 F 128 29 133/92 94
05/04/25 20:25 05/05/25 09:30 05/05/25 09:30 05/05/25 08:08 05/05/25 09:30
Vital Signs
Temp Pulse Resp BP Pulse Ox
97.9 F 128 29 133/92 94
05/04/25 20:25 05/05/25 09:30 05/05/25 09:30 05/05/25 08:08 05/05/25 09:30
Intake & Output
05/03/25 05/04/25 05/05/25 05/06/25
06:59 06:59 06:59 06:59
Intake Total 250 / 250 900 / 900 240 / 240
Output Total 1700 / 1700 700 / 700
Balance 250 / 250 -800 / -800 -460 / -460
Physical Exam
Physical Exam
General: 79-year-old female with nasal cannula O2. Awake alert and oriented x 3.
Heart: Irregularly irregular. Positive S1-S2. No murmur. No rub
Lungs: Increased thoracic kyphosis. Decreased breath sounds throughout without wheezes. Fine crackles right base.
Abd: Positive BS, NT/ND, neg rebound/rigidity/guarding
Ext: Trace lower extremity edema.
Neuro: nonfocal
[2025-05-05] MEDS: DECADRON 4 MG IV ×2 (11:19→21:55)
--- NOTE | 2025-05-05 11:40 | W.PN.PUL3 ---
Today's Communication / Plan
-
Heart rate control with goal <110; continue beta-teddy (started per cardiology)
K>4, Mg>2
MAP>65
Diuresis with Lasix
Discharge home on nebulized levalbuterol to be used with ipratropium
Home O2 assessment prior to discharge
Check echo
May need cardioversion prior to discharge (deferred final decision to cardiology)
Encourage incentive spirometer
Pulmonary service will continue to follow along
Assessment
-
Assessment: 79-year-old female with a past medical history of COPD/centrilobular emphysema, chronic hypoxic respiratory failure on 2 L/min nasal cannula with sleep, AAA without rupture, A-fib and Eliquis, chronic HFpEF, restrictive lung disease,
glaucoma, tributary retinal vein occlusion, bilateral carotid artery disease, history of kidney stones and osteoarthritis who presents with worsening shortness of breath. Patient has oxygen at home and she was using 3 L/min prior to arrival. She
is prescribed Spiriva but does not feel that the medicine gets into her lungs and instead hit the top of her mouth, so she has been using DuoNebs twice daily and has been feeling generally well with this. On Tuesday morning at 3:00 AM, she woke up
feeling short of breath. Before that she was in her usual state of health. She took a nebulizer which helped her feel better but her shortness of breath then recurred and then she saw her primary doctor later that day and she was sent to the ER.
The patient's has a cold currently but he has been not living in the same apartment as Martita. The patient currently denies any urinary frequency, pain with urination, or lower abdominal/flank pain. In the ER she was afebrile to 98.8 �F,
pulse rate 68, respiratory rate 16, BP 125/80 and she was saturating 96% on 3 L/min nasal cannula. Initial labs showed leukocytosis to 23.4, 11% bands, serum bicarbonate level 35, lactate 3.8, T. bili 1.4, and blood cultures were collected with flu
swab negative and COVID-19 antigen also negative. Imaging via CXR showed chronic biapical pleural/parenchymal changes with no evidence of pneumonia. CT chest/abdomen/pelvis also showed no evidence of pneumonia, with distal colonic diverticulosis
and with no intra-abdominal pathology although gallbladder was borderline prominent in size but without focal intrinsic abnormality. She was given IVF in the ER with 500 cc bolus x 2 of NS 0.9%, ceftriaxone, Zithromax and DuoNebs. Given her
significant SOB, she was started on BiPAP 05/24 which was bled with 6 L/min. Due to her acute respiratory distress, she was admitted to the ICU for further care and commercial artist service consulted for additional management/recommendations.
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
carotid artery disease, osteoporosis, history of kidney stones, osteoarthritis, obesity
Impression:
#Acute hypoxic respiratory failure
#Acute COPD exacerbation
#Chronic hypercapnic respiratory failure
#Atrial fibrillation with RVR
#Leukocytosis with bandemia (11% via initial CBC on admission)
#Lactic acidosis � resolved as of 05/03/2025
#Hyperbilirubinemia � now resolved
#Centrilobular emphysema
#Former tobacco smoker
#Chronic hypoxic respiratory failure on 2 L/min nasal cannula during sleep at home
#Bilateral carotid artery disease
#Osteoporosis
#History of kidney stones
Plan:
- Patient was admitted to the ICU with hypotension with concern for septic shock; vasopressors ordered but never started, and she is s/p 1 L IVF in the ER with NS 0.9%
- She remains on empiric antibiotics with ceftriaxone + Zithromax, however there is no evidence of pneumonia on her CT chest
- Also no evidence of intra-abdominal infectious pathology
- Urinalysis is abnormal and suggestive of UTI, although she does not have any symptoms
- In the setting of her bandemia, would continue with empiric antibiotics for now
- Given patient's A-fib and RVR, cardiology is consulted
- Goal HR <110
- Replete electrolytes with K>4, Mg>2
- Check echo (last echo in June 2024 showing preserved biventricular size and function with no significant valvular disease)
- Maintain MAP>65
- Continue Eliquis
- Patient may end up needing cardioversion - defer decision to cardiology
- Patient started on diuresis today per hospitalist � continues to diurese as BP tolerates while trending serum Na, serum Cr and serum HCO3; strict I/O; daily weight
- Continue with nebulized bronchodilators, currently on Atrovent; avoid beta agonist for now given her tachycardia
- Continue with systemic steroids, weaning as she clinically improves. Weaned down from Decadron 4 mg IV q6hr to 4mg IV q12hr - -> continue to wean as she clinically improves; hopefully she can start PO prednisone in next 24-48 hrs
- Dr. Selby discussed with the pt and her daughter her use of nebulized bronchodilators, and considering that she gets shaky at home with use of albuterol and that she is currently having atrial fibrillation with increased heart rate, upon
discharge we should start her on levoalbuterol which will replace nebulized albuterol; if HR is controlled during this hospitalization, then can consider using the 1.25 mg nebulized albuterol as opposed to the 2.5 mg formulation
- prn nebulized bronchodilators - not currently bronchospastic
- Maintain SpO2 88-95%, wean down on supplemental O2 as tolerated; check an ambulatory pulse oximetry prior to discharge
- Maintain euglycemia with goal BG 140-180; A1C: 5.6 on 05/05/2025
- Trend H/H and transfuse if needed to keep Hb>7g/dL; keep plt>20k, unless there is concern for bleeding then keep plt>50k
- Incentive spirometer encouraged 10x per hour for at least 4 hrs a day
- PT/OT
- DVT ppx: Eliquis
Code status: DNR/DNI
Patient follows with me in the pulmonary office, with last visit with me on 08/08/2024. She last saw the CHECK WRITER SALESPERSON, Nickie Hankins on 01/02/2025. I will assure there is outpatient office follow-up after discharge, and given that she is currently admitted
for a COPD exacerbation, I will try to repeat a PFT and also discuss enrolling into pulmonary rehab. Also will discuss obtaining a sleep study as an outpatient.
Pulmonary service will continue to follow along.
Total time spent today was 37 minutes for this encounter. Time includes reviewing laboratory test/imaging results, reviewing pertinent medical records, obtaining and reviewing medical history, performing an appropriate exam, ordering medications,
tests and procedures. Time also includes documentation of this encounter, coordinating patient care and communicating with other healthcare professionals. Total time does not include separately billed tests performed on this date of service.
Subjective Data
-
Date of Service:
Date of Service: May 05, 2025
Chief Complaint: Pulmonary Follow Up
Subjective:
Patient was seen and evaluated today at bedside. Did not sleep well overnight. Current heart rate 125, BP 98/87 and she is saturating 96% on 2 L/min nasal cannula. Afebrile overnight. Blood gas yesterday showed evidence of chronic hypercapnia.
Patient's daughter, Loli, present at bedside.
Review of Systems
General: Other (Negative unless mentioned above)
Objective Data
Data Reviewed
Vital Signs / I&O / Oxygen:
Vital Signs
Temp Pulse Resp BP Pulse Ox
97.9 F 128 29 133/92 94
05/04/25 20:25 05/05/25 09:30 05/05/25 09:30 05/05/25 08:08 05/05/25 09:30
Intake and Output
05/04/25 05/05/25 05/06/25
06:59 06:59 06:59
Intake Total 250 / 250 900 / 900 240 / 240
Output Total 1700 / 1700 700 / 700
Balance 250 / 250 -800 / -800 -460 / -460
SaO2 94
Nasal Cannula flow liters per 2
minute
Physical Exam
General: Respiratory Distress (negative), Comfortable and Chills (negative)
HEENT: Normocephalic and Anicteric
Cardiovascular: Irregular Rhythm (Irregularly irregular), Peripheral Edema (+1 lower extremity pedal edema bilaterally) and Other (Tachycardic)
Respiratory: Wheeze (negative), Crackles (negative), Rhonchi (negative), Non-Labored Respirations, Stridor (negative) and Other (Diminished breath sounds bilaterally)
GI: Soft, Distended (Abdominal obesity), Non Tender and Normal Bowel Sounds
Neurology: Awake, Alert, Oriented and Tremors (negative)
Skin: Warm, Dry, Cyanosis (negative) and Jaundice (negative)
Labs/Micro/Reports
Lab Data
05/05/25 04:06
05/05/25 04:06
Laboratory Results
05/04/25
14:32
pH 7.38
pCO2 53 H
pO2 83
HCO3 31.4 H
O2 Delivery Level Not Reportable
Microbiology
05/03/25 13:13 Blood/Venous Blood Culture - Preliminary
No Growth in 24 hours- Final report to follow
05/03/25 13:13 Nasal Swab Influenza Types A & B (SHAUNA) - Final
Negative for Influenza A & B, NAAT
Negative results must be combined with clinical observations
and patient history.
Nucleic Acid Amplification test (NAAT)performed on the
Between platform.
[2025-05-05 12:09] LABS: Folate 15.4 ng/ml (2.76-20); Vitamin B12 > 1000 pg/ml (239-931)
[2025-05-05] MEDS: TYLENOL 650 MG PO ×2 (13:17→23:52)
--- NOTE | 2025-05-05 13:20 | PTCARENOTE ---
Pt assessed.No change in assessment noted.c/o posterior neck pain 5/10.Requested and received Tylenol.
[2025-05-05] MEDS: ROCEPHIN 1000 MG IV (17:42)
[2025-05-05] MEDS: FARXIGA 10 MG PO (17:42)
[2025-05-05] MEDS: STERILE WATER FOR INJECTION 10 ML IV (17:43)
--- NOTE | 2025-05-05 20:00 | PTCARENOTE ---
Rec'd pt sitting on chair, oriented, cooperative, denies pain, AFIB, weak distal pulses, skin warm/dry, O2 2 liters nc, lungs decr, tachypneic, pinto, occas cough, + bowel sounds, abd soft, no n/v, purewick applied when in bed
--- NOTE | 2025-05-05 22:21 | PTCARENOTE ---
amb to bathroom to void , then to bed, desat to 84, o2 incr to 4 liters temp, then placed on cpap 8 with 4 liters o2 by resp
[2025-05-06] VITALS (15 sets, daily range): BP systolic 94–143; BP diastolic 56–88; BMI 29.8
--- NOTE | 2025-05-06 | PTCARENOTE ---
sys reviewed, changes noted, tylenol given for neck ache,CHG bath done, linens changed
[2025-05-06 03:46] LABS: Hematocrit 45.0 % (37.0-47.0); Hemoglobin 14.0 g/dL (12.0-16.0); Mean Corp Hgb Conc. 31.1 g/dL (33.0-37.0); Mean Corpuscular Volume 104.7 fL (81.0-99.0); Nucleated Red Blood Cells % 0.2 %; Platelet Count 223 10^3/uL (130-400); Red Cell Dist. Width 13.4 % (11.5-14.5)
[2025-05-06 04:09] LABS: ALT (SGPT) 26 U/L (0-35); AST (SGOT) 36 U/L (14-36); Albumin 3.5 g/dl (3.5-5.0); Alkaline Phosphatase 64 U/L (38-126); Blood Urea Nitrogen 26 mg/dl (7-17); Calcium 9.8 mg/dl (8.4-10.2); Chloride 104 mmol/L (98-107); Estimated Creatinine Clearance 70 ml/min; Glucose 127 mg/dl (70-99); Potassium 5.1 mmol/L (3.5-5.1); Sodium 142 mmol/L (135-145); Total Protein 6.2 g/dl (6.3-8.2); eGFR > 60.00
--- NOTE | 2025-05-06 04:15 | PTCARENOTE ---
CPAP off per pt request, sat 97
[2025-05-06 04:18] LABS: Carbon Dioxide 35 mmol/L (22-30)
[2025-05-06] MEDS: ATROVENT NEBULES 0.5 MG INH ×3 (07:20→19:28)
[2025-05-06] MEDS: LASIX 20 MG IV ×2 (07:30→09:52)
--- NOTE | 2025-05-06 07:36 | PTCARENOTE ---
Sudden onset SOB...tachypneic. 02 increased to 6L N/C and then midflow. Lasix IV given per AUG. O2 decreased to 4L N/C within minutes...sats 96% at present. Call mao within reach. Will continue to monitor closely.
--- NOTE | 2025-05-06 08:00 | PTCARENOTE ---
Coarse crackles throughout w/ previous event. Currently coarse crackles noted in bilateral bases...extremely HERNÁNDEZ and SOB at rest. Call mao in reach.
[2025-05-06] MEDS: TOPROL XL 25 MG PO (08:05)
--- NOTE | 2025-05-06 08:24 | W.PN.CARDCBS ---
Today's Communication / Plan
-
Remains in atrial fibrillation with rapid ventricular response. Episode of acute dyspnea this a.m.
She received Lasix 20 mg IV this a.m. Will give additional Lasix 20 mg IV this a.m. 05/06. Increase Lasix to 40 mg IV daily starting 05/07.
Stop beta-teddy with pulmonary history and resume Cardizem but will split her outpatient Cardizem dose to Cardizem CD 180 mg twice a day.
Start IV Cardizem drip for better heart rate control and hopefully can wean off quickly.
We did discuss that pending her clinical response that we may reconsider rhythm control therapy. She has previously declined rhythm control therapy and did not tolerate amiodarone in the past. Could consider cardioversion later this week pending
her heart rate response and pulmonary status.
Continue Eliquis for stroke prophylaxis. She has not had recent Eliquis interruption.
Her rapid rates are likely secondary to COPD exacerbation and are likely contributing to heart failure.
Echo is pending. Last echo showed preserved LV function.
Midodrine was already added this admission for blood pressure support
She may require higher dose of Lasix as an outpatient, at the time of discharge.
Continue GDMT including Farxiga 10 mg daily
Impression / Plan
-
.
Aircraft Maintenance Technician: Dr. Mayers
Impression:
Persistent atrial fibrillation currently in rapid ventricular response on Eliquis
Acute hypoxic respiratory failure, multifactorial
Acute on chronic heart failure with preserved ejection fraction
Acute COPD exacerbation
Concern for infection with Leukocytosis and elevated procalcitonin/ lactic acid
Chronic hypercapnic respiratory failure, chronic nocturnal hypoxemia on home O2
Bilateral carotid artery disease
Mild dilatation of aortic root
Echo Jun 2024: Normal biventricular size and systolic function with EF estimated 60 to 65%. No significant valve disease with mild AI and trace MR/TR. Estimated pulmonary artery pressure 25-30 mmHg. Sinus of Valsalva 3.7 cm, proximal ascending
aorta 4 cm. No pericardial effusion
CT of the chest angio October 2024: Mid ascending aorta 4 cm which is considered top normal and stable. Mild dilation of the aortic root: Sinus of Valsalva 4.2 cm. Left dominant coronary circulation with moderate to severe coronary artery
calcifications. No pulmonary embolism. No left atrial thrombus. No significant narrowing of the origins of the great vessels from the thoracic aorta. No significant dilatation of the aortic arch or descending thoracic aorta. No significant
dilatation of the upper abdominal aorta. Moderate to severe emphysema with mild to moderate by lateral apical pleural-parenchymal scarring. No lung mass. Moderate increase in thoracic kyphosis
-Carotid ultrasound 01/10/2019: Bilateral plaque but no significant ICA disease. She is scheduled as an outpatient for repeat carotid duplex
Plan:
Remains in atrial fibrillation with rapid ventricular response. Episode of acute dyspnea this a.m.
She received Lasix 20 mg IV this a.m. Will give additional Lasix 20 mg IV this a.m. 05/06. Increase Lasix to 40 mg IV daily starting 05/07.
Stop beta-teddy with pulmonary history and resume Cardizem but will split her outpatient Cardizem dose to Cardizem CD 180 mg twice a day.
Start IV Cardizem drip for better heart rate control and hopefully can wean off quickly.
We did discuss that pending her clinical response that we may reconsider rhythm control therapy. She has previously declined rhythm control therapy and did not tolerate amiodarone in the past. Could consider cardioversion later this week pending
her heart rate response and pulmonary status.
Continue Eliquis for stroke prophylaxis. She has not had recent Eliquis interruption.
Her rapid rates are likely secondary to COPD exacerbation and are likely contributing to heart failure.
Echo is pending. Last echo showed preserved LV function.
Midodrine was already added this admission for blood pressure support
She may require higher dose of Lasix as an outpatient, at the time of discharge.
Continue GDMT including Farxiga 10 mg daily
Coronary artery disease on CT imaging without chest pain.
Continue medical therapy.
Mild aortic root and thoracic aortic enlargement
Stable on CT imaging.
Concern for infection with leukocytosis, elevated lactate and procalcitonin/COPD exacerbation
-Influenza and COVID negative. Cultures so far no growth to date
-Empiric antibiotics per float nurse
-Management per pulmonary/intensive care
Discussed with nursing.
CCT: 30 min
Progress Note - Aircraft Maintenance Technician
Subjective
Date of Service: May 06, 2025
Pt seen and examined. No cp. Dyspnea with am
Objective
Labs:
05/06/25 02:57
05/06/25 02:57
Labs
Hgb 14.0 g/dL (12.0-16.0) 05/06/25 02:57
Hct 45.0 % (37.0-47.0) 05/06/25 02:57
Plt Count 223 10^3/uL (130-400) 05/06/25 02:57
PT 22.2 Sec (11.4-14.6) H 05/04/25 04:03
INR 1.93 05/04/25 04:03
APTT 44.7 Sec (23.4-35.0) H 05/04/25 04:03
Sodium 142 mmol/L (135-145) 05/06/25 02:57
Potassium 5.1 mmol/L (3.5-5.1) 05/06/25 02:57
BUN 26 mg/dl (7-17) H 05/06/25 02:57
Creatinine 0.6 mg/dL (0.6-1.0) 05/06/25 02:57
Glucose 127 mg/dl (70-99) H 05/06/25 02:57
Vital Signs and I&O:
Vital Signs
Temp Pulse Resp BP Pulse Ox
97.6 F 137 18 143/83 94
05/06/25 04:00 05/06/25 08:05 05/06/25 07:23 05/06/25 08:05 05/06/25 07:23
Vital Signs
Temp Pulse Resp BP Pulse Ox
97.6 F 137 18 143/83 94
05/06/25 04:00 05/06/25 08:05 05/06/25 07:23 05/06/25 08:05 05/06/25 07:23
Intake & Output
05/04/25 05/05/25 05/06/25 05/07/25
06:59 06:59 06:59 06:59
Intake Total 250 / 250 900 / 900 1120 / 1120
Output Total 1700 / 1700 1825 / 1825
Balance 250 / 250 -800 / -800 -705 / -705
Physical Exam
Physical Exam
General: No acute distress, AAOX3
Neck: Negative JVD
Heart: Irregularly irregular, Negative S3 positive S1/S2, Negative S4, No murmur
Lungs: CTA b/l, negative wheezes/rales/rhonchi
Abd: Positive BS, NT/ND, neg rebound/rigidity/guarding
Ext: Negative cyanosis/clubbing/edema
Neuro: nonfocal
[2025-05-06] MEDS: TYLENOL 650 MG PO ×2 (08:56→15:49)
--- NOTE | 2025-05-06 09:45 | PTCARENOTE ---
Spoke w/ cardiology. Additional 20mg IV lasix ordered. Oral cardizem and IV cardizem ordered...see intervention. Scheduled for echo this am. Pt sat'ing 88% and above on 2-4L N/C. Call mao within reach. Safe environment confirmed.
[2025-05-06] MEDS: CARDIZEM 125 IV ×2 (09:51→17:24)
[2025-05-06] MEDS: ELIQUIS 5 MG PO ×2 (09:56→19:46)
[2025-05-06] MEDS: LIPITOR 10 MG PO (09:56)
[2025-05-06] MEDS: CARDIZEM CD 180 MG PO ×2 (09:56→19:46)
[2025-05-06] MEDS: THERAGRAN PO (10:00)
[2025-05-06] MEDS: VITAMIN B-12 PO (10:00)
[2025-05-06] MEDS: VITAMIN D3 (cholecalciferol) PO (10:00)
--- NOTE | 2025-05-06 10:47 | W.PN.PUL3 ---
Today's Communication / Plan
-
- DC ceftriaxone.
- DC IV steroids, switch to prednisone 30 mg daily
- Chest x-ray stat this morning
- Continue diuresis per cardiology service
Assessment
-
Assessment: 79-year-old female with a past medical history of COPD/centrilobular emphysema, chronic hypoxic respiratory failure on 2 L/min nasal cannula with sleep, AAA without rupture, A-fib and Eliquis, chronic HFpEF, restrictive lung disease,
glaucoma, tributary retinal vein occlusion, bilateral carotid artery disease, history of kidney stones and osteoarthritis who presents with worsening shortness of breath. Patient has oxygen at home and she was using 3 L/min prior to arrival. She
is prescribed Spiriva but does not feel that the medicine gets into her lungs and instead hit the top of her mouth, so she has been using DuoNebs twice daily and has been feeling generally well with this. On Tuesday morning at 3:00 AM, she woke up
feeling short of breath. Before that she was in her usual state of health. She took a nebulizer which helped her feel better but her shortness of breath then recurred and then she saw her primary doctor later that day and she was sent to the ER.
The patient's has a cold currently but he has been not living in the same apartment as Martita. The patient currently denies any urinary frequency, pain with urination, or lower abdominal/flank pain. In the ER she was afebrile to 98.8 �F,
pulse rate 68, respiratory rate 16, BP 125/80 and she was saturating 96% on 3 L/min nasal cannula. Initial labs showed leukocytosis to 23.4, 11% bands, serum bicarbonate level 35, lactate 3.8, T. bili 1.4, and blood cultures were collected with flu
swab negative and COVID-19 antigen also negative. Imaging via CXR showed chronic biapical pleural/parenchymal changes with no evidence of pneumonia. CT chest/abdomen/pelvis also showed no evidence of pneumonia, with distal colonic diverticulosis
and with no intra-abdominal pathology although gallbladder was borderline prominent in size but without focal intrinsic abnormality. She was given IVF in the ER with 500 cc bolus x 2 of NS 0.9%, ceftriaxone, Zithromax and DuoNebs. Given her
significant SOB, she was started on BiPAP 05/24 which was bled with 6 L/min. Due to her acute respiratory distress, she was admitted to the ICU for further care and marine electronics technician service consulted for additional management/recommendations.
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
carotid artery disease, osteoporosis, history of kidney stones, osteoarthritis, obesity
Assessment and plan:
#1. Acute on chronic hypoxic respiratory failure
-At baseline oxygen dependent at nighttime and as needed. Recent worsening related to COPD exacerbation
-Continue to wean oxygen as tolerated
#2. Acute COPD exacerbation
- No wheezing this morning
- Continue scheduled ipratropium, discontinue IV steroids and switch to prednisone 30 mg p.o. daily
- No pneumonia noted on imaging, discontinue ceftriaxone, continue doxycycline for acute bronchitis
-Minimizing albuterol in view of rapid ventricular rate
#3. Atrial fibrillation with RVR
- Cardiology service on case
- Increased dyspnea since patient flipped into rapid ventricular rate on 05/06
- Cardizem drip initiated on 05/06, continue p.o. Cardizem as well as Eliquis
- Patient feels weak and tired while in atrial fibrillation and rapid ventricular rate. Depending upon clinical course, might need to consider cardioversion.
#4. HFpEF
- Patient noted to have pedal edema, increased shortness of breath in the setting of rapid ventricular rate
- proBNP elevated to 0 on admission.
- Suspect A-fib with RVR contributing to worsening dyspnea and pulmonary congestion
- Lasix dose uptitrated to 40 IV daily per cardiology service
- Await echocardiogram
Other medical diagnoses:
#Lactic acidosis � resolved as of 05/03/2025
#Hyperbilirubinemia � now resolved
#Centrilobular emphysema
#Former tobacco smoker
#Osteoporosis
#History of kidney stones
- Dr. Selby discussed with the pt and her daughter her use of nebulized bronchodilators, and considering that she gets shaky at home with use of albuterol and that she is currently having atrial fibrillation with increased heart rate, upon
discharge we should start her on levoalbuterol which will replace nebulized albuterol; if HR is controlled during this hospitalization, then can consider using the 1.25 mg nebulized albuterol as opposed to the 2.5 mg formulation
- prn nebulized bronchodilators - not currently bronchospastic
- Maintain SpO2 88-95%, wean down on supplemental O2 as tolerated; check an ambulatory pulse oximetry prior to discharge
- DVT ppx: Eliquis
Code status: DNR/DNI
Resume outpatient follow-up with Dr. Selby at [facility] pulmonary clinic
Pulmonary service will continue to follow along.
Total time spent today was 38 minutes for this encounter. Time includes reviewing laboratory test/imaging results, reviewing pertinent medical records, obtaining and reviewing medical history, performing an appropriate exam, ordering medications,
tests and procedures. Time also includes documentation of this encounter, coordinating patient care and communicating with other healthcare professionals. Total time does not include separately billed tests performed on this date of service.
Subjective Data
-
Date of Service:
Date of Service: May 06, 2025
Chief Complaint: Pulmonary Follow Up
Subjective:
Patient comfortably sitting in bed in no acute distress.
Review of Systems
Genitourinary: Other (Reported episode of dyspnea 05/06 with atrial fibrillation and rapid ventricular rate.)
Objective Data
Data Reviewed
Vital Signs / I&O / Oxygen:
Vital Signs
Temp Pulse Resp BP Pulse Ox
97.8 F 148 18 143/83 94
05/06/25 07:32 05/06/25 09:56 05/06/25 07:23 05/06/25 09:56 05/06/25 07:23
Intake and Output
05/05/25 05/06/25 05/07/25
06:59 06:59 06:59
Intake Total 900 / 900 1120 / 1120 370 / 370
Output Total 1700 / 1700 1825 / 1825 75 / 75
Balance -800 / -800 -705 / -705 295 / 295
SaO2 94
Nasal Cannula flow liters per 2
minute
Physical Exam
General: Respiratory Distress (negative), Comfortable and Chills (negative)
HEENT: Normocephalic and Anicteric
Cardiovascular: Irregular Rhythm (Irregularly irregular. Tachycardia into 120s to 140s during my evaluation), Peripheral Edema (+1 lower extremity pedal edema bilaterally) and Other (Tachycardic)
Respiratory: Wheeze (negative), Crackles (Few inspiratory crackles in the bases), Rhonchi (negative), Non-Labored Respirations, Stridor (negative) and Other (Diminished breath sounds bilaterally)
GI: Soft, Distended (Abdominal obesity), Non Tender and Normal Bowel Sounds
Neurology: Awake, Alert, Oriented and Tremors (negative)
Skin: Warm, Dry, Cyanosis (negative) and Jaundice (negative)
Labs/Micro/Reports
Lab Data
05/06/25 02:57
05/06/25 02:57
Microbiology
05/03/25 13:13 Blood/Venous Blood Culture - Preliminary
No Growth in 48 hours- Final report to follow
05/04/25 12:54 Urine Urine Culture - Final
NO GROWTH
05/03/25 13:13 Nasal Swab Influenza Types A & B (SHAUNA) - Final
Negative for Influenza A & B, NAAT
Negative results must be combined with clinical observations
and patient history.
Nucleic Acid Amplification test (NAAT)performed on the
tabulate platform.
[2025-05-06] MEDS: DELTASONE 30 MG PO (11:13)
[2025-05-06] MEDS: VIBRAMYCIN 100 MG PO ×2 (11:14→19:46)
--- NOTE | 2025-05-06 12:31 | W.PN.HOSP.TC ---
Today's Communication/Plan
-
Rate control
Check ECHO
Agree with stopping Rocephin
Assessment / Plan
Assessment / Plan
79-year-old with shortness of breath
CT of the chest abdomen pelvis-05/03/2025-limited study. No findings of pneumonia pleural effusion or any gross abnormalities. Distal colonic diverticulosis. Pattern of centrilobular emphysema
CVS: S1-S2 irregular
Chest: CTA B/L, diminished.
Abdomen: Soft, NT / Bowel sounds present
Extremities: Trace edema,
# Acute on chronic hypoxic respiratory failure-on 2 L of oxygen at baseline
Weaned off of BiPAP to nasal cannula oxygen
COVID and influenza negative. Blood cultures negative
Likely secondary to acute COPD exacerbation pneumonia and heart failure
# Sepsis ruled out
Lactic acidosis-better
CT of the chest-without any acute changes or infection
# COPD exacerbation-
Continue Doxy
Taper steroids
On Spiriva as outpatient
# Acute on chronic HFpEF-BNP 2089
On Lasix 20 mg p.o. daily as outpatient-continue Lasix 20 mg IV daily
Continue Farxiga
Continue intake output charting
Check echo
Cardiology following
# Atrial fibrillation with RVR
On Eliquis and Cardizem 360 mg, metoprolol 25 mg daily as outpatient
Continue Eliquis
Continue midodrine and metoprolol XL increased from daily dosage to 25 mg p.o. twice daily
Cardizem gtt started.
# Abnormal urinalysis-cultures negative
# Hyperlipidemia will continue atorvastatin
# Known thoracic aortic aneurysm
# Osteoporosis-on alendronate 70 mg on Mondays
# Colonic diverticulosis
# History of nephrolithiasis
# Ex-smoker
# DVT prophylaxis-Eliquis
# DNR
D/W Daughter at bed side
Part of this note was created using voice recognition system. Occasional wrong word or��sound alike� substitutions may have inadvertently occurred due to the inherent limitations of voice recognition software. If noted kindly bring it to my
attention for correction.
Anticipated Discharge: > 48 hours
Subjective/Interval History
-
Date of Service: May 06, 2025
Objective Data
-
Labs:
Laboratory Results
05/06/25
02:57
WBC 13.0 H
Hgb 14.0
Hct 45.0
Plt Count 223
Sodium 142
Potassium 5.1
Chloride 104
Carbon Dioxide 35 H
BUN 26 H
Creatinine 0.6
Glucose 127 H
Calcium 9.8
Total Bilirubin 0.5
AST 36
ALT 26
Alkaline Phosphatase 64
Vital Signs:
Vital Signs
Temp Pulse Resp BP Pulse Ox
98.3 F 114 22 127/88 94
05/06/25 11:50 05/06/25 12:00 05/06/25 12:00 05/06/25 12:00 05/06/25 12:00
I&O
05/05/25 05/06/25 05/07/25
06:59 06:59 06:59
Intake Total 900 / 900 1120 / 1120 370 / 370
Output Total 1700 / 1700 1825 / 1825 75 / 75
Balance -800 / -800 -705 / -705 295 / 295
--- NOTE | 2025-05-06 16:00 | PTCARENOTE ---
Remains on cardizem gtt @ 15mg/hr. Echo completed earlier today. On 2L N/C...sats 95%. Call mao within reach. Dtr at bedside.
--- NOTE | 2025-05-06 16:47 | PTCARENOTE ---
Assist x 2 to get OOB in chair. +HERNÁNDEZ...sats 92-95% after transfer. Call mao in reach.
--- NOTE | 2025-05-06 16:53 | CM ---
IV/Steroids and IV/AB d/cd, IV/Lasix for diuresing, PO AB and PO Prednisone. Discharge POC: Therapy rec for HH. Referral placed.
[2025-05-06] MEDS: FARXIGA 10 MG PO (17:22)
--- NOTE | 2025-05-06 19:50 | PTCARENOTE ---
Rec'd pt sitting on chair, dtr at bedside, denies pain, cooperative, Afib, Cardizem gtt at 15mg/hr, to Keep HR 80-100, weak distal pulses, + LE edema, skin warm/dry, o2 4 liters nc, lungs decr, bibas crackles, + HERNÁNDEZ, sat 97, + bowel sounds, abd
soft/nontender, mary diet, voids w/o problem
--- NOTE | 2025-05-06 20:47 | PTCARENOTE ---
assisted back to bed, alan applied a tpt request since she becomes sob w/ using the bedpan
--- NOTE | 2025-05-06 22:00 | PTCARENOTE ---
CHG bath done, placed on cpap 8 by resp therapist, pt only mary for 45min, then changed to 4 liters nc at her request
[2025-05-07] VITALS (23 sets, daily range): BP systolic 94–132; BP diastolic 57–106; PULSE 123; O2SAT 91; BMI 29.3
--- NOTE | 2025-05-07 | PTCARENOTE ---
sleeping, weaning card as mary
[2025-05-07] MEDS: CARDIZEM 125 IV (03:08)
[2025-05-07 03:19] LABS: Hematocrit 47.4 % (37.0-47.0); Hemoglobin 15.1 g/dL (12.0-16.0); Mean Corp Hgb Conc. 31.9 g/dL (33.0-37.0); Mean Corpuscular Volume 101.5 fL (81.0-99.0); Nucleated Red Blood Cells % 0.2 %; Platelet Count 223 10^3/uL (130-400); Red Cell Dist. Width 13.4 % (11.5-14.5)
[2025-05-07 03:38] LABS: Blood Urea Nitrogen 33 mg/dl (7-17); Calcium 9.9 mg/dl (8.4-10.2); Chloride 100 mmol/L (98-107); Estimated Creatinine Clearance 69 ml/min; Glucose 117 mg/dl (70-99); Potassium 4.6 mmol/L (3.5-5.1); Sodium 140 mmol/L (135-145); eGFR > 60.00
[2025-05-07 04:03] LABS: Carbon Dioxide 39 mmol/L (22-30)
--- NOTE | 2025-05-07 07:02 | W.PN.CARDCBS ---
Today's Communication / Plan
-
Remains in atrial fibrillation with improved heart rate control.
Wean off IV Cardizem
Increase Cardizem CD to 240 mg BID (She was taking Cardizem CD 360 mg daily at outpt)
Again discussed that in reference to Afib, pending her clinical response, that we may reconsider rhythm control therapy. She has previously declined rhythm control therapy and did not tolerate amiodarone in the past. Could consider cardioversion
later this week pending her heart rate response and pulmonary status vs outpt reeval. She has historically declined cardioversion and is leaning toward outpt reeval.
Continue Eliquis for stroke prophylaxis.
Her rapid rates are likely secondary to COPD exacerbation and are likely contributing to heart failure.
Midodrine was already added this admission for blood pressure support
Wt coming down. Cont Lasix 40 mg IV daily and possible transition to oral lasix next 24-48 hrs.
Echo shows preserved LV function without high grade valve disease and similar to prior echo from Jun 2024.
Impression / Plan
-
.
Engineering Design Manager: Dr. Mayers
Impression:
Persistent atrial fibrillation currently in rapid ventricular response on Eliquis
Acute hypoxic respiratory failure, multifactorial
Acute on chronic heart failure with preserved ejection fraction
Acute COPD exacerbation
Concern for infection with Leukocytosis and elevated procalcitonin/ lactic acid
Chronic hypercapnic respiratory failure, chronic nocturnal hypoxemia on home O2
Bilateral carotid artery disease
Mild dilatation of aortic root
Echo May 06 2025: Compared to a prior transthoracic echocardiogram study from June 2024 no significant changes are seen. Mildly dilated aortic root with Sinus of Valsalva measuring 3.8 cm. sinotubular junction mesures 3.7 cm. and ascending aorta
measures 3.8 cm.Normal left ventricular size. Overall, preserved left ventricular systolic function. Mild concentric left ventricular hypertrophy. No regional wall motion abnormalities. Left ventricular ejection fraction is 50-55% by visual
estimate. Mild AR, mild TR, PASP 37 mmHg
Echo Jun 2024: Normal biventricular size and systolic function with EF estimated 60 to 65%. No significant valve disease with mild AI and trace MR/TR. Estimated pulmonary artery pressure 25-30 mmHg. Sinus of Valsalva 3.7 cm, proximal ascending
aorta 4 cm. No pericardial effusion
CT of the chest angio October 2024: Mid ascending aorta 4 cm which is considered top normal and stable. Mild dilation of the aortic root: Sinus of Valsalva 4.2 cm. Left dominant coronary circulation with moderate to severe coronary artery
calcifications. No pulmonary embolism. No left atrial thrombus. No significant narrowing of the origins of the great vessels from the thoracic aorta. No significant dilatation of the aortic arch or descending thoracic aorta. No significant
dilatation of the upper abdominal aorta. Moderate to severe emphysema with mild to moderate by lateral apical pleural-parenchymal scarring. No lung mass. Moderate increase in thoracic kyphosis
-Carotid ultrasound 01/10/2019: Bilateral plaque but no significant ICA disease. She is scheduled as an outpatient for repeat carotid duplex
Plan:
Remains in atrial fibrillation with improved heart rate control.
Wean off IV Cardizem
Increase Cardizem CD to 240 mg BID (She was taking Cardizem CD 360 mg daily at outpt)
Again discussed that in reference to Afib, pending her clinical response, that we may reconsider rhythm control therapy. She has previously declined rhythm control therapy and did not tolerate amiodarone in the past. Could consider cardioversion
later this week pending her heart rate response and pulmonary status vs outpt reeval. She has historically declined cardioversion and is leaning toward outpt reeval.
Continue Eliquis for stroke prophylaxis.
Her rapid rates are likely secondary to COPD exacerbation and are likely contributing to heart failure.
Midodrine was already added this admission for blood pressure support
Wt coming down. Cont Lasix 40 mg IV daily and possible transition to oral lasix next 24-48 hrs.
Echo shows preserved LV function without high grade valve disease and similar to prior echo from Jun 2024.
Continue GDMT including Farxiga 10 mg daily
Coronary artery disease on CT imaging without chest pain.
Continue medical therapy.
Mild aortic root and thoracic aortic enlargement
Stable on CT imaging.
Concern for infection with leukocytosis, elevated lactate and procalcitonin/COPD exacerbation
-Influenza and COVID negative. Cultures so far no growth to date
-Antibiotics per sr vice president
-Management per pulmonary/intensive care
Discussed with nursing.
Progress Note - Engineering Design Manager
Subjective
Date of Service: May 07, 2025
Pt seen and examined. No cp. Slept better last night and breathing better
Objective
Labs:
05/07/25 03:07
05/07/25 03:07
Labs
Hgb 15.1 g/dL (12.0-16.0) 05/07/25 03:07
Hct 47.4 % (37.0-47.0) H 05/07/25 03:07
Plt Count 223 10^3/uL (130-400) 05/07/25 03:07
PT 22.2 Sec (11.4-14.6) H 05/04/25 04:03
INR 1.93 05/04/25 04:03
APTT 44.7 Sec (23.4-35.0) H 05/04/25 04:03
Sodium 140 mmol/L (135-145) 05/07/25 03:07
Potassium 4.6 mmol/L (3.5-5.1) 05/07/25 03:07
BUN 33 mg/dl (7-17) H 05/07/25 03:07
Creatinine 0.6 mg/dL (0.6-1.0) 05/07/25 03:07
Glucose 117 mg/dl (70-99) H 05/07/25 03:07
Vital Signs and I&O:
Vital Signs
Temp Pulse Resp BP Pulse Ox
98.5 F 104 23 110/67 97
05/07/25 03:52 05/07/25 06:03 05/07/25 06:00 05/07/25 06:00 05/07/25 06:00
Vital Signs
Temp Pulse Resp BP Pulse Ox
98.5 F 104 23 110/67 97
05/07/25 03:52 05/07/25 06:03 05/07/25 06:00 05/07/25 06:00 05/07/25 06:00
Intake & Output
05/05/25 05/06/25 05/07/25 05/08/25
06:59 06:59 06:59 06:59
Intake Total 900 / 900 1120 / 1120 1240 / 1240
Output Total 1700 / 1700 1825 / 1825 1925 / 1925
Balance -800 / -800 -705 / -705 -685 / -685
Physical Exam
Physical Exam
General: No acute distress, AAOX3
Neck: Negative JVD
Heart: Irregularly irregular, Negative S3 positive S1/S2, Negative S4, No murmur
Lungs: CTA b/l, negative wheezes/rales/rhonchi
Abd: Positive BS, NT/ND, neg rebound/rigidity/guarding
Ext: Negative cyanosis/clubbing/edema
Neuro: nonfocal
[2025-05-07] MEDS: ATROVENT NEBULES 0.5 MG INH (07:15)
[2025-05-07] MEDS: VITAMIN B-12 1000 MCG PO (08:52)
[2025-05-07] MEDS: ELIQUIS 5 MG PO ×2 (08:52→20:08)
[2025-05-07] MEDS: DELTASONE 30 MG PO (08:52)
[2025-05-07] MEDS: THERAGRAN 1 TABLET PO (08:52)
[2025-05-07] MEDS: VITAMIN D3 (cholecalciferol) 50 MCG PO (08:52)
[2025-05-07] MEDS: LASIX 40 MG IV (08:53)
[2025-05-07] MEDS: VIBRAMYCIN 100 MG PO ×2 (08:53→20:08)
[2025-05-07] MEDS: LIPITOR 10 MG PO (08:53)
[2025-05-07] MEDS: CARDIZEM CD 240 MG PO ×2 (08:58→20:08)
--- NOTE | 2025-05-07 09:15 | PTCARENOTE ---
Spoke with Dr. Mayers, will turn off cardizem gtt if HR is less than 130.
--- NOTE | 2025-05-07 09:40 | W.PN.HOSP.TC ---
Today's Communication/Plan
-
Turn off Cardizem drip today
If she remains off Cardizem drip can be transferred to telemetry
PT OT
Assessment / Plan
Assessment / Plan
79-year-old with shortness of breath
CT of the chest abdomen pelvis-05/03/2025-limited study. No findings of pneumonia pleural effusion or any gross abnormalities. Distal colonic diverticulosis. Pattern of centrilobular emphysema
CVS: S1-S2 irregular
Chest: few rales
Abdomen: Soft, NT / Bowel sounds present
Extremities: No edema
Echo 05/06/2025-no significant changes since June. Mildly dilated aortic root 3.8 cm. Ascending aorta 3.8 cm. Normal LV size. Mild concentric LVH. EF 50 to 55%. Adequate leaflet excursion. Mild AI. Mild TR. PA pressure 37 mmHg
# Acute on chronic hypoxic respiratory failure-on 2 L of oxygen at baseline
Weaned off of BiPAP to nasal cannula oxygen
COVID and influenza negative. Blood cultures negative
Likely secondary to acute COPD exacerbation and heart failure
# Sepsis ruled out
Lactic acidosis-better
CT of the chest-without any acute changes or infection
# COPD exacerbation-
Continue Doxy
Taper steroids
On Spiriva as outpatient
# Acute on chronic HFpEF-BNP 2089
On Lasix 20 mg p.o. daily as outpatient-continue Lasix 40 mg IV daily
Lasix to be changed to p.o. tomorrow
Continue Farxiga
Continue intake output charting
Echo as above
Cardiology following
# Atrial fibrillation with RVR
On Eliquis and Cardizem 360 mg, metoprolol 25 mg daily as outpatient
Continue Eliquis
Continue midodrine
Cardizem gtt titrated down. Cardizem increased to 240 mg twice daily
Patient does not want cardioversion. Beta-blockers discontinued
# Abnormal urinalysis-cultures negative
# Hyperlipidemia will continue atorvastatin
# Known thoracic aortic aneurysm
# Osteoporosis-on alendronate 70 mg on Mondays
# Colonic diverticulosis
# History of nephrolithiasis
# Ex-smoker
# DVT prophylaxis-Eliquis
# DNR
D/W Daughter at bed side
Discussed with nursing
Part of this note was created using voice recognition system. Occasional wrong word or��sound alike� substitutions may have inadvertently occurred due to the inherent limitations of voice recognition software. If noted kindly bring it to my
attention for correction.
Anticipated Discharge: 24 - 48 hours
Subjective/Interval History
-
Date of Service: May 07, 2025
Objective Data
-
Labs:
Laboratory Results
05/07/25
03:07
WBC 11.5 H
Hgb 15.1
Hct 47.4 H
Plt Count 223
Sodium 140
Potassium 4.6
Chloride 100
Carbon Dioxide 39 H
BUN 33 H
Creatinine 0.6
Glucose 117 H
Calcium 9.9
Vital Signs:
Vital Signs
Temp Pulse Resp BP Pulse Ox
98.3 F 138 21 132/63 94
05/07/25 08:08 05/07/25 08:58 05/07/25 07:22 05/07/25 08:58 05/07/25 07:22
I&O
05/06/25 05/07/25 05/08/25
06:59 06:59 06:59
Intake Total 1120 / 1120 1240 / 1240
Output Total 1825 / 1825 1924 / 1924
Balance -705 / -705 -685 / -685
--- NOTE | 2025-05-07 10:56 | VNURNOTE ---
Home Health Liaison met with patient and daughter at bedside to discuss [facility] nurse/therapy, visits, schedule and homebound status. Patient is agreeable and understands that visits at home will be 2-3 x per week to assess and teach medical
management. Both are aware that [facility] will contact them for start of care within a few days after discharge from . Provided contact number for [facility].
[facility] referral accepted in [facility].
[2025-05-07] MEDS: TYLENOL 650 MG PO (11:01)
--- NOTE | 2025-05-07 12:45 | W.PN.PUL3 ---
Today's Communication / Plan
-
- d/c Ipratropium and resume Spiriva qdaily.
- At discharge, can start Levalbuterol nebz as needed instead of Albuterol
- Prednisone 30 mg x 3 days
- 5 days total of Doxycycline should suffice
- Resume outpatient follow-up with Dr. Selby at [facility] pulmonary clinic postdischarge
- Pulmonary team will sign off, please call as needed
Assessment
-
Assessment: 79-year-old female with a past medical history of COPD/centrilobular emphysema, chronic hypoxic respiratory failure on 2 L/min nasal cannula with sleep, AAA without rupture, A-fib and Eliquis, chronic HFpEF, restrictive lung disease,
glaucoma, tributary retinal vein occlusion, bilateral carotid artery disease, history of kidney stones and osteoarthritis who presents with worsening shortness of breath. Patient has oxygen at home and she was using 3 L/min prior to arrival. She
is prescribed Spiriva but does not feel that the medicine gets into her lungs and instead hit the top of her mouth, so she has been using DuoNebs twice daily and has been feeling generally well with this. On Tuesday morning at 3:00 AM, she woke up
feeling short of breath. Before that she was in her usual state of health. She took a nebulizer which helped her feel better but her shortness of breath then recurred and then she saw her primary doctor later that day and she was sent to the ER.
The patient's has a cold currently but he has been not living in the same apartment as Martita. The patient currently denies any urinary frequency, pain with urination, or lower abdominal/flank pain. In the ER she was afebrile to 98.8 �F,
pulse rate 68, respiratory rate 16, BP 125/80 and she was saturating 96% on 3 L/min nasal cannula. Initial labs showed leukocytosis to 23.4, 11% bands, serum bicarbonate level 35, lactate 3.8, T. bili 1.4, and blood cultures were collected with flu
swab negative and COVID-19 antigen also negative. Imaging via CXR showed chronic biapical pleural/parenchymal changes with no evidence of pneumonia. CT chest/abdomen/pelvis also showed no evidence of pneumonia, with distal colonic diverticulosis
and with no intra-abdominal pathology although gallbladder was borderline prominent in size but without focal intrinsic abnormality. She was given IVF in the ER with 500 cc bolus x 2 of NS 0.9%, ceftriaxone, Zithromax and DuoNebs. Given her
significant SOB, she was started on BiPAP 05/24 which was bled with 6 L/min. Due to her acute respiratory distress, she was admitted to the ICU for further care and physiotherapy assistant service consulted for additional management/recommendations.
Chronic conditions MEDICAL RECORD CONSULTANT: COPD, centrilobular emphysema, nocturnal hypoxia, A-fib on Eliquis, AAA without rupture, chronic HFpEF, chronic hypoxic respiratory failure, restrictive lung disease, glaucoma, tributary retinal vein occlusion, bilateral
carotid artery disease, osteoporosis, history of kidney stones, osteoarthritis, obesity
Assessment and plan:
#1. Acute on chronic hypoxic respiratory failure
-At baseline oxygen dependent at nighttime and as needed. Recent worsening related to COPD exacerbation
-Continue to wean oxygen as tolerated
#2. Acute COPD exacerbation
- No wheezing this morning
- DC ipratropium, resume Spiriva. Prednisone 30 mg daily for 3 days total
- No pneumonia noted on imaging, discontinued ceftriaxone, continue doxycycline for acute bronchitis for a total of 5 days.
- Minimizing albuterol in view of rapid ventricular rate
#3. Atrial fibrillation with RVR
- Cardiology service on case
- Increased dyspnea since patient flipped into rapid ventricular rate on 05/06, improved since
- Cardizem drip initiated on 05/06, continue p.o. Cardizem as well as Eliquis, weaning off Cardizem infusion
- Depending upon clinical course, might need to consider cardioversion.
#4. HFpEF
- Patient noted to have pedal edema, increased shortness of breath in the setting of rapid ventricular rate
- proBNP elevated to 2090 on admission.
- Suspect A-fib with RVR contributing to worsening dyspnea and pulmonary congestion
- Lasix dose uptitrated to 40 IV daily per cardiology service
Other medical diagnoses:
#Lactic acidosis � resolved as of 05/03/2025
#Hyperbilirubinemia � now resolved
#Centrilobular emphysema
#Former tobacco smoker
#Osteoporosis
#History of kidney stones
- Dr. Selby discussed with the pt and her daughter her use of nebulized bronchodilators, and considering that she gets shaky at home with use of albuterol and that she is currently having atrial fibrillation with increased heart rate, upon
discharge we should start her on levoalbuterol which will replace nebulized albuterol; if HR is controlled during this hospitalization, then can consider using the 1.25 mg nebulized albuterol as opposed to the 2.5 mg formulation
- prn nebulized bronchodilators - not currently bronchospastic
- Maintain SpO2 88-95%, wean down on supplemental O2 as tolerated; check an ambulatory pulse oximetry prior to discharge
- DVT ppx: Eliquis
Code status: DNR/DNI
Resume outpatient follow-up with Dr. Selby at [facility] pulmonary clinic
Pulmonary service will continue to follow along.
Total time spent today was 42 minutes for this encounter. Time includes reviewing laboratory test/imaging results, reviewing pertinent medical records, obtaining and reviewing medical history, performing an appropriate exam, ordering medications,
tests and procedures. Time also includes documentation of this encounter, coordinating patient care and communicating with other healthcare professionals. Total time does not include separately billed tests performed on this date of service.
Subjective Data
-
Date of Service:
Date of Service: May 07, 2025
Chief Complaint: Pulmonary Follow Up
Objective Data
Data Reviewed
Vital Signs / I&O / Oxygen:
Vital Signs
Temp Pulse Resp BP Pulse Ox
97.9 F 127 21 121/86 96
05/07/25 12:17 05/07/25 10:00 05/07/25 10:00 05/07/25 10:00 05/07/25 10:00
Intake and Output
05/06/25 05/07/25 05/08/25
06:59 06:59 06:59
Intake Total 1120 / 1120 1240 / 1245 485 / 485
Output Total 1825 / 1825 1925 / 1925 900 / 900
Balance -705 / -705 -685 / -680 -415 / -415
SaO2 96
Nasal Cannula flow liters per 2
minute
Physical Exam
General: Respiratory Distress (negative), Comfortable and Chills (negative)
HEENT: Normocephalic and Anicteric
Cardiovascular: Irregular Rhythm (Irregularly irregular. Tachycardia into 120s to 140s during my evaluation), Peripheral Edema (+1 lower extremity pedal edema bilaterally) and Other (Tachycardic)
Respiratory: Wheeze (negative), Crackles (None), Rhonchi (negative), Non-Labored Respirations, Stridor (negative) and Other (Diminished breath sounds bilaterally)
GI: Soft, Distended (Abdominal obesity), Non Tender and Normal Bowel Sounds
Neurology: Awake, Alert, Oriented and Tremors (negative)
Skin: Warm, Dry, Cyanosis (negative) and Jaundice (negative)
Labs/Micro/Reports
Lab Data
05/07/25 03:07
05/07/25 03:07
Microbiology
05/03/25 13:13 Blood/Venous Blood Culture - Preliminary
No Growth in 72 hours- Final report to follow
05/04/25 12:54 Urine Urine Culture - Final
NO GROWTH
[2025-05-07] MEDS: SPIRIVA RESPIMAT 2.5 MCG 2 PUFF INH (13:54)
--- NOTE | 2025-05-07 14:31 | PTCARENOTE ---
Addendum entered by Siomara Pena RN 05/07/25 14:49:
will transfer patient to IMU floor and Dr. Mayers to add Dig.
Original Note:
patient continues to have elevated HR oob to chair, eriberto gtt at max of 15. Notified Dr. Mayers. patient was assessed by physician. plan to set up cardioversion.
--- NOTE | 2025-05-07 14:54 | W.PN.UPDATE ---
Update Note
Progress Note Update
Patient reevaluated. Heart rates remain difficult to control. She remains on IV Cardizem. Start digoxin 125 mcg IV now and 125 mcg p.o. daily starting tomorrow. We did discuss consideration for cardioversion tomorrow and she was agreeable to
this. If she does not convert, she could be considered for further antiarrhythmic therapy. She did not tolerate amiodarone in the past. Discussed with her daughter and answered all questions.
Will review with pulmonary regarding her pulmonary status for propofol.
Discussed with nursing.
[2025-05-07] MEDS: LANOXIN 125 MCG IV (16:24)
[2025-05-07] MEDS: FARXIGA 10 MG PO (18:07)
--- NOTE | 2025-05-07 19:38 | PTCARENOTE ---
received pt as transfer from icu( IMU overflow) nurse Erma. no changes in assessment as reported. pt in afib with hr generally in low 100s but up to 140 at times with exertion. pt rports dyspnea on exertion and orthopnea. o2 at 3 liters with
sat in 90s. cardizem drip infusing at 15 mg/hr. family at bedside. pt for cardioversion in am. discussed npo after mn status with pt and relayed that she may take po meds with sips of clear liquids. oriented to room and callbell in reach.
--- NOTE | 2025-05-07 22:36 | PTCARENOTE ---
remains on iv cardizem gtt at 15ml/hr. HR 110-120. Plans for cardioversion in AM. NPO after MN.
[2025-05-08] VITALS (13 sets, daily range): BP systolic 99–128; BP diastolic 56–93; BMI 28.7
[2025-05-08] MEDS: CARDIZEM 125 IV ×2 (03:28→19:33)
[2025-05-08 05:12] LABS: Blood Urea Nitrogen 38 mg/dl (7-17); Calcium 10.2 mg/dl (8.4-10.2); Chloride 95 mmol/L (98-107); Estimated Creatinine Clearance 68 ml/min; Glucose 96 mg/dl (70-99); Potassium 4.6 mmol/L (3.5-5.1); Sodium 139 mmol/L (135-145); eGFR > 60.00
[2025-05-08 05:54] LABS: Carbon Dioxide 40 mmol/L (22-30)
[2025-05-08] MEDS: SPIRIVA RESPIMAT 2.5 MCG 2 PUFF INH (07:33)
[2025-05-08] MEDS: VIBRAMYCIN 100 MG PO ×2 (07:52→19:32)
[2025-05-08] MEDS: CARDIZEM CD 240 MG PO ×2 (07:52→19:31)
[2025-05-08] MEDS: ELIQUIS 5 MG PO ×2 (07:52→19:32)
[2025-05-08] MEDS: VITAMIN B-12 1000 MCG PO (07:52)
[2025-05-08] MEDS: DELTASONE 30 MG PO (07:52)
[2025-05-08] MEDS: THERAGRAN 1 TABLET PO (07:52)
[2025-05-08] MEDS: VITAMIN D3 (cholecalciferol) 50 MCG PO (07:52)
[2025-05-08] MEDS: LIPITOR 10 MG PO (07:52)
[2025-05-08] MEDS: LASIX 40 MG IV (07:53)
--- NOTE | 2025-05-08 10:10 | W.PN.HOSP.TC ---
Today's Communication/Plan
-
Hold further IV Lasix
4 doses of Diamox ordered
BMP tomorrow before starting p.o. Lasix
Cardioversion today
Assessment / Plan
Assessment / Plan
79-year-old admitted with shortness of breath
CT of the chest abdomen pelvis-05/03/2025-limited study. No findings of pneumonia pleural effusion or any gross abnormalities. Distal colonic diverticulosis. Pattern of centrilobular emphysema
CVS: S1-S2 irregular
Chest: few rales
Abdomen: Soft, NT / Bowel sounds present
Extremities: No edema
Echo 05/06/2025-no significant changes since June. Mildly dilated aortic root 3.8 cm. Ascending aorta 3.8 cm. Normal LV size. Mild concentric LVH. EF 50 to 55%. Adequate leaflet excursion. Mild AI. Mild TR. PA pressure 37 mmHg
# Acute on chronic hypoxic respiratory failure-on 2 L of oxygen at baseline
Weaned off of BiPAP to nasal cannula oxygen
COVID and influenza negative. Blood cultures negative
Likely secondary to acute COPD exacerbation and heart failure
# Sepsis ruled out
Lactic acidosis-better
CT of the chest-without any acute changes or infection
# COPD exacerbation
Continue Doxy
Taper steroids
On Spiriva as outpatient
# Acute on chronic HFpEF-BNP 2089
On Lasix 20 mg p.o. daily as outpatient-discontinue Lasix 40 mg IV daily
Bicarb is up to 40 therefore we will do Diamox 4 doses
Lasix to be ordered p.o. tomorrow, after BMP
Continue Farxiga
Continue intake output charting
Echo as above
Cardiology following
# Atrial fibrillation with RVR
On Eliquis and Cardizem 360 mg daily, metoprolol 25 mg daily as outpatient
Continue Eliquis
Continue midodrine
Cardizem gtt still running. Cardizem increased to 240 mg twice daily
Beta-blockers discontinued
Plan is for cardioversion today as rate control has been difficult
# Abnormal urinalysis-cultures negative
# Hyperlipidemia will continue atorvastatin
# Known thoracic aortic aneurysm
# Osteoporosis-on alendronate 70 mg on Mondays
# Colonic diverticulosis
# History of nephrolithiasis
# Ex-smoker
# DVT prophylaxis-Eliquis
# DNR
D/W Daughter at bed side
Discussed with cardiology-Dr. Mayers
Discussed with nursing
Part of this note was created using voice recognition system. Occasional wrong word or��sound alike� substitutions may have inadvertently occurred due to the inherent limitations of voice recognition software. If noted kindly bring it to my
attention for correction.
Anticipated Discharge: 24 - 48 hours
Subjective/Interval History
-
Date of Service: May 08, 2025
Objective Data
-
Labs:
Laboratory Results
05/08/25
04:07
Sodium 139
Potassium 4.6
Chloride 95 L
Carbon Dioxide 40 H
BUN 38 H
Creatinine 0.6
Glucose 96
Calcium 10.2
Vital Signs:
Vital Signs
Temp Pulse Resp BP Pulse Ox
97.8 F 117 18 114/70 96
05/08/25 03:00 05/08/25 07:38 05/08/25 07:38 05/08/25 06:00 05/08/25 08:01
I&O
05/07/25 05/08/25 05/09/25
06:59 06:59 06:59
Intake Total 1240 / 1245 615 / 615
Output Total 1924 900 / 900
Balance -685 / -680 -285 / -285
--- NOTE | 2025-05-08 11:29 | W.PN.CARDCBS ---
Today's Communication / Plan
-
Diltiazem/digoxin for rate control of AFib
Attempt at DCCV today if schedule allows
Transition to PO lasix
Impression / Plan
-
Show Dog Trainer: Dr. Mayers
Impression:
Persistent atrial fibrillation currently in rapid ventricular response on Eliquis
Acute hypoxic respiratory failure, multifactorial
Acute on chronic heart failure with preserved ejection fraction
Acute COPD exacerbation
Concern for infection with Leukocytosis and elevated procalcitonin/ lactic acid
Chronic hypercapnic respiratory failure, chronic nocturnal hypoxemia on home O2
Bilateral carotid artery disease
Mild dilatation of aortic root
Echo May 06 2025: Compared to a prior transthoracic echocardiogram study from June 2024 no significant changes are seen. Mildly dilated aortic root with Sinus of Valsalva measuring 3.8 cm. sinotubular junction mesures 3.7 cm. and ascending aorta
measures 3.8 cm.Normal left ventricular size. Overall, preserved left ventricular systolic function. Mild concentric left ventricular hypertrophy. No regional wall motion abnormalities. Left ventricular ejection fraction is 50-55% by visual
estimate. Mild AR, mild TR, PASP 37 mmHg
Echo Jun 2024: Normal biventricular size and systolic function with EF estimated 60 to 65%. No significant valve disease with mild AI and trace MR/TR. Estimated pulmonary artery pressure 25-30 mmHg. Sinus of Valsalva 3.7 cm, proximal ascending
aorta 4 cm. No pericardial effusion
CT of the chest angio October 2024: Mid ascending aorta 4 cm which is considered top normal and stable. Mild dilation of the aortic root: Sinus of Valsalva 4.2 cm. Left dominant coronary circulation with moderate to severe coronary artery
calcifications. No pulmonary embolism. No left atrial thrombus. No significant narrowing of the origins of the great vessels from the thoracic aorta. No significant dilatation of the aortic arch or descending thoracic aorta. No significant
dilatation of the upper abdominal aorta. Moderate to severe emphysema with mild to moderate by lateral apical pleural-parenchymal scarring. No lung mass. Moderate increase in thoracic kyphosis
-Carotid ultrasound 01/10/2019: Bilateral plaque but no significant ICA disease. She is scheduled as an outpatient for repeat carotid duplex
Plan:
Remains in atrial fibrillation with difficult to control rates
Cont cardizem CD to 240 mg BID (She was taking Cardizem CD 360 mg daily at outpt)
New to digoxin
Plan to attempt cardioversion later today as schedule allows
Continue Eliquis for stroke prophylaxis which they tell me she has been reliably taking
Midodrine was already added this admission for blood pressure support
Wt down considerably
Switch Lasix from IV to 20mg daily and continue on discharge
Echo shows preserved LV function without high grade valve disease and similar to prior echo from Jun 2024
Continue GDMT including Farxiga 10 mg daily
Coronary artery disease on CT imaging without chest pain.
Continue medical therapy.
Mild aortic root and thoracic aortic enlargement
Stable on CT imaging.
Concern for infection with leukocytosis, elevated lactate and procalcitonin/COPD exacerbation
-Influenza and COVID negative. Cultures so far no growth to date
-Management per primary team/pulmonary
Discussed with daughter at bedside.
Progress Note - Show Dog Trainer
Subjective
Date of Service: May 08, 2025
No acute overnight events. Patient remains in rapid atrial fibrillation today.
Objective
Labs:
05/07/25 03:07
05/08/25 04:07
Labs
Hgb 15.1 g/dL (12.0-16.0) 05/07/25 03:07
Hct 47.4 % (37.0-47.0) H 05/07/25 03:07
Plt Count 223 10^3/uL (130-400) 05/07/25 03:07
PT 22.2 Sec (11.4-14.6) H 05/04/25 04:03
INR 1.93 05/04/25 04:03
APTT 44.7 Sec (23.4-35.0) H 05/04/25 04:03
Sodium 139 mmol/L (135-145) 05/08/25 04:07
Potassium 4.6 mmol/L (3.5-5.1) 05/08/25 04:07
BUN 38 mg/dl (7-17) H 05/08/25 04:07
Creatinine 0.6 mg/dL (0.6-1.0) 05/08/25 04:07
Glucose 96 mg/dl (70-99) 05/08/25 04:07
Vital Signs and I&O:
Vital Signs
Temp Pulse Resp BP Pulse Ox
97.8 F 117 18 114/70 96
05/08/25 03:00 05/08/25 07:38 05/08/25 07:38 05/08/25 06:00 05/08/25 08:01
Vital Signs
Temp Pulse Resp BP Pulse Ox
97.8 F 117 18 114/70 96
05/08/25 03:00 05/08/25 07:38 05/08/25 07:38 05/08/25 06:00 05/08/25 08:01
Intake & Output
05/06/25 05/07/25 05/08/25 05/09/25
06:59 06:59 06:59 06:59
Intake Total 1120 / 1120 1240 / 1245 615 / 615
Output Total 1825 / 1825 1925 / 1925 900 / 900
Balance -705 / -705 -685 / -680 -285 / -285
Physical Exam
Physical Exam
Gen: NAD, AAOx3
HEENT: NC/AT, sclera anicteric
Neck: No JVD
CV: irregularly irregular, NL s1/s2
Lungs: Scattered rhonchi on 4L NC
Abd: S/ND
Ext: No LE edema
Skin: Warm, dry
Neuro: Non-focal
--- NOTE | 2025-05-08 13:50 | W.CARD.TIKOS ---
Initiate Tikosyn
-
I verify that the patient has not taken any verapamil (Isoptin/Calan), ketoconazole (Nizoral), cimetidine (Tagamet), trimethoprim (Trimpex), trimethoprim/sulfamethoxazole (Bactrim), megesterol (Megace), prochlorperazine (Compazine),
hydrochlorothiazide (HCTZ), dolutegravir (Tivicay) or any Class I or Class III anti-arrhythmic within the last three days
AND
I verify that the patient has not taken amiodarone within the last THREE months, or that the patient's amiodarone plasma concentration is <0.3 mcg/mL.
Creatinine 0.6 mg/dL (0.6-1.0) 05/08/25 04:07
Estimated Creat Clear 68 ml/min 05/08/25 04:07
CrCl 82
Does patient have a Ventricular Conduction Abnormality: No
I have assessed the baseline QTc interval (using QT for heart rate less than 60 bpm) and deemed the patient is appropriate for Dofetilide therapy. I understand that Tikosyn is contraindicated if the QTc is >440msec (500msec in patients with
ventricular conduction abnormalities).
Baseline QTc (in msec): 420
Ordering Physician: Other (Dr. Lamont Anne)
--- NOTE | 2025-05-08 13:51 | W.PN.UPDATE ---
Update Note
Progress Note Update
Patient and daughter updated at the bedside, patient remains in A-fib with RVR. Reviewed with patient and daughter options including short-term and long-term plan of Tikosyn loading now and then follow-up with EP as an outpatient to discuss ongoing
AAD therapy versus attempt at ablation. We reviewed Tikosyn loading procedure including following ECGs for QT prolongation. Questions were answered and patient and daughter are agreeable to begin Tikosyn tonight, orders placed by me.
[2025-05-08] MEDS: LANOXIN 125 MCG PO (13:54)
[2025-05-08] MEDS: DIAMOX 250 MG PO ×2 (13:54→22:39)
--- NOTE | 2025-05-08 14:50 | CM ---
F/U: Patient remains in A-fib. Hospital Team asked to eddy a medication, but decided to hold off on this as patient might go to the IVU. PT/OT recommending Home Health, but will not refer until patient is closer to DC and also PT/OT might be
consulted again. PLAN: Home PT vs. SNF.
--- NOTE | 2025-05-08 16:41 | PTCARENOTE ---
Received into room 2246 from [facility]. AOx3, pleasant. Afib on telemetry, HR 100-130s. Received w/ diltiazem gtt infusing at 15mg/hr. Confirmed w/ Belal OWEN that diltiazem is to continue when Tikosyn load starts tonight. Updated patient on plan. Left w/
call mao in reach.
[2025-05-08] MEDS: FARXIGA 10 MG PO (17:12)
[2025-05-08] MEDS: TIKOSYN 500 MCG PO (19:32)
[2025-05-09] VITALS (11 sets, daily range): BP systolic 97–122; BP diastolic 55–85; PULSE 105–133; O2SAT 96; BMI 28.7
--- NOTE | 2025-05-09 00:15 | PTCARENOTE ---
Assumed care of patient w/ daughter (Loli) at bedside.Tele remains Afib, HR in the 90-110's at rest. Patient requires 1-2 assist when OOB, and was a turn and pivot to BS. Denies any lightheadedness. HR increased to the 130-150's w/ ambulation. Pt
HERNÁNDEZ, remains on 4L of O2. Lungs decreased in the bases. IV Cardizem gtt remains at 15mg/HR, BP stable. Patient had a brown formed stool w/ 2 small blood clots. While wiping patient she had bloody drainage on cloths. Patient reports she has hx of
hemorrhoids and that this is the first BM shes had in 2 days. Questionable if patient strained during bowel movement. Bin ESCOBAR made aware, orders obtained for CBC to be drawn w/ AM labs. Call mao within reach.
[2025-05-09] MEDS: CARDIZEM 125 IV ×2 (04:20→14:29)
[2025-05-09 04:40] LABS: Hematocrit 48.8 % (37.0-47.0); Hemoglobin 16.0 g/dL (12.0-16.0); Mean Corp Hgb Conc. 32.8 g/dL (33.0-37.0); Mean Corpuscular Volume 99.8 fL (81.0-99.0); Platelet Count 221 10^3/uL (130-400); Red Cell Dist. Width 12.9 % (11.5-14.5)
[2025-05-09 05:00] LABS: Blood Urea Nitrogen 29 mg/dl (7-17); Calcium 10.0 mg/dl (8.4-10.2); Chloride 97 mmol/L (98-107); Estimated Creatinine Clearance 51 ml/min; Glucose 108 mg/dl (70-99); Potassium 3.9 mmol/L (3.5-5.1); Sodium 136 mmol/L (135-145); eGFR > 60.00
[2025-05-09 05:49] LABS: Carbon Dioxide 40 mmol/L (22-30)
[2025-05-09] MEDS: SPIRIVA RESPIMAT 2.5 MCG 2 PUFF INH (07:23)
[2025-05-09] MEDS: VITAMIN B-12 1000 MCG PO (08:00)
--- NOTE | 2025-05-09 08:15 | W.PN.CARDCBS ---
Addendum entered and electronically signed by Viji Hung MD 05/09/25 10:46:
I saw and examined the patient.
The Sign Out Clerk's note was reviewed and I agree with the note.
Comment: She is sitting comfortably in the bed currently admitted with acute hypoxemic respiratory failure in the setting of significant COPD, pneumonia and acute heart failure. Volume status currently stable.
She had unsuccessful attempted cardioversion 05/08/2025 and then remained in A-fib/atrial flutter with rapid ventricular response. She has been amiodarone and intolerant in plan was to start dofetilide while she is inpatient. Rates of atrial
fibrillation have been difficult to control but patient states she does not notice. Currently heart rates are fair around 100 bpm.
Plan at this time:
- Oral anticoagulation and rate control of atrial arrhythmia
- Given drug to drug interaction digoxin has been discontinued
- Switch IV diltiazem to oral diltiazem
- Continue dofetilide load. Await next EKG
- Caution with the use of acetazolamide. Watch electrolytes including magnesium very closely. Replete as needed with goal potassium greater than 4 magnesium greater than 2 while on dofetilide.
- She has diuresed and continues now on oral Lasix with stable weight. Follow. proBNP 05/03/2025 was 2089.
- Continue pulmonary recommendations/treatment
-Antibiotic treatment per primary service
- Incentive spirometer and increase activity
Original Note:
Today's Communication / Plan
-
Wean Cardizem gtt
Continue new dose of Cardizem CD 240 mg BID
Digoxin stopped
Follow-up on ECG following 2nd dose of Tikosyn 500 mcg given this morning
Continue Eliquis
Impression / Plan
-
PCP: Dr. Sweeney
pool attendant: Dr. Mayers
Impression:
Admitted with acute hypoxic respiratory failure in the setting of AE COPD, PNA and acute HF 05/03/2025
Acute hypoxic respiratory failure, multifactorial
Persistent atrial fibrillation and typical atrial flutter currently in rapid ventricular response
s/p unsuccessful CV 05/08/2025
Chronic Eliquis OAC
New start to chronic Tikosyn therapy 05/08/2025
Acute on chronic HFpEF
AE COPD
Concern for infection with Leukocytosis and elevated procalcitonin/ lactic acid
Chronic hypercapnic respiratory failure, chronic nocturnal hypoxemia on home O2 at 2 L NC
Bilateral carotid artery disease
Mild dilatation of aortic root
Echo 05/06/2025: Compared to a prior transthoracic echocardiogram study from June 2024 no significant changes are seen. Mildly dilated aortic root with Sinus of Valsalva measuring 3.8 cm. sinotubular junction mesures 3.7 cm. and ascending aorta
measures 3.8 cm.Normal left ventricular size. Overall, preserved left ventricular systolic function. Mild concentric left ventricular hypertrophy. No regional wall motion abnormalities. Left ventricular ejection fraction is 50-55% by visual
estimate. Mild AR, mild TR, PASP 37 mmHg
Echo Jun 2024: Normal biventricular size and systolic function with EF estimated 60 to 65%. No significant valve disease with mild AI and trace MR/TR. Estimated pulmonary artery pressure 25-30 mmHg. Sinus of Valsalva 3.7 cm, proximal ascending
aorta 4 cm. No pericardial effusion
Plan:
- Patient had unsuccessful attempted CV on 05/08/2025 then remained in A-fib with RVR. Talked with patient and daughter in the room on 05/08/2025 about options for antiarrhythmic drug, patient was previously intolerant to amiodarone. We made a
plan to start Tikosyn 500 mcg every 12 hours
-QTc 538 ms following 1st dose of Tikosyn that was given Tuesday night, but visually appears shorter and calculation is likely due to being in atrial flutter with variable block and evidence of aberrancy
-Follow-up on ECG following 2nd dose of Tikosyn morning
-Cardizem gtt running at 15 mg, weaning parameters placed by me and dose lowered to 10 mg 05/09/2025 AM, plan is to wean drip to off on 05/09/2025.
-Continue Cardizem CD 240 mg BID, of note patient was taking Cardizem CD 360 mg daily prior to admission
-Outpatient dose of Eliquis 5 mg BID (age 79, Cre 0.8, wt 71.1 kg) has been continued
-Digoxin started and stopped this admission, digoxin stopped 05/09/2025
-If patient fails to spontaneously convert to SR not clear that she is ready for another attempt given ongoing oxygen demands and treatment for multifactorial acute on chronic hypoxic respiratory failure
-Weight is down 8 lbs with IV diuresis so far this admission. Patient was diuresed with Lasix 20 mg IV daily initially and now transitioned to her usual outpatient dose of Lasix 20 mg PO daily.
-EF preserved at 50 to 55% by echo 05/06/2025
-Patient is not chronically on BB due to COPD and reactive airway disease
-Patient is not chronically on AMITA/ARB/ARNI/aldosterone antagonist due to hypotension
-Patient is new to midodrine 2.5 mg TID this admission
-Outpatient dose of Farxiga 10 mg daily has been continued
-4 doses of acetazolamide ordered by hospitalist attending
Progress Note - Archery Equipment Repairer
Subjective
Date of Service: May 09, 2025
Patient feels better today with improved HR control, daughter at the bedside
Objective
Labs:
05/09/25 04:18
05/09/25 04:18
Labs
Hgb 16.0 g/dL (12.0-16.0) 05/09/25 04:18
Hct 48.8 % (37.0-47.0) H 05/09/25 04:18
Plt Count 221 10^3/uL (130-400) 05/09/25 04:18
PT 22.2 Sec (11.4-14.6) H 05/04/25 04:03
INR 1.93 05/04/25 04:03
APTT 44.7 Sec (23.4-35.0) H 05/04/25 04:03
Sodium 136 mmol/L (135-145) 05/09/25 04:18
Potassium 3.9 mmol/L (3.5-5.1) 05/09/25 04:18
BUN 29 mg/dl (7-17) H 05/09/25 04:18
Creatinine 0.8 mg/dL (0.6-1.0) 05/09/25 04:18
Glucose 108 mg/dl (70-99) H 05/09/25 04:18
Vital Signs and I&O:
Vital Signs
Temp Pulse Resp BP Pulse Ox
98.1 F 117 18 97/61 97
05/09/25 07:04 05/09/25 07:35 05/09/25 07:35 05/09/25 07:04 05/09/25 07:35
Vital Signs
Temp Pulse Resp BP Pulse Ox
98.1 F 117 18 97/61 97
05/09/25 07:04 05/09/25 07:35 05/09/25 07:35 05/09/25 07:04 05/09/25 07:35
Intake & Output
05/07/25 05/08/25 05/09/25 05/10/25
06:59 06:59 06:59 06:59
Intake Total 1240 / 1245 615 / 615 990 / 990
Output Total 1925 / 1925 900 / 900 1100 / 1100
Balance -685 / -680 -285 / -285 -110 / -110
Physical Exam
Physical Exam
GEN: AAO x 3
LUNGS: 2 L NC. No audible wheeze
CV: A-fib on telemetry
EXT: No edema
[2025-05-09] MEDS: DIAMOX 250 MG PO ×2 (08:19→19:37)
[2025-05-09] MEDS: THERAGRAN 1 TABLET PO (08:19)
[2025-05-09] MEDS: DELTASONE 30 MG PO (08:20)
[2025-05-09] MEDS: LIPITOR 10 MG PO (08:20)
[2025-05-09] MEDS: VIBRAMYCIN 100 MG PO ×2 (08:21→19:37)
[2025-05-09] MEDS: ELIQUIS 5 MG PO ×2 (08:21→19:37)
[2025-05-09] MEDS: VITAMIN D3 (cholecalciferol) 50 MCG PO (08:22)
[2025-05-09] MEDS: LASIX 20 MG PO (08:22)
[2025-05-09] MEDS: TIKOSYN 500 MCG PO (08:51)
[2025-05-09] MEDS: CARDIZEM CD 240 MG PO ×2 (08:52→19:37)
[2025-05-09] MEDS: KCL 40 MEQ PO (12:19)
--- NOTE | 2025-05-09 13:43 | W.PN.HOSP.TC ---
Today's Communication/Plan
-
Prednisone to be tapered to 20 mg
Continue Tikosyn load
Assessment / Plan
Assessment / Plan
79-year-old admitted with shortness of breath
CT of the chest abdomen pelvis-05/03/2025-limited study. No findings of pneumonia pleural effusion or any gross abnormalities. Distal colonic diverticulosis. Pattern of centrilobular emphysema
CVS: S1-S2 irregular
Chest: few rales
Abdomen: Soft, NT / Bowel sounds present
Extremities: No edema
Echo 05/06/2025-no significant changes since June. Mildly dilated aortic root 3.8 cm. Ascending aorta 3.8 cm. Normal LV size. Mild concentric LVH. EF 50 to 55%. Adequate leaflet excursion. Mild AI. Mild TR. PA pressure 37 mmHg
# Acute on chronic hypoxic respiratory failure-on 2 L of oxygen at baseline
Weaned off of BiPAP to nasal cannula oxygen
COVID and influenza negative. Blood cultures negative
Likely secondary to acute COPD exacerbation and heart failure
# Sepsis ruled out
Lactic acidosis-better
CT of the chest-without any acute changes or infection
# COPD exacerbation
Continue Doxy
Taper steroids- 20 mg starting tomorrow
On Spiriva as outpatient
# Acute on chronic HFpEF-BNP 2089
On Lasix 20 mg p.o. daily as outpatient-discontinued Lasix 40 mg IV daily
Bicarb is up to 40 therefore we will do Diamox 4 doses
Lasix 20 mg
Continue Farxiga
Continue intake output charting
Echo as above
Cardiology following
# Atrial fibrillation with RVR
On Eliquis and Cardizem 360 mg daily, metoprolol 25 mg daily as outpatient
Continue Eliquis
Continue midodrine
Cardizem gtt still running. Cardizem increased to 240 mg twice daily
Beta-blockers discontinued
Failed cardioversion on 05/08/2025
Tikosyn load started on 05/08/2025
# Abnormal urinalysis-cultures negative
# Hyperlipidemia will continue atorvastatin
# Known thoracic aortic aneurysm
# Osteoporosis-on alendronate 70 mg on Mondays
# Colonic diverticulosis
# History of nephrolithiasis
# Ex-smoker
# DVT prophylaxis-Eliquis
# DNR
D/W Daughter at bed side
Discussed with nursing
Part of this note was created using voice recognition system. Occasional wrong word or��sound alike� substitutions may have inadvertently occurred due to the inherent limitations of voice recognition software. If noted kindly bring it to my
attention for correction.
Anticipated Discharge: 24 - 48 hours
Subjective/Interval History
-
Date of Service: May 09, 2025
Objective Data
-
Labs:
Laboratory Results
05/09/25
04:18
WBC 11.8 H
Hgb 16.0
Hct 48.8 H
Plt Count 221
Sodium 136
Potassium 3.9
Chloride 97 L
Carbon Dioxide 40 H
BUN 29 H
Creatinine 0.8
Glucose 108 H
Calcium 10.0
Vital Signs:
Vital Signs
Temp Pulse Resp BP Pulse Ox
97.5 F 90 20 106/85 95
05/09/25 12:08 05/09/25 13:00 05/09/25 12:08 05/09/25 12:03 05/09/25 12:08
I&O
05/08/25 05/09/25 05/10/25
06:59 06:59 06:59
Intake Total 615 / 615 990 / 990
Output Total 900 / 900 1100 / 1100 500 / 500
Balance -285 / -285 -110 / -110 -500 / -500
--- NOTE | 2025-05-09 14:07 | PTCARENOTE ---
Patient out of bed in chair. A-fib HR 88. [place] removed. Cardizem gtt at 10 mg/hr. Oxygen at 2 liters NC, breath sounds at bases, no shortness of breath at rest. Call mao in reach
--- NOTE | 2025-05-09 15:35 | CM ---
spoke to pt in room, she uses [facility] to call for dofetilide cost and availibility tomorrow. she is prev indep, lives withher daughter and RED in a 2 story home with a first floor set up and 2 steps to enter. she uses home O2- [employer],
2 Liters HS and PRN. plan is for dc to home when medically stable.
[2025-05-09] MEDS: FARXIGA 10 MG PO (17:32)
--- NOTE | 2025-05-09 21:41 | PTCARENOTE ---
Tele remains Afib, HR increased w/ activity to 140-150 bpm. Denies any chest discomfort. Patient remains HERNÁNDEZ, sating 97% on 2L of O2. Lungs decreased in the right base. Patient had a BM and bright red blood was present in the toilet, unmeasurable
amount. Pt w/ known hemorrhoids. Fall risk precautions maintained, call mao within reach.
Clarified Tikosyn medication w/ Dr. Fabricio Hung d/t previous ekg result showed a QTc of 558.
Orders obtained to hold 20:00 Tikosyn dose tonight, and resume medication in AM at a decrease dose of 250mcg. See MAR for further details. Reviewed POC w/ patient.
[2025-05-10] VITALS (9 sets, daily range): BP systolic 99–116; BP diastolic 62–83; BMI 28.4
[2025-05-10] MEDS: CARDIZEM 125 IV ×2 (02:09→13:38)
[2025-05-10 03:19] LABS: Blood Urea Nitrogen 32 mg/dl (7-17); Calcium 10.0 mg/dl (8.4-10.2); Carbon Dioxide 39 mmol/L (22-30); Chloride 97 mmol/L (98-107); Estimated Creatinine Clearance 45 ml/min; Glucose 101 mg/dl (70-99); Magnesium 2.0 mg/dl (1.6-2.3); Potassium 4.0 mmol/L (3.5-5.1); Sodium 136 mmol/L (135-145); eGFR > 60.00
[2025-05-10] MEDS: SPIRIVA RESPIMAT 2.5 MCG 2 PUFF INH (08:05)
[2025-05-10] MEDS: ELIQUIS 5 MG PO ×2 (08:59→20:23)
[2025-05-10] MEDS: VITAMIN B-12 1000 MCG PO (08:59)
[2025-05-10] MEDS: THERAGRAN 1 TABLET PO (08:59)
[2025-05-10] MEDS: CARDIZEM CD 240 MG PO ×2 (09:00→20:23)
[2025-05-10] MEDS: DELTASONE 20 MG PO (09:00)
[2025-05-10] MEDS: VIBRAMYCIN 100 MG PO ×2 (09:00→20:23)
[2025-05-10] MEDS: LIPITOR 10 MG PO (09:00)
[2025-05-10] MEDS: TIKOSYN 250 MCG PO ×2 (09:00→21:09)
[2025-05-10] MEDS: LASIX 20 MG PO (09:01)
[2025-05-10] MEDS: VITAMIN D3 (cholecalciferol) 50 MCG PO (09:01)
--- NOTE | 2025-05-10 09:28 | W.PN.CARDCBS ---
Addendum entered and electronically signed by Viji Hung MD 05/10/25 12:30:
I saw and examined the patient.
The [employer] Signal Officer's note was reviewed and I agree with the note.
Comment:
Feeling fatigued. Daughter at the bedside. Just vomited and had nausea.
General: Fatigued appearing
Heart: Irregularly irregular
Lungs: Oxygen in place with coarse breath sounds
Extremities: No clubbing, cyanosis and trace edema bilaterally.
Impression:
Acute hypoxemic respiratory failure multifactorial COPD, pneumonia and acute heart failure
Sepsis improved
Persistent atrial fibrillation and typical atrial flutter
Unsuccessful cardioversion 05/08/2025
New start to dofetilide 05/08/2025 dose reduced from 500 mcg twice daily to 250 mcg twice daily (no dose 05/09/2020 5 PM, vomited dose AM)
On diltiazem IV drip wean
Plan:
Continue ongoing efforts with pulmonary status, mobility and weaning oxygen as tolerates. Continue treatment of infection.
Atrial fibrillation with fair rate control. Digoxin discontinued yesterday. Decreasing IV diltiazem in favor of oral diltiazem and dofetilide. Unfortunately vomited this morning. Tikosyn dose reduced as noted yesterday.
Continue dofetilide 250 mcg twice daily.
Follow EKGs
Continue oral anticoagulation
Plan for cardioversion on Tuesday hopefully will be more successful. Discussed with patient and her daughter at great length.
Follow telemetry. Telemetry stable.
Episode of nausea and vomiting managed by primary service.
Original Note:
Today's Communication / Plan
-
Reduced dose of Tikosyn to 250 mcg twice daily
Continue to monitor and follow QTc closely
Ongoing attempts to wean diltiazem drip
Continue oral diltiazem 240 twice daily and Eliquis
Continue to monitor renal function and electrolytes daily
Impression / Plan
-
PCP: Dr. Sweeney
immigration case worker: Dr. Mayers
Impression:
Admitted with acute hypoxic respiratory failure in the setting of AE COPD, PNA and acute HF 05/03/2025
Acute hypoxic respiratory failure, multifactorial
Persistent atrial fibrillation and typical atrial flutter
s/p unsuccessful CV 05/08/2025
New start to chronic Tikosyn therapy 05/08/2025
Chronic Eliquis OAC
Acute on chronic HFpEF, proBNP 2089
AE COPD
Concern for infection with Leukocytosis and elevated procalcitonin/ lactic acid
Chronic hypercapnic respiratory failure, chronic nocturnal hypoxemia on home O2 at 2 L NC
Bilateral carotid artery disease
Mild dilatation of aortic root
Echo 05/06/2025: Compared to a prior transthoracic echocardiogram study from June 2024 no significant changes are seen. Mildly dilated aortic root with Sinus of Valsalva measuring 3.8 cm. sinotubular junction mesures 3.7 cm. and ascending aorta
measures 3.8 cm.Normal left ventricular size. Overall, preserved left ventricular systolic function. Mild concentric left ventricular hypertrophy. No regional wall motion abnormalities. Left ventricular ejection fraction is 50-55% by visual
estimate. Mild AR, mild TR, PASP 37 mmHg
Echo Jun 2024: Normal biventricular size and systolic function with EF estimated 60 to 65%. No significant valve disease with mild AI and trace MR/TR. Estimated pulmonary artery pressure 25-30 mmHg. Sinus of Valsalva 3.7 cm, proximal ascending
aorta 4 cm. No pericardial effusion
Plan:
-Admitted with acute hypoxic respiratory failure in the setting of AE COPD, PNA and acute HF 05/03/2025
-Respiratory status is improving. Patient now down to 1 L of oxygen via nasal cannula. She does use oxygen at home. Continue antibiotics per primary service
- Patient had unsuccessful attempted CV on 05/08/2025 then remained in A-fib with RVR. Cardiology PA-C talked with patient and daughter in the room on 05/08/2025 about options for antiarrhythmic drug, patient was previously intolerant to
amiodarone. Initiated on Tikosyn 500 mcg every 12 hours 05/08 in am. After second dose QTc increased to 558 ms and Tikosyn dose for 05/09 in PM held.
- ECG 05/10 am with QTc 447 ms. Will give lower dose of 250 mcg (05/10 am will be third dose). Continue to monitor QTc per protocol
-Cardizem gtt running at 10 mg/hr, decreased dose to 5 mg/hr 05/10/2025 with attempts of weaning off within the next 14 hours
-Continue Cardizem CD 240 mg BID, of note patient was taking Cardizem CD 360 mg daily prior to admission
-Outpatient dose of Eliquis 5 mg BID (age 79, Cre 0.8, wt 71.1 kg) has been continued
-Digoxin started and stopped this admission, digoxin stopped 05/09/2025
-If patient fails to spontaneously convert to SR then could consider repeating CV after 5th dose of Tikosyn. Will need to make sure respiratory status is stable as she is undergoing treatment for multifactorial acute on chronic hypoxic respiratory
failure
-Potassium 4.0, mag 2.0
-Weight is down 9 lbs with IV diuresis so far this admission. Appears euvolemic. Patient was diuresed with Lasix 20 mg IV daily initially and now transitioned to her usual outpatient dose of Lasix 20 mg PO daily.
-EF preserved at 50 to 55% by echo 05/06/2025
-Patient is not chronically on BB due to COPD and reactive airway disease
-Patient is not chronically on AMITA/ARB/ARNI/aldosterone antagonist due to hypotension
-Patient is new to midodrine 2.5 mg TID this admission. Blood pressure continues to be can attempt to wean off midodrine as heart rate improves and with eventual discontinuation of diltiazem drip.
-Outpatient dose of Farxiga 10 mg daily has been continued
-4 doses of acetazolamide ordered by hospitalist attending. Would avoid acetazolamide given potential for electrolyte abnormalities with initiation of Tikosyn. Patient now on Lasix. Appears euvolemic.
Plan discussed with patient patient's daughter at bedside, nursing and hospitalist
Progress Note - Torch Brazer
Subjective
Date of Service: May 10, 2025
Patient seen and examined. Patient's daughter at nursing at bedside. Patient overall reports she is feeling well. She is down to 1 L of oxygen.
Objective
Labs:
05/09/25 04:18
05/10/25 02:23
Labs
Hgb 16.0 g/dL (12.0-16.0) 05/09/25 04:18
Hct 48.8 % (37.0-47.0) H 05/09/25 04:18
Plt Count 221 10^3/uL (130-400) 05/09/25 04:18
PT 22.2 Sec (11.4-14.6) H 05/04/25 04:03
INR 1.93 05/04/25 04:03
APTT 44.7 Sec (23.4-35.0) H 05/04/25 04:03
Sodium 136 mmol/L (135-145) 05/10/25 02:23
Potassium 4.0 mmol/L (3.5-5.1) 05/10/25 02:23
BUN 32 mg/dl (7-17) H 05/10/25 02:23
Creatinine 0.9 mg/dL (0.6-1.0) 05/10/25 02:23
Glucose 101 mg/dl (70-99) H 05/10/25 02:23
Vital Signs and I&O:
Vital Signs
Temp Pulse Resp BP Pulse Ox
97.4 F 108 15 110/74 97
05/10/25 07:40 05/10/25 08:10 05/10/25 08:10 05/10/25 02:17 05/10/25 07:40
Vital Signs
Temp Pulse Resp BP Pulse Ox
97.4 F 108 15 110/74 97
05/10/25 07:40 05/10/25 08:10 05/10/25 08:10 05/10/25 02:17 05/10/25 07:40
Intake & Output
05/08/25 05/09/25 05/10/25 05/11/25
06:59 06:59 06:59 06:59
Intake Total 615 / 615 990 / 990 360 / 360
Output Total 900 / 900 1100 / 1100 800 / 800
Balance -285 / -285 -110 / -110 -440 / -440
Physical Exam
Physical Exam
GEN: No distress, awake, Ox3, sitting in bed on oxygen
HEENT: supple, anicteric, mmm
LUNGS: CTA, no wheezes/rales, oxygen via nasal cannula 1 L/min
CV: Irregularly irregular, S1/S2, 1/6 syst LSB, no murmur
ABD: soft, BS+, NT/ND
EXT: No edema, clubbing or cyanosis
NEURO: Gross non-focal
SKIN: No rash, warm, dry, pink
--- NOTE | 2025-05-10 10:20 | PTCARENOTE ---
Assumed care at 0700. Tikosyn 250 mcg (dose #3) QTC 447. Cardizem gtt decreased to 5mg/hr A-fib HR 98-110, BP 107/74. Oxygen weaned to 1 liter NC 92-94%, lungs CTA, has shortness of breath with eating, takes breaks, purse lip breathing
intermittently. [place] in placed, cloudy yellow urine. Daughter at bedside attentive to her needs
--- NOTE | 2025-05-10 10:36 | PTCARENOTE ---
Called into patient room. Patient vomited a small amount of food while eating breakfast, symptoms did resolve. Care provided, sipping tea
--- NOTE | 2025-05-10 14:19 | CM ---
priced dofetilide with [pts [facility], her copay is ZERO dollars/mo. pharmasict asked that the MD order capsules not tablets, message relayed to XENIA Guzmán
--- NOTE | 2025-05-10 14:42 | PTCARENOTE ---
HR 110-140, Cardizem gtt increased to 10 mg/hr. Notified Lacie Marie.
--- NOTE | 2025-05-10 17:09 | W.PN.HOSP.TC ---
Today's Communication/Plan
-
Tikosyn load
Add Pepcid
Watch on telemetry
Assessment / Plan
Assessment / Plan
79-year-old admitted with shortness of breath
CT of the chest abdomen pelvis-05/03/2025-limited study. No findings of pneumonia pleural effusion or any gross abnormalities. Distal colonic diverticulosis. Pattern of centrilobular emphysema
CVS: S1-S2 irregular
Chest: CTA
Abdomen: Soft, NT / Bowel sounds present
Extremities: No edema
Echo 05/06/2025-no significant changes since June. Mildly dilated aortic root 3.8 cm. Ascending aorta 3.8 cm. Normal LV size. Mild concentric LVH. EF 50 to 55%. Adequate leaflet excursion. Mild AI. Mild TR. PA pressure 37 mmHg
# Acute on chronic hypoxic respiratory failure-on 2 L of oxygen at baseline
Weaned off of BiPAP to nasal cannula oxygen
COVID and influenza negative. Blood cultures negative
Likely secondary to acute COPD exacerbation and heart failure
# Nausea this morning-likely secondary to steroids. Add Pepcid
# Sepsis ruled out
Lactic acidosis-better
CT of the chest-without any acute changes or infection
# COPD exacerbation
Continue Doxy
Taper steroids- 20 mg
On Spiriva as outpatient
# Acute on chronic HFpEF-BNP 2089
On Lasix 20 mg p.o. daily
Lasix 20 mg now
Continue Farxiga
Continue intake output charting
Echo as above
Cardiology following
# Atrial fibrillation with RVR
On Eliquis and Cardizem 360 mg daily, metoprolol 25 mg daily as outpatient
Continue Eliquis
Continue midodrine
Cardizem gtt still running. Cardizem increased to 240 mg twice daily
Beta-blockers discontinued
Failed cardioversion on 05/08/2025
Tikosyn load started on 05/08/2025
Dose reduced to 250 mg as QTc was prolonged
# Abnormal urinalysis-cultures negative
# Hyperlipidemia will continue atorvastatin
# Known thoracic aortic aneurysm
# Osteoporosis-on alendronate 70 mg on Mondays
# Colonic diverticulosis
# History of nephrolithiasis
# Ex-smoker
# DVT prophylaxis-Eliquis
# DNR
D/W Daughter at bed side
Discussed with cardiology
Discussed with nursing
Part of this note was created using voice recognition system. Occasional wrong word or��sound alike� substitutions may have inadvertently occurred due to the inherent limitations of voice recognition software. If noted kindly bring it to my
attention for correction.
Anticipated Discharge: Within 24 hours
Subjective/Interval History
-
Date of Service: May 10, 2025
Objective Data
-
Vital Signs:
Vital Signs
Temp Pulse Resp BP Pulse Ox
97.7 F 120 20 112/83 96
05/10/25 15:41 05/10/25 15:00 05/10/25 15:41 05/10/25 13:33 05/10/25 15:41
I&O
05/09/25 05/10/25 05/11/25
06:59 06:59 06:59
Intake Total 990 / 990 360 / 360 240 / 240
Output Total 1100 / 1100 800 / 800 550 / 550
Balance -110 / -110 -440 / -440 -310 / -310
[2025-05-10] MEDS: FARXIGA 10 MG PO (18:28)
[2025-05-10] MEDS: PEPCID 20 MG PO (20:23)
--- NOTE | 2025-05-10 23:51 | PTCARENOTE ---
Pt rec'd at change of shift with daughter at bedside. OOb x 1 person assist and walker to c. Voided small amt urine-no bm's. afib on telemetry with ht rates high 80's at rest up to 120's with exertion. Cardizem gtt continued at 10 mg/hr. 4th dose
of Tikosyn given with QTc 2 hrs post 449. No further c/o upset stomach or vomiting noted.
[2025-05-11] VITALS (7 sets, daily range): BP systolic 109–130; BP diastolic 68–84; BMI 28.1
[2025-05-11] MEDS: CARDIZEM 125 IV ×3 (01:13→23:15)
--- NOTE | 2025-05-11 07:56 | W.PN.CARDCBS ---
Addendum entered and electronically signed by Landon Scanlon MD 05/11/25 08:31:
Patient seen and examined
Agree with BRAYDEN Marie's note and assessment
Agree with BRAYDEN Marie's plan
QTc reviewed and stabilized�improved on lower dose dofetilide
Exam:
Awake alert and oriented
Nonfocal neurologically
JVP 6
Cor irregularly irregular
Lungs diminished bilaterally
Abdomen soft nontender positive bowel sounds
Trace extremity edema
PCP: Dr. Sweeney
loss prevention and safety manager: Dr. Mayers
Impression:
Admitted with acute hypoxic respiratory failure in the setting of AE COPD, PNA and acute HF 05/03/2025
Acute hypoxic respiratory failure, multifactorial
Persistent atrial fibrillation and typical atrial flutter
s/p unsuccessful CV 05/08/2025New start to chronic Tikosyn therapy 05/08/2025
Chronic Eliquis OAC
Acute on chronic HFpEF, proBNP 2089
AE COPD
Concern for infection with Leukocytosis and elevated procalcitonin/ lactic acid
Chronic hypercapnic respiratory failure, chronic nocturnal hypoxemia on home O2 at 2 L NC
Bilateral carotid artery disease
Mild dilatation of aortic root
Echo 05/06/2025: Compared to a prior transthoracic echocardiogram study from June 2024 no significant changes are seen. Mildly dilated aortic root with Sinus of Valsalva measuring 3.8 cm. sinotubular junction mesures 3.7 cm. and ascending aorta
measures 3.8 cm.Normal left ventricular size. Overall, preserved left ventricular systolic function. Mild concentric left ventricular hypertrophy. No regional wall motion abnormalities. Left ventricular ejection fraction is 50-55% by visual
estimate. Mild AR, mild TR, PASP 37 mmHg
Echo Jun 2024: Normal biventricular size and systolic function with EF estimated 60 to 65%. No significant valve disease with mild AI and trace MR/TR. Estimated pulmonary artery pressure 25-30 mmHg. Sinus of Valsalva 3.7 cm, proximal ascending
aorta 4 cm. No pericardial effusion
Plan:
Admitted with acute hypoxic respiratory failure in the setting of AE COPD, PNA and acute HF 05/03/2025
-Respiratory status is improving. Patient now down to 1 L of oxygen via nasal cannula. She does use oxygen at home. Continue antibiotics per primary service
- Patient had unsuccessful attempted CV on 05/08/2025 then remained in A-fib with RVR. Cardiology PAElaina talked with patient and daughter in the room on 05/08/2025 about options for antiarrhythmic drug, patient was previously intolerant to amiodarone
due to nausea. Initiated on Tikosyn 500 mcg every 12 hours 05/08 in am. After second dose QTc increased to 558 ms and Tikosyn dose for 05/09 in PM held.
- ECG 05/10 am with QTc 447 ms. Continue Tikosyn 250 mcg (05/10 am third dose but pt vomited shortly after). QTc after fourth dose 449 ms. Patient will get fifth dose a.m. of 05/11/2025. Continue to monitor with serial EKGs. If she does not
convert we will plan cardioversion on 05/13/2025.
-Cardizem gtt running at 10 mg/hr, attempted to reduce to 5 on 05/10/2025 but patient threw up medications and heart rate elevated. Heart rate much better controlled overnight. Will once again attempt to reduce to Cardizem drip 5 mg/hr 05/11/2025.
Hopefully can weaning off within the next 24 hours
-Continue Cardizem CD 240 mg BID, of note patient was taking Cardizem CD 360 mg daily prior to admission
-Outpatient dose of Eliquis 5 mg BID (age 79, Cre 0.8, wt 71.1 kg) has been continued
-Digoxin started and stopped this admission, digoxin stopped 05/09/2025
-If patient fails to spontaneously convert to SR and she is still here 05/13 will proceed with CV (pt has been made NPO for 05/13 and labeler charge nurse was notified 05/10).
-Potassium 4.0, mag 2.0
-Weight is down 9 lbs with IV diuresis so far this admission. Appears euvolemic. Patient was diuresed with Lasix 20 mg IV daily initially and now transitioned to her usual outpatient dose of Lasix 20 mg PO daily.
-EF preserved at 50 to 55% by echo 05/06/2025
-Patient is not chronically on BB due to COPD and reactive airway disease
-Patient is not chronically on AMITA/ARB/ARNI/aldosterone antagonist due to hypotension
-Patient is new to midodrine 2.5 mg TID this admission. Blood pressure continues to be can attempt to wean off midodrine as heart rate improves and with eventual discontinuation of diltiazem drip.
-Outpatient dose of Farxiga 10 mg daily has been continued
-4 doses of acetazolamide ordered by hospitalist attending. Would avoid acetazolamide given potential for electrolyte abnormalities with initiation of Tikosyn. Patient now on Lasix. Appears euvolemic.
Original Note:
Today's Communication / Plan
-
Continue Tikosyn load 250 mcg twice daily
Continue Eliquis and oral diltiazem
Wean diltiazem drip
Wean off oxygen
Inpatient cardioversion arranged for 05/13/2025
Impression / Plan
-
PCP: Dr. Sweeney
loss prevention and safety manager: Dr. Mayers
Impression:
Admitted with acute hypoxic respiratory failure in the setting of AE COPD, PNA and acute HF 05/03/2025
Acute hypoxic respiratory failure, multifactorial
Persistent atrial fibrillation and typical atrial flutter
s/p unsuccessful CV 05/08/2025
New start to chronic Tikosyn therapy 05/08/2025
Chronic Eliquis OAC
Acute on chronic HFpEF, proBNP 2089
AE COPD
Concern for infection with Leukocytosis and elevated procalcitonin/ lactic acid
Chronic hypercapnic respiratory failure, chronic nocturnal hypoxemia on home O2 at 2 L NC
Bilateral carotid artery disease
Mild dilatation of aortic root
Echo 05/06/2025: Compared to a prior transthoracic echocardiogram study from June 2024 no significant changes are seen. Mildly dilated aortic root with Sinus of Valsalva measuring 3.8 cm. sinotubular junction mesures 3.7 cm. and ascending aorta
measures 3.8 cm.Normal left ventricular size. Overall, preserved left ventricular systolic function. Mild concentric left ventricular hypertrophy. No regional wall motion abnormalities. Left ventricular ejection fraction is 50-55% by visual
estimate. Mild AR, mild TR, PASP 37 mmHg
Echo Jun 2024: Normal biventricular size and systolic function with EF estimated 60 to 65%. No significant valve disease with mild AI and trace MR/TR. Estimated pulmonary artery pressure 25-30 mmHg. Sinus of Valsalva 3.7 cm, proximal ascending
aorta 4 cm. No pericardial effusion
Plan:
Admitted with acute hypoxic respiratory failure in the setting of AE COPD, PNA and acute HF 05/03/2025
-Respiratory status is improving. Patient now down to 1 L of oxygen via nasal cannula. She does use oxygen at home. Continue antibiotics per primary service
- Patient had unsuccessful attempted CV on 05/08/2025 then remained in A-fib with RVR. Cardiology PA-C talked with patient and daughter in the room on 05/08/2025 about options for antiarrhythmic drug, patient was previously intolerant to
amiodarone. Initiated on Tikosyn 500 mcg every 12 hours 05/08 in am. After second dose QTc increased to 558 ms and Tikosyn dose for 05/09 in PM held.
- ECG 05/10 am with QTc 447 ms. Started on Tikosyn 250 mcg (05/10 am third dose but pt vomited shortly after). QTc after fourth dose 449 ms. Patient will get fifth dose a.m. of 05/11/2025. Continue to monitor with serial EKGs.
-Cardizem gtt running at 10 mg/hr, attempted to reduce to 5 on 05/10/2025 but patient threw up medications and heart rate elevated. Heart rate much better controlled overnight. Will once again attempt to reduce to Cardizem drip 5 mg/hr 05/11/2025.
Hopefully can weaning off within the next 24 hours
-Continue Cardizem CD 240 mg BID, of note patient was taking Cardizem CD 360 mg daily prior to admission
-Outpatient dose of Eliquis 5 mg BID (age 79, Cre 0.8, wt 71.1 kg) has been continued
-Digoxin started and stopped this admission, digoxin stopped 05/09/2025
-If patient fails to spontaneously convert to SR and she is still here 05/13 will proceed with CV (pt has been made NPO for 05/13 and labeler charge nurse was notified 05/10).
-Potassium 4.0, mag 2.0
-Weight is down 9 lbs with IV diuresis so far this admission. Appears euvolemic. Patient was diuresed with Lasix 20 mg IV daily initially and now transitioned to her usual outpatient dose of Lasix 20 mg PO daily.
-EF preserved at 50 to 55% by echo 05/06/2025
-Patient is not chronically on BB due to COPD and reactive airway disease
-Patient is not chronically on AMITA/ARB/ARNI/aldosterone antagonist due to hypotension
-Patient is new to midodrine 2.5 mg TID this admission. Blood pressure continues to be can attempt to wean off midodrine as heart rate improves and with eventual discontinuation of diltiazem drip.
-Outpatient dose of Farxiga 10 mg daily has been continued
-4 doses of acetazolamide ordered by hospitalist attending. Would avoid acetazolamide given potential for electrolyte abnormalities with initiation of Tikosyn. Patient now on Lasix. Appears euvolemic.
Plan discussed with patient patient's daughter at bedside, nursing and hospitalist
Progress Note - Ticket Dispatcher
Subjective
Date of Service: May 11, 2025
Patient seen and examined. Patient resting in bed with daughter at bedside. Overall from respiratory standpoint seems feels better. Still on 2 L of oxygen. Heart rates improving with Tikosyn and diltiazem. But remains in A-fib
Objective
Labs:
05/09/25 04:18
05/10/25 02:23
Labs
Hgb 16.0 g/dL (12.0-16.0) 05/09/25 04:18
Hct 48.8 % (37.0-47.0) H 05/09/25 04:18
Plt Count 221 10^3/uL (130-400) 05/09/25 04:18
PT 22.2 Sec (11.4-14.6) H 05/04/25 04:03
INR 1.93 05/04/25 04:03
APTT 44.7 Sec (23.4-35.0) H 05/04/25 04:03
Sodium 136 mmol/L (135-145) 05/10/25 02:23
Potassium 4.0 mmol/L (3.5-5.1) 05/10/25 02:23
BUN 32 mg/dl (7-17) H 05/10/25 02:23
Creatinine 0.9 mg/dL (0.6-1.0) 05/10/25 02:23
Glucose 101 mg/dl (70-99) H 05/10/25 02:23
Vital Signs and I&O:
Vital Signs
Temp Pulse Resp BP Pulse Ox
97.5 F 105 18 116/81 97
05/11/25 07:37 05/11/25 05:31 05/11/25 07:37 05/11/25 05:31 05/11/25 07:37
Vital Signs
Temp Pulse Resp BP Pulse Ox
97.5 F 105 18 116/81 97
05/11/25 07:37 05/11/25 05:31 05/11/25 07:37 05/11/25 05:31 05/11/25 07:37
Intake & Output
05/09/25 05/10/25 05/11/25 05/12/25
06:59 06:59 06:59 06:59
Intake Total 990 / 990 360 / 360 240 / 240
Output Total 1100 / 1100 800 / 800 950 / 950
Balance -110 / -110 -440 / -440 -710 / -710
Physical Exam
Physical Exam
GEN: No distress, awake, Ox3, sitting in bed on oxygen
HEENT: supple, anicteric, mmm
LUNGS: CTA, no wheezes/rales, oxygen via nasal cannula 2 L/min
CV: Irregularly irregular, S1/S2, 1/6 syst LSB, no murmur
ABD: soft, BS+, NT/ND
EXT: No edema, clubbing or cyanosis
NEURO: Gross non-focal
SKIN: No rash, warm, dry, pink
[2025-05-11] MEDS: SPIRIVA RESPIMAT 2.5 MCG 2 PUFF INH (08:10)
[2025-05-11] MEDS: CARDIZEM CD 240 MG PO ×2 (09:59→19:54)
[2025-05-11] MEDS: LASIX 20 MG PO (10:00)
[2025-05-11] MEDS: LIPITOR 10 MG PO (10:00)
[2025-05-11] MEDS: DELTASONE 20 MG PO (10:01)
[2025-05-11] MEDS: TIKOSYN 250 MCG PO ×2 (10:01→19:58)
[2025-05-11] MEDS: THERAGRAN 1 TABLET PO (10:02)
[2025-05-11] MEDS: VITAMIN B-12 1000 MCG PO (10:02)
[2025-05-11] MEDS: VITAMIN D3 (cholecalciferol) 50 MCG PO (10:02)
[2025-05-11] MEDS: ELIQUIS 5 MG PO ×2 (10:02→19:54)
[2025-05-11] MEDS: VIBRAMYCIN 100 MG PO ×2 (10:02→19:54)
[2025-05-11] MEDS: PEPCID PO (10:30)
--- NOTE | 2025-05-11 12:05 | W.PN.HOSP.TC ---
Today's Communication/Plan
-
Labs in am
Watch HR
Cardizem Gtt
Tikosyn
Assessment / Plan
Assessment / Plan
79-year-old admitted with shortness of breath
CT of the chest abdomen pelvis-05/03/2025-limited study. No findings of pneumonia pleural effusion or any gross abnormalities. Distal colonic diverticulosis. Pattern of centrilobular emphysema
CVS: S1-S2 irregular
Chest: CTA
Abdomen: Soft, NT / Bowel sounds present
Extremities: No edema
Echo 05/06/2025-no significant changes since June. Mildly dilated aortic root 3.8 cm. Ascending aorta 3.8 cm. Normal LV size. Mild concentric LVH. EF 50 to 55%. Adequate leaflet excursion. Mild AI. Mild TR. PA pressure 37 mmHg
# Atrial fibrillation with RVR
On Eliquis and Cardizem 360 mg daily, metoprolol 25 mg daily as outpatient
Continue Eliquis
Continue midodrine
Cardizem gtt still running. Cardizem increased to 240 mg twice daily
Beta-blockers discontinued
Failed cardioversion on 05/08/2025
Tikosyn load started on 05/08/2025
Dose reduced to 250 mg as QTc was prolonged. EKG ordered by cardiology reviewed by me today. QTc 449
Plan for CV again tuesday
# Acute on chronic hypoxic respiratory failure-on 2 L of oxygen at baseline
Weaned off of BiPAP to nasal cannula oxygen
COVID and influenza negative. Blood cultures negative
Likely secondary to acute COPD exacerbation and heart failure
# Nausea this morning-likely secondary to steroids. Added Pepcid, she feels better
# Sepsis ruled out
Lactic acidosis-better
CT of the chest-without any acute changes or infection
# COPD exacerbation
Continue Doxy
Taper steroids- 20 mg
On Spiriva as outpatient
# Acute on chronic HFpEF-BNP 2089
On Lasix 20 mg p.o. daily
Continue Farxiga
Continue intake output charting
Echo as above
Cardiology following
# Abnormal urinalysis-cultures negative
# Hyperlipidemia will continue atorvastatin
# Known thoracic aortic aneurysm
# Osteoporosis-on alendronate 70 mg on Mondays
# Colonic diverticulosis
# History of nephrolithiasis
# Ex-smoker
# DVT prophylaxis-Eliquis
# DNR
D/W Daughter at bed side
Will review labs tomorrow
Patient is still tachycardic and on Cardizem drip. Cardioversion planned. Monitor heart rate closely at this point. Continue Tikosyn
Part of this note was created using voice recognition system. Occasional wrong word or��sound alike� substitutions may have inadvertently occurred due to the inherent limitations of voice recognition software. If noted kindly bring it to my
attention for correction.
Anticipated Discharge: 24 - 48 hours
Subjective/Interval History
-
Date of Service: May 11, 2025
Objective Data
-
Vital Signs:
Vital Signs
Temp Pulse Resp BP Pulse Ox
97.6 F 110 18 112/77 96
05/11/25 11:46 05/11/25 11:36 05/11/25 11:46 05/11/25 11:36 05/11/25 11:46
I&O
05/10/25 05/11/25 05/12/25
06:59 06:59 06:59
Intake Total 360 / 360 240 / 240
Output Total 800 / 800 950 / 950
Balance -440 / -440 -710 / -710
--- NOTE | 2025-05-11 13:47 | PTCARENOTE ---
received patient this am, monitor shows Afib/flutter, HR in the 100's, mary. well. IV Cardizem @ 10cc/hr via right wrist. lung [place] as diminished remains on 2 LNC, patient does wear home o2 but is prn. patient had BM this am with scant amount of
blood from hemorrhoids. patient sat up in chair all day so far, eating her breakfast and lunch. plan reviewed with patient and daughter who is at bedside.
--- NOTE | 2025-05-11 14:29 | PTCARENOTE ---
attempted to wean IV cardizem to 5ml/hr but HR went up to the 130's with patient just sitting in chair, increased IV cardizem back to 10ml/hr and started new INT in left forearm # 22P due to right arm being reddened and infiltrated.
[2025-05-11] MEDS: FARXIGA 10 MG PO (17:35)
--- NOTE | 2025-05-11 22:34 | PTCARENOTE ---
Pt rec'd at change of shift oob in recliner chair with daughter at bedside. No c/o pain or nausea. mary po meds well. Afib on telemetry. Cardizem gtt at 10 mg/hr.
[2025-05-12] VITALS (10 sets, daily range): BP systolic 103–117; BP diastolic 49–72; PULSE 103–137; O2SAT 98
[2025-05-12 02:49] LABS: Hematocrit 45.8 % (37.0-47.0); Hemoglobin 15.8 g/dL (12.0-16.0); Mean Corp Hgb Conc. 34.5 g/dL (33.0-37.0); Mean Corpuscular Volume 94.4 fL (81.0-99.0); Platelet Count 222 10^3/uL (130-400); Red Cell Dist. Width 13.0 % (11.5-14.5)
[2025-05-12 03:02] LABS: Blood Urea Nitrogen 33 mg/dl (7-17); Calcium 10.0 mg/dl (8.4-10.2); Carbon Dioxide 34 mmol/L (22-30); Chloride 98 mmol/L (98-107); Estimated Creatinine Clearance 50 ml/min; Glucose 110 mg/dl (70-99); Magnesium 2.0 mg/dl (1.6-2.3); Potassium 3.8 mmol/L (3.5-5.1); Sodium 134 mmol/L (135-145); eGFR > 60.00
[2025-05-12] MEDS: SPIRIVA RESPIMAT 2.5 MCG 2 PUFF INH (07:41)
--- NOTE | 2025-05-12 08:18 | W.PN.CARDCBS ---
Today's Communication / Plan
-
Tikosyn
P.o. Cardizem
Oral anticoagulation
N.p.o. after midnight for cardioversion 1124
Impression / Plan
-
PCP: Dr. Sweeney
cyber policy and strategy planner: Dr. Mayers
Impression:
Admitted with acute hypoxic respiratory failure in the setting of AE COPD, PNA and acute HF 05/03/2025
Acute hypoxic respiratory failure, multifactorial
Persistent atrial fibrillation and typical atrial flutter
s/p unsuccessful CV 05/08/2025
New start to chronic Tikosyn therapy 05/08/2025
Chronic Eliquis OAC
Acute on chronic HFpEF, proBNP 2089
AE COPD
Concern for infection with Leukocytosis and elevated procalcitonin/ lactic acid
Chronic hypercapnic respiratory failure, chronic nocturnal hypoxemia on home O2 at 2 L NC
Bilateral carotid artery disease
Mild dilatation of aortic root
Echo 05/06/2025: Compared to a prior transthoracic echocardiogram study from June 2024 no significant changes are seen. Mildly dilated aortic root with Sinus of Valsalva measuring 3.8 cm. sinotubular junction mesures 3.7 cm. and ascending aorta
measures 3.8 cm.Normal left ventricular size. Overall, preserved left ventricular systolic function. Mild concentric left ventricular hypertrophy. No regional wall motion abnormalities. Left ventricular ejection fraction is 50-55% by visual
estimate. Mild AR, mild TR, PASP 37 mmHg
Echo Jun 2024: Normal biventricular size and systolic function with EF estimated 60 to 65%. No significant valve disease with mild AI and trace MR/TR. Estimated pulmonary artery pressure 25-30 mmHg. Sinus of Valsalva 3.7 cm, proximal ascending
aorta 4 cm. No pericardial effusion
Plan:
Admitted with acute hypoxic respiratory failure in the setting of AE COPD, PNA and acute HF 05/03/2025
-Respiratory status is improving. Patient now down to 1 L of oxygen via nasal cannula. She does use oxygen at home. Continue antibiotics per primary service
- Patient had unsuccessful attempted CV on 05/08/2025 then remained in A-fib with RVR. Cardiology PAMajorC talked with patient and daughter in the room on 05/08/2025 about options for antiarrhythmic drug, patient was previously intolerant to
amiodarone. Initiated on Tikosyn 500 mcg every 12 hours 05/08 in am. After second dose QTc increased to 558 ms and Tikosyn dose for 05/09 in PM held.
- ECG 05/10 am with QTc 447 ms. Started on Tikosyn 250 mcg (05/10 am third dose but pt vomited shortly after). QTc after fourth dose 449 ms. Patient will get fifth dose a.m. of 05/11/2025. Continue to monitor with serial EKGs.
- Her rates appear to be well-controlled and I have no objection to weaning Cardizem drip to off
-Continue Cardizem CD 240 mg BID, of note patient was taking Cardizem CD 360 mg daily prior to admission
-Outpatient dose of Eliquis 5 mg BID (age 79, Cre 0.8, wt 71.1 kg) has been continued
-Digoxin started and stopped this admission, digoxin stopped 05/09/2025
-If patient fails to spontaneously convert to SR and she is still here 05/13 will proceed with CV (pt has been made NPO for 05/13 and open hearth furnace laborer charge nurse was notified 05/10).
-Potassium 4.0, mag 2.0
-Weight is down 9 lbs with IV diuresis so far this admission. Appears euvolemic. Patient was diuresed with Lasix 20 mg IV daily initially and now transitioned to her usual outpatient dose of Lasix 20 mg PO daily.
-EF preserved at 50 to 55% by echo 05/06/2025
-Patient is not chronically on BB due to COPD and reactive airway disease
-Patient is not chronically on AMITA/ARB/ARNI/aldosterone antagonist due to hypotension
-Patient is new to midodrine 2.5 mg TID this admission. Blood pressure continues to be can attempt to wean off midodrine as heart rate improves and with eventual discontinuation of diltiazem drip.
-Outpatient dose of Farxiga 10 mg daily has been continued
-4 doses of acetazolamide ordered by hospitalist attending. Would avoid acetazolamide given potential for electrolyte abnormalities with initiation of Tikosyn. Patient now on Lasix. Appears euvolemic.
Plan discussed with patient patient's daughter at bedside, nursing and hospitalist
Progress Note - Economic Consultant
Subjective
Date of Service: May 12, 2025
Feels about the same
Objective
Labs:
05/12/25 02:24
05/12/25 02:24
Labs
Hgb 15.8 g/dL (12.0-16.0) 05/12/25 02:24
Hct 45.8 % (37.0-47.0) 05/12/25 02:24
Plt Count 222 10^3/uL (130-400) 05/12/25 02:24
PT 22.2 Sec (11.4-14.6) H 05/04/25 04:03
INR 1.93 05/04/25 04:03
APTT 44.7 Sec (23.4-35.0) H 05/04/25 04:03
Sodium 134 mmol/L (135-145) L 05/12/25 02:24
Potassium 3.8 mmol/L (3.5-5.1) 05/12/25 02:24
BUN 33 mg/dl (7-17) H 05/12/25 02:24
Creatinine 0.8 mg/dL (0.6-1.0) 05/12/25 02:24
Glucose 110 mg/dl (70-99) H 05/12/25 02:24
Vital Signs and I&O:
Vital Signs
Temp Pulse Resp BP Pulse Ox
98.5 F 95 16 103/59 94
05/12/25 07:27 05/12/25 07:44 05/12/25 07:44 05/12/25 02:15 05/12/25 07:44
Vital Signs
Temp Pulse Resp BP Pulse Ox
98.5 F 95 16 103/59 94
05/12/25 07:27 05/12/25 07:44 05/12/25 07:44 05/12/25 02:15 05/12/25 07:44
Intake & Output
05/10/25 05/11/25 05/12/25 05/13/25
06:59 06:59 06:59 06:59
Intake Total 360 / 360 240 / 240 1200 / 1200
Output Total 800 / 800 950 / 950 600 / 600
Balance -440 / -440 -710 / -710 600 / 600
Physical Exam
Physical Exam
����Physical Exam
���������������������General:��no apparent distress, not acutely ill
���������������������������Neck:��supple. no meningeal signs. normal psoterior pharynx
������������������������
���������������������������Heart:�Cor irregularly irregular
��������������������������Lungs: ��no acute respiratory distress. clear bilaterally
����������������������Abdomen:�normal bowel sounds. not tender. no CVAT
��������������������������Neuro:��alert and oriented. no focal neurological deficits
������������������������������Skin: ��no rash
�����������������������Psychiatric:�well kept. interactive and cooperative
�����������������������Extremities:��no edema. no calf tenderness. negative homans. good distal pulses
��
�
[2025-05-12] MEDS: LASIX 20 MG PO (09:51)
[2025-05-12] MEDS: VIBRAMYCIN 100 MG PO (09:51)
[2025-05-12] MEDS: CARDIZEM CD 240 MG PO ×2 (09:51→19:55)
[2025-05-12] MEDS: ELIQUIS 5 MG PO ×2 (09:51→19:56)
[2025-05-12] MEDS: LIPITOR 10 MG PO (09:51)
[2025-05-12] MEDS: VITAMIN B-12 1000 MCG PO (09:52)
[2025-05-12] MEDS: DELTASONE 20 MG PO (09:52)
[2025-05-12] MEDS: PEPCID 20 MG PO (09:52)
[2025-05-12] MEDS: TIKOSYN 250 MCG PO ×2 (09:52→19:56)
[2025-05-12] MEDS: VITAMIN D3 (cholecalciferol) 50 MCG PO (09:52)
[2025-05-12] MEDS: THERAGRAN 1 TABLET PO (09:52)
--- NOTE | 2025-05-12 10:45 | W.PN.HOSP.TC ---
Today's Communication/Plan
-
Continue Cardizem p.o. and IV
Continue Tikosyn
Prednisone changed to 10 mg daily
Doxycycline discontinued
Cardioversion planned for tomorrow
Assessment / Plan
Assessment / Plan
79-year-old admitted with shortness of breath
CT of the chest abdomen pelvis-05/03/2025-limited study. No findings of pneumonia pleural effusion or any gross abnormalities. Distal colonic diverticulosis. Pattern of centrilobular emphysema
CVS: S1-S2 irregular
Chest: CTA
Abdomen: Soft, NT / Bowel sounds present
Extremities: No edema
Echo 05/06/2025-no significant changes since June. Mildly dilated aortic root 3.8 cm. Ascending aorta 3.8 cm. Normal LV size. Mild concentric LVH. EF 50 to 55%. Adequate leaflet excursion. Mild AI. Mild TR. PA pressure 37 mmHg
# Atrial fibrillation with RVR
On Eliquis and Cardizem 360 mg daily, metoprolol 25 mg daily as outpatient
Continue Eliquis
Continue midodrine
Cardizem gtt still running. Cardizem increased to 240 mg twice daily
Beta-blockers discontinued
Failed cardioversion on 05/08/2025
Tikosyn load started on 05/08/2025
Dose reduced to 250 mg as QTc was prolonged. EKG ordered by cardiology reviewed by me today. QTc 433
Plan for CV again Tuesday
# Acute on chronic hypoxic respiratory failure-on 2 L of oxygen at baseline
Weaned off of BiPAP to nasal cannula oxygen
COVID and influenza negative. Blood cultures negative
Likely secondary to acute COPD exacerbation and heart failure
# Sepsis ruled out
Lactic acidosis-better
CT of the chest-without any acute changes or infection
# COPD exacerbation
Completed Doxy
Taper steroids- 10 mg for 3 more days and stop
On Spiriva as outpatient
# Acute on chronic HFpEF-BNP 2089
On Lasix 20 mg p.o. daily
Continue Farxiga
Continue intake output charting
Echo as above
Cardiology following
# Abnormal urinalysis-cultures negative
# Hyperlipidemia will continue atorvastatin
# Known thoracic aortic aneurysm
# Osteoporosis-on alendronate 70 mg on Mondays
# Colonic diverticulosis
# History of nephrolithiasis
# Ex-smoker
# DVT prophylaxis-Eliquis
# DNR
D/W Daughter at bed side
Discussed with nursing at bedside
Patient is still tachycardic and on Cardizem drip. Cardioversion planned. Monitor heart rate closely at this point. Continue Tikosyn. QTC Ok on ekg. Cardizem drip renewed
Part of this note was created using voice recognition system. Occasional wrong word or��sound alike� substitutions may have inadvertently occurred due to the inherent limitations of voice recognition software. If noted kindly bring it to my
attention for correction.
Anticipated Discharge: 24 - 48 hours
Subjective/Interval History
-
Date of Service: May 12, 2025
Objective Data
-
Labs:
Laboratory Results
05/12/25
02:24
WBC 14.5 H
Hgb 15.8
Hct 45.8
Plt Count 222
Sodium 134 L
Potassium 3.8
Chloride 98
Carbon Dioxide 34 H
BUN 33 H
Creatinine 0.8
Glucose 110 H
Calcium 10.0
Vital Signs:
Vital Signs
Temp Pulse Resp BP Pulse Ox
98.5 F 126 16 109/69 94
05/12/25 07:27 05/12/25 09:51 05/12/25 07:44 05/12/25 09:51 05/12/25 07:44
I&O
05/11/25 05/12/25 05/13/25
06:59 06:59 06:59
Intake Total 240 / 240 1200 / 1200
Output Total 950 / 950 600 / 600
Balance -710 / -710 600 / 600
[2025-05-12] MEDS: CARDIZEM 125 IV (11:50)
--- NOTE | 2025-05-12 14:26 | PTCARENOTE ---
received patient this am already sitting up in chair having breakfast. monitor shows afib with HR at rest in the 90's but as soon as she gets up off of chair and ambulates HR goes to the 150's. when she sits back down HR comes back down quickly. IV
Cardizem @ 10cc/hr via left ant without difficulties. patient lungs are decreased in the bases, 2lNC with a o2 sat of 96%. daughter at bedside, call mao within reach. plan discussed for the day.
[2025-05-12] MEDS: FARXIGA 10 MG PO (18:02)
--- NOTE | 2025-05-12 21:48 | PTCARENOTE ---
Received pt @ change of shift. AAOx3, daughter bedside. VSS w/ 2L NC-- Afib on monitor. Cardizem gtt running @ 10 mL/hr through left AC. Discussed NPO @ midnight. Pt verbalizes understanding. Plan of care ongoing. Call mao within reach.
[2025-05-13] VITALS (10 sets, daily range): BP systolic 103–123; BP diastolic 48–82; PULSE 99–130; O2SAT 96; BMI 28.3
[2025-05-13] MEDS: CARDIZEM 125 IV (00:18)
[2025-05-13 03:53] LABS: Blood Urea Nitrogen 29 mg/dl (7-17); Calcium 9.7 mg/dl (8.4-10.2); Chloride 96 mmol/L (98-107); Estimated Creatinine Clearance 58 ml/min; Glucose 92 mg/dl (70-99); Potassium 3.7 mmol/L (3.5-5.1); Sodium 136 mmol/L (135-145); eGFR > 60.00
[2025-05-13 04:35] LABS: Carbon Dioxide 39 mmol/L (22-30)
[2025-05-13] MEDS: SPIRIVA RESPIMAT 2.5 MCG 2 PUFF INH (07:29)
[2025-05-13] MEDS: TIKOSYN 250 MCG PO (08:25)
[2025-05-13] MEDS: ELIQUIS 5 MG PO ×2 (08:26→20:25)
[2025-05-13] MEDS: CARDIZEM CD 240 MG PO ×2 (08:26→20:25)
[2025-05-13] MEDS: FLUSH (NSS) 1 FLUSH IV (08:27)
[2025-05-13] MEDS: PEPCID 20 MG PO (08:27)
--- NOTE | 2025-05-13 10:27 | W.PN.HOSP.TC ---
Today's Communication/Plan
-
Continue with Eliquis, Tikosyn, Cardizem drip
For electrical cardioversion today.
Assessment / Plan
Assessment / Plan
79-year-old admitted with shortness of breath
CT of the chest abdomen pelvis-05/03/2025-limited study. No findings of pneumonia pleural effusion or any gross abnormalities. Distal colonic diverticulosis. Pattern of centrilobular emphysema
CVS: S1-S2 irregular
Chest: CTA
Abdomen: Soft, NT / Bowel sounds present
Extremities: No edema
Echo 05/06/2025-no significant changes since June. Mildly dilated aortic root 3.8 cm. Ascending aorta 3.8 cm. Normal LV size. Mild concentric LVH. EF 50 to 55%. Adequate leaflet excursion. Mild AI. Mild TR. PA pressure 37 mmHg
#Atrial fibrillation with RVR
Persistent A-fib. Hemodynamically stable today.
Failed cardioversion on 05/08/2025
Tikosyn load started on 05/08/2025
On rate control medication as well-ongoing Cardizem drip.
On anticoagulation-Eliquis
Plan for electrical cardioversion today.
# Acute on chronic hypoxic respiratory failure-on 2 L of oxygen at baseline
Weaned off of BiPAP to nasal cannula oxygen
COVID and influenza negative. Blood cultures negative
Likely secondary to acute COPD exacerbation and heart failure
Continue with Lasix. No active bronchospasm. Continue with prednisone wean.
# COPD exacerbation
Completed Doxy
Taper steroids- 10 mg for 2 more days and stop
On Spiriva as outpatient
# Acute on chronic HFpEF-BNP 2089
On Lasix 20 mg p.o. daily
Continue Farxiga
Continue intake output charting
Echo as above
Cardiology following
# Hyperlipidemia will continue atorvastatin
# Known thoracic aortic aneurysm
# Osteoporosis-on alendronate 70 mg on Mondays
# DVT prophylaxis-Eliquis
# DNR
D/W Daughter at bed side
Discussed with nursing
Discussed with family at bedside
Part of this note was created using voice recognition system. Occasional wrong word or��sound alike� substitutions may have inadvertently occurred due to the inherent limitations of voice recognition software. If noted kindly bring it to my
attention for correction.
Anticipated Discharge: > 48 hours
Subjective/Interval History
-
Date of Service: May 13, 2025
Still with exertional shortness of breath. Not short of breath at rest. No chest pain. Await electrical cardioversion this morning.
Objective Data
-
Labs:
Laboratory Results
05/13/25
03:21
Sodium 136
Potassium 3.7
Chloride 96 L
Carbon Dioxide 39 H
BUN 29 H
Creatinine 0.7
Glucose 92
Calcium 9.7
Vital Signs:
Vital Signs
Temp Pulse Resp BP Pulse Ox
98.6 F 102 18 113/69 97
05/13/25 08:43 05/13/25 08:00 05/13/25 08:43 05/13/25 07:58 05/13/25 08:43
I&O
05/12/25 05/13/25 05/14/25
06:59 06:59 06:59
Intake Total 1200 / 1200 120 / 120
Output Total 600 / 600 450 / 450
Balance 600 / 600 120 / 120 -450 / -450
Physical Exam
-
General: No Apparent Distress
Respiratory: Non Labored Respirations; Negative Wheezes, Crackles or Accessory Resp Muscle Use
Cardiac: S1/S2, Irregular Rhythm and Tachycardic
GI: Soft
Neuro: AO x 3
Psych: Calm
Data Reviewed
-
Labs: Labs Reviewed by me
--- NOTE | 2025-05-13 11:35 | PTCARENOTE ---
Received the patient from the lab support tech in a stretcher. The patient is aaox3, her vital signs are stable. Afib is noted on the monitor. She ambulated to the chair x1 assist and a RW. She remains on 2L for dyspnea. She has no complaints of pain or
discomfort. I discontinued her Cardizem gtt as per order.
--- NOTE | 2025-05-13 12:08 | W.PN.CARDCBS ---
Addendum entered and electronically signed by Jesus Mayers DO 05/13/25 14:32:
I saw and examined the patient.
The Calker's note was reviewed and I agree with the note.
Comment:
Plan:
Unsuccessful cardioversion today. Remains in AFib
Reviewed with the EP, will stop Tikosyn and IV Cardizem.
Continue Cardizem p.o., add digoxin 250 mcg IV today and start 125 mcg daily tomorrow
Her atrial fibrillation is longstanding and she has previously declined rhythm control considerations. May need to except suboptimal heart rate control in the short-term. Continue a rate control strategy.
Continue anticoagulation.
Discussed EP outpatient evaluation for consideration for ablation.
Continue daily weights, continue oral diuretics.
If continues to improve hopeful discharge next 24 to 48 hours.
Discussed with her daughter and son today.
Original Note:
Today's Communication / Plan
-
stop tikosyn, IV cardizem
start Digoxin
consider ablation in outpt setting
Impression / Plan
-
PCP: Dr. Sweeney
diet supervisor: Dr. Mayers
Impression:
Admitted with acute hypoxic respiratory failure in the setting of AE COPD, PNA and acute HF 05/03/2025
Acute hypoxic respiratory failure, multifactorial
Persistent atrial fibrillation and typical atrial flutter
s/p unsuccessful CV 05/08/2025
new start to Tikosyn therapy 05/08/2025-Tikosyn 250 mcg bid
reattempt at CV 05/13/2025- did not convert
Chronic Eliquis OAC
Acute on chronic HFpEF, proBNP 2089
AE COPD
Concern for infection with Leukocytosis and elevated procalcitonin/ lactic acid
Chronic hypercapnic respiratory failure, chronic nocturnal hypoxemia on home O2 at 2 L NC
Bilateral carotid artery disease
Mild dilatation of aortic root
Echo 05/06/2025: Compared to a prior transthoracic echocardiogram study from June 2024 no significant changes are seen. Mildly dilated aortic root with Sinus of Valsalva measuring 3.8 cm. sinotubular junction mesures 3.7 cm. and ascending aorta
measures 3.8 cm.Normal left ventricular size. Overall, preserved left ventricular systolic function. Mild concentric left ventricular hypertrophy. No regional wall motion abnormalities. Left ventricular ejection fraction is 50-55% by visual
estimate. Mild AR, mild TR, PASP 37 mmHg
Echo Jun 2024: Normal biventricular size and systolic function with EF estimated 60 to 65%. No significant valve disease with mild AI and trace MR/TR. Estimated pulmonary artery pressure 25-30 mmHg. Sinus of Valsalva 3.7 cm, proximal ascending
aorta 4 cm. No pericardial effusion
Plan:
Admitted with acute hypoxic respiratory failure in the setting of AE COPD, PNA and acute HF 05/03/2025
-Respiratory status is improving. Patient now down to 1 L of oxygen via nasal cannula. She does use oxygen at home. Continue antibiotics per primary service
Afib:
- Patient had unsuccessful attempted CV on 05/08/2025 then remained in A-fib with RVR. Cardiology PA-C talked with patient and daughter in the room on 05/08/2025 about options for antiarrhythmic drug, patient was previously intolerant to
amiodarone. Initiated on Tikosyn 500 mcg every 12 hours 05/08 in am. After second dose QTc increased to 558 ms and Tikosyn dose for 05/09 in PM held.
- ECG 05/10 am with QTc 447 ms. Started on Tikosyn 250 mcg (05/10 am third dose but pt vomited shortly after). QTc after fourth dose 449 ms. Patient got fifth dose a.m. of 05/11/2025, QTc 433msec.
-she had attempt at electrical cardioversion today 05/13/2025 but did not convert
-at this time will stop Tikosyn, stop Cardizem gtt, continue oral Cardizem 240 mg bid, start Digoxin for rate control with goal HR <120 bpm, t/c ablation in outpatient setting
- of note patient was taking Cardizem CD 360 mg daily prior to admission
-Outpatient dose of Eliquis 5 mg BID (age 79, Cre 0.8, wt 71.1 kg) has been continued
-Potassium 3.7 05/13- replete with KCl 20 meq-ordered. mag 2.0 05/12
-Weight is down 10 lbs with diuresis so far this admission. Transitioned or oral diuretics 05/09, on usual outpatient dose of Lasix 20 mg PO daily.
-EF preserved at 50 to 55% by echo 05/06/2025
-Patient is not chronically on BB due to COPD and reactive airway disease
-Patient is not chronically on AMITA/ARB/ARNI/aldosterone antagonist due to hypotension
-Patient is new to midodrine 2.5 mg TID this admission. Blood pressure continues to be can attempt to wean off midodrine as heart rate improves and with eventual discontinuation of diltiazem drip.
-Outpatient dose of Farxiga 10 mg daily has been continued
-4 doses of acetazolamide ordered by hospitalist attending. Would avoid acetazolamide given potential for electrolyte abnormalities with initiation of Tikosyn. Patient now on Lasix. Appears euvolemic.
Plan discussed with patient, patient's daughter at bedside, nursing
Progress Note - Supervisor Assembly Room
Subjective
Date of Service: May 13, 2025
attempted CV today-not successful
feels tired and hungry
Objective
Labs:
05/12/25 02:24
05/13/25 03:21
Labs
Hgb 15.8 g/dL (12.0-16.0) 05/12/25 02:24
Hct 45.8 % (37.0-47.0) 05/12/25 02:24
Plt Count 222 10^3/uL (130-400) 05/12/25 02:24
PT 22.2 Sec (11.4-14.6) H 05/04/25 04:03
INR 1.93 05/04/25 04:03
APTT 44.7 Sec (23.4-35.0) H 05/04/25 04:03
Sodium 136 mmol/L (135-145) 05/13/25 03:21
Potassium 3.7 mmol/L (3.5-5.1) 05/13/25 03:21
BUN 29 mg/dl (7-17) H 05/13/25 03:21
Creatinine 0.7 mg/dL (0.6-1.0) 05/13/25 03:21
Glucose 92 mg/dl (70-99) 05/13/25 03:21
Vital Signs and I&O:
Vital Signs
Temp Pulse Resp BP Pulse Ox
97.6 F 104 18 113/69 99
05/13/25 11:22 05/13/25 11:22 05/13/25 11:22 05/13/25 07:58 05/13/25 11:22
Vital Signs
Temp Pulse Resp BP Pulse Ox
97.6 F 104 18 113/69 99
05/13/25 11:22 05/13/25 11:22 05/13/25 11:22 05/13/25 07:58 05/13/25 11:22
Intake & Output
05/11/25 05/12/25 05/13/25 05/14/25
06:59 06:59 06:59 06:59
Intake Total 240 / 240 1200 / 1200 120 / 120
Output Total 950 / 950 600 / 600 450 / 450
Balance -710 / -710 600 / 600 120 / 120 -450 / -450
Physical Exam
Physical Exam
GEN: No distress, awake, Ox3
HEENT: supple, anicteric, mmm
LUNGS: CTA, no wheezes/rales
CV: Irreg, irreg no murmur
ABD: soft, BS+, NT/ND
EXT: No edema
NEURO: Gross non-focal
SKIN: No rash
[2025-05-13] MEDS: LANOXIN 250 MCG IV (13:03)
[2025-05-13] MEDS: THERAGRAN 1 TABLET PO (13:06)
[2025-05-13] MEDS: LASIX 20 MG PO (13:06)
[2025-05-13] MEDS: VITAMIN D3 (cholecalciferol) 50 MCG PO (13:06)
[2025-05-13] MEDS: LIPITOR 10 MG PO (13:06)
[2025-05-13] MEDS: VITAMIN B-12 1000 MCG PO (13:06)
[2025-05-13] MEDS: FLUSH (NSS) 2 FLUSH IV (13:06)
[2025-05-13] MEDS: DELTASONE 10 MG PO (13:10)
[2025-05-13] MEDS: KCL 20 MEQ PO (13:22)
--- NOTE | 2025-05-13 13:35 | CM ---
Reviewed chart. Met with Mrs. Quiroga and her daughter and son-in-law. She states she is feeling okay and maybe able to go home soon. She states prior to admission she resides with her daughter and son-in-law in a two story home with three steps to
enter. She states the steps have railings. She states prior to admission she has a first floor set-up. She states he bedroom and full bathroom are on the first floor. She states prior to admission she ambulates in the home without any device, if
she is feeling tired she does use the walker. She states she uses a walker in the community. She states she has home 02 at 2 liters. [employer] services her home 02. She states she has a concentrator and portable. She also has a nebulizer, walker and
single point cane at home. She states she has a prescription plan. We reviewed [facility] and she is agreeable to [facility]. Referral was already sent. Medical work-up in progress. The discharge plan is to return home with her
daughter and son-in-law with [facility] when medically s table.
--- NOTE | 2025-05-13 14:26 | ITS.CL.CARDI ---
Director Business Management - Cardioversion
Cardioversion
Procedure Report:
Date of Procedure: May 13, 2025
Procedure: Cardioversion
Indication: Symptomatic atrial fibrillation
Performing Physician: Jesus Mayers DO, FACC
Technique: The patient was brought to the holding area. Signed informed consent was obtained. A time out was called and performed. The patient was anesthetized by the anesthesia service. Anticoagulation status was reviewed and appropriate. R2 pads
were placed anteriorly and posteriorly. A 200 J synchronized biphasic shock was delivered which was not successful in converting to sinus rhythm. A subsequent 300 J synchronized biphasic shock was delivered without success in restoring sinus
rhythm. A subsequent 360 J synchronized biphasic shock was delivered without success in restoring normal sinus rhythm. There were no complications.
Conclusion: Unsuccessful cardioversion from atrial fibrillation to sinus rhythm. Remains sinus rhythm.
Recommendation: Routine post cardioversion care. Continue shelter anticoagulation.
[2025-05-13] MEDS: FARXIGA 10 MG PO (17:07)
--- NOTE | 2025-05-13 21:38 | PTCARENOTE ---
Received pt @ change of shift. AAOx3, VSS-- Afib on monitor, 2L NC. Pt states being tired as she did not sleep much the night prior-- requested both side rails up for comfort. Discussed plan of care, pt verbalizes understanding. Plan of care
ongoing. Call mao within reach.
[2025-05-14] VITALS (9 sets, daily range): BP systolic 102–122; BP diastolic 53–75; PULSE 120; BMI 28.5
[2025-05-14 05:29] LABS: Blood Urea Nitrogen 25 mg/dl (7-17); Calcium 10.0 mg/dl (8.4-10.2); Chloride 97 mmol/L (98-107); Estimated Creatinine Clearance 58 ml/min; Glucose 84 mg/dl (70-99); Potassium 4.7 mmol/L (3.5-5.1); Sodium 138 mmol/L (135-145); eGFR > 60.00
[2025-05-14 06:55] LABS: Carbon Dioxide 40 mmol/L (22-30)
[2025-05-14] MEDS: SPIRIVA RESPIMAT 2.5 MCG 2 PUFF INH (07:50)
[2025-05-14] MEDS: LASIX 20 MG PO (08:08)
[2025-05-14] MEDS: PEPCID 20 MG PO (08:08)
[2025-05-14] MEDS: ELIQUIS 5 MG PO ×2 (08:09→19:39)
[2025-05-14] MEDS: THERAGRAN 1 TABLET PO (08:09)
[2025-05-14] MEDS: VITAMIN B-12 1000 MCG PO (08:09)
[2025-05-14] MEDS: DELTASONE 10 MG PO (08:10)
[2025-05-14] MEDS: LIPITOR 10 MG PO (08:10)
[2025-05-14] MEDS: VITAMIN D3 (cholecalciferol) 50 MCG PO (08:10)
[2025-05-14] MEDS: CARDIZEM CD 240 MG PO ×2 (08:11→19:39)
--- NOTE | 2025-05-14 09:27 | W.PN.HOSP.TC ---
Today's Communication/Plan
-
Continue with Cardizem and digoxin
Wean oxygen and check saturations at rest and with exertion on room air
DC plan
Assessment / Plan
Assessment / Plan
79-year-old admitted with shortness of breath
Echo 05/06/2025-no significant changes since June. Mildly dilated aortic root 3.8 cm. Ascending aorta 3.8 cm. Normal LV size. Mild concentric LVH. EF 50 to 55%. Adequate leaflet excursion. Mild AI. Mild TR. PA pressure 37 mmHg
#Atrial fibrillation with RVR
Persistent A-fib. Hemodynamically stable.
Failed cardioversion on 05/08/2025
Tikosyn load started on 05/08/2025
Failed cardioversion 05/09/2025
On rate control medication. Rate control strategy seems to be the goal for short-term. On Cardizem. Digoxin introduced.
On anticoagulation-Eliquis
Cardiology following.
# Acute on chronic hypoxic respiratory failure-on 2 L of oxygen at baseline
Chronic hypoxic respiratory failure-patient on home O2 at night and with exertion
Weaned off of BiPAP to nasal cannula oxygen
COVID and influenza negative. Blood cultures negative
Likely secondary to acute COPD exacerbation and heart failure
Continue with Lasix. No active bronchospasm. Continue with prednisone wean.
# COPD exacerbation
Completed Doxy
Taper steroids
On Spiriva as outpatient
# Acute on chronic HFpEF-BNP 2089
On Lasix 20 mg p.o. daily
Continue Farxiga
Continue intake output charting
Echo as above
Cardiology following
# Hyperlipidemia will continue atorvastatin
# Known thoracic aortic aneurysm
# Osteoporosis-on alendronate 70 mg on Mondays
# DVT prophylaxis-Eliquis
# DNR
D/W Daughter at bed side
Discussed with nursing
DC home when okay from cardiology standpoint
Part of this note was created using voice recognition system. Occasional wrong word or��sound alike� substitutions may have inadvertently occurred due to the inherent limitations of voice recognition software. If noted kindly bring it to my
attention for correction.
Anticipated Discharge: Within 24 hours
Subjective/Interval History
-
Date of Service: May 14, 2025
Feeling stronger since admission. Before she is to be tired easily now she does not feel so. Before she is to be easily short of breath but not now.
Denies any chest pain, palpitation. No cough or wheeze. No fever or chills.
No nausea vomiting
Objective Data
-
Labs:
Laboratory Results
05/14/25
04:35
Sodium 138
Potassium 4.7 D
Chloride 97 L
Carbon Dioxide 40 H
BUN 25 H
Creatinine 0.7
Glucose 84
Calcium 10.0
Vital Signs:
Vital Signs
Temp Pulse Resp BP Pulse Ox
98.5 F 72 16 112/58 99
05/14/25 07:39 05/14/25 07:56 05/14/25 07:56 05/14/25 08:08 05/14/25 07:56
I&O
05/13/25 05/14/25 05/15/25
06:59 06:59 06:59
Intake Total 120 / 120 290 / 290
Output Total 450 / 450
Balance 120 / 120 -160 / -160
Physical Exam
-
General: No Apparent Distress
HEENT: Moist Mucous Membranes
Respiratory: Non Labored Respirations; Negative Wheezes, Crackles or Accessory Resp Muscle Use
Cardiac: S1/S2, Irregular Rhythm and Tachycardic
GI: Soft and Nontender
Musculoskeletal: No Edema
Neuro: AO x 3
Psych: Calm
Data Reviewed
-
Labs: Labs Reviewed by me
--- NOTE | 2025-05-14 11:03 | W.PN.CARDCBS ---
Addendum entered and electronically signed by Jesus Mayers DO 05/14/25 14:46:
I saw and examined the patient.
The [employer] Specialist's note was reviewed and I agree with the note.
Comment:
Plan:
Heart rates much improved on Cardizem and digoxin.
Continue prophylaxis with Eliquis
Appears euvolemic on oral Lasix
Continue pulmonary toilet
If continues to improve likely DC a.m. 05/15.
Discussed with daughter and answered all questions.
Will arrange outpatient follow-up.
Original Note:
Today's Communication / Plan
-
follow HRs
continue cardizem, dig, eliquis
continue po lasix
likely for DC in AM
Impression / Plan
-
PCP: Dr. Sweeney
catering and events manager: Dr. Mayers
Impression:
Admitted with acute hypoxic respiratory failure in the setting of AE COPD, PNA and acute HF 05/03/2025
Acute hypoxic respiratory failure, multifactorial
Persistent atrial fibrillation and typical atrial flutter
s/p unsuccessful CV 05/08/2025
new start to Tikosyn therapy 05/08/2025-Tikosyn 250 mcg bid
reattempt at CV 05/13/2025- did not convert
Chronic Eliquis OAC
Acute on chronic HFpEF, proBNP 2089
AE COPD
Concern for infection with Leukocytosis and elevated procalcitonin/ lactic acid
Chronic hypercapnic respiratory failure, chronic nocturnal hypoxemia on home O2 at 2 L NC
Bilateral carotid artery disease
Mild dilatation of aortic root
Echo 05/06/2025: Compared to a prior transthoracic echocardiogram study from June 2024 no significant changes are seen. Mildly dilated aortic root with Sinus of Valsalva measuring 3.8 cm. sinotubular junction mesures 3.7 cm. and ascending aorta
measures 3.8 cm.Normal left ventricular size. Overall, preserved left ventricular systolic function. Mild concentric left ventricular hypertrophy. No regional wall motion abnormalities. Left ventricular ejection fraction is 50-55% by visual
estimate. Mild AR, mild TR, PASP 37 mmHg
Echo Jun 2024: Normal biventricular size and systolic function with EF estimated 60 to 65%. No significant valve disease with mild AI and trace MR/TR. Estimated pulmonary artery pressure 25-30 mmHg. Sinus of Valsalva 3.7 cm, proximal ascending
aorta 4 cm. No pericardial effusion
Plan:
-Patient was admitted with acute hypoxic respiratory failure secondary to pneumonia, COPD, acute heart failure
-Respiratory status improving. Remains on 1 L supplemental oxygen. Does use oxygen at home
-She had unsuccessful cardioversion 05/08/2025. Due to previous amiodarone intolerance, was started on Tikosyn. Dose had to be decreased due to prolonged QTc. She underwent repeat cardioversion 05/13 which was also unsuccessful. Tikosyn was
stopped and she was transitioned to digoxin in addition to outpatient Cardizem with plan for rate control at this time. HRs overall adequate, transiently increases with exertion, improves with rest
-Will evaluate candidacy for outpatient PVI versus ablate and pace strategy. Discussed with patient and daughter in detail 05/14
-Continue Eliquis 5 mg twice daily
-Diuresed 10+ pounds since admission. Continue p.o. Lasix 20 mg daily
-EF preserved at 50 to 55% by echo 05/06/2025
-Patient is not chronically on BB due to COPD and reactive airway disease and not chronically on AMITA/ARB/ARNI/aldosterone antagonist due to hypotension. continue farxiga
-Patient is new to midodrine 2.5 mg TID this admission. can attempt to wean off midodrine as able
-hopeful for DC in AM
-will arrange OP cardiac follow up
-d/w nursing
Progress Note - Acid Plant Helper
Subjective
Date of Service: May 14, 2025
reports feeling well. no CP, SOB
Objective
Labs:
05/12/25 02:24
05/14/25 04:35
Labs
Hgb 15.8 g/dL (12.0-16.0) 05/12/25 02:24
Hct 45.8 % (37.0-47.0) 05/12/25 02:24
Plt Count 222 10^3/uL (130-400) 05/12/25 02:24
PT 22.2 Sec (11.4-14.6) H 05/04/25 04:03
INR 1.93 05/04/25 04:03
APTT 44.7 Sec (23.4-35.0) H 05/04/25 04:03
Sodium 138 mmol/L (135-145) 05/14/25 04:35
Potassium 4.7 mmol/L (3.5-5.1) D 05/14/25 04:35
BUN 25 mg/dl (7-17) H 05/14/25 04:35
Creatinine 0.7 mg/dL (0.6-1.0) 05/14/25 04:35
Glucose 84 mg/dl (70-99) 05/14/25 04:35
Vital Signs and I&O:
Vital Signs
Temp Pulse Resp BP Pulse Ox
98.5 F 105 16 112/58 99
05/14/25 07:39 05/14/25 10:00 05/14/25 07:56 05/14/25 08:08 05/14/25 07:56
Vital Signs
Temp Pulse Resp BP Pulse Ox
98.5 F 105 16 112/58 99
05/14/25 07:39 05/14/25 10:00 05/14/25 07:56 05/14/25 08:08 05/14/25 07:56
Intake & Output
05/12/25 05/13/25 05/14/25 05/15/25
07:59 07:59 07:59 07:59
Intake Total 1200 / 1200 120 / 120 290 / 290
Output Total 600 / 600 450 / 450
Balance 600 / 600 120 / 120 -160 / -160
Physical Exam
Physical Exam
GEN: No distress, awake, alert, oriented x3. sitting in chair. on supp O2
HEENT: supple, anicteric, mmm, eomi
LUNGS: no audible wheezes
CV: Irreg irreg, S1/S2, no murmur
ABD: soft, BS+, NT/ND
EXT: No cyanosis, clubbing, edema
NEURO: Gross non-focal
SKIN: warm, pink, dry. No rash
--- NOTE | 2025-05-14 12:04 | CM ---
Reviewed chart. Met with Mrs. Quiroga and her daughter to review discharge plans. Prior to admission she resides with her daughter and son-in-law in a two story home with three steps to enter. The steps have railings. Prior to admission she has a
first floor set-up. Her bedroom and full bathroom are on the first floor. Prior to admission she ambulates in the home without any device, if she is feeling tired she does use the walker. She uses a walker in the community. She states she has
home 02 at 2 liters. [employer] services her home 02. She states she has a concentrator and portable. She also has a nebulizer, walker and single point cane at home. She has a prescription plan. We reviewed [facility] Services and she is agreeable to
[facility]. Referral was already sent. [facility]. [facility] states they have the referral. Medical work-up in progress. The discharge plan is to return home with her
daughter and son-in-law with [facility] when medically stable. .
[2025-05-14] MEDS: LANOXIN 125 MCG PO (12:13)
--- NOTE | 2025-05-14 17:32 | PTCARENOTE ---
Assumed care of patient at 0700, AAOx3, Afib on telemetry. Patient OOB to chair for majority of day. Patient weaned off of O2 and she is now on room air, saturation at 92%. She will put back on as needed and for HS.
[2025-05-14] MEDS: FARXIGA 10 MG PO (17:54)
--- NOTE | 2025-05-14 21:36 | PTCARENOTE ---
Received pt @ change of shift. AAOx3, VSS-- Afib on monitor. Pt tucked in bed, reading. Discussed 2L NC @ HS. Plan of care on going. Call mao within reach.
[2025-05-15 02:41] VITALS: BP 100/63
[2025-05-15 06:00] VITALS: BMI 28.8
[2025-05-15] MEDS: SPIRIVA RESPIMAT 2.5 MCG 2 PUFF INH (07:28)
[2025-05-15 08:31] VITALS: BP 109/60
[2025-05-15] MEDS: VITAMIN B-12 1000 MCG PO (09:05)
[2025-05-15] MEDS: PEPCID 20 MG PO (09:05)
[2025-05-15] MEDS: DELTASONE 10 MG PO (09:05)
[2025-05-15] MEDS: VITAMIN D3 (cholecalciferol) 50 MCG PO (09:06)
[2025-05-15] MEDS: LASIX 20 MG PO (09:06)
[2025-05-15] MEDS: CARDIZEM CD 240 MG PO (09:06)
[2025-05-15] MEDS: THERAGRAN 1 TABLET PO (09:06)
[2025-05-15] MEDS: LIPITOR 10 MG PO (09:06)
[2025-05-15] MEDS: ELIQUIS 5 MG PO (09:07)
--- NOTE | 2025-05-15 10:50 | W.DCSUMMARY ---
Discharge Summary
Discharge Data
Date of Admission: 05/03/25
Date of Discharge: 05/15/25
-
Pending Results: No
Hospital Course
Primary diagnosis:
Persistent atrial fibrillation
Acute hypoxic respiratory failure suspected secondary to acute diastolic CHF and exacerbation of COPD
Secondary diagnosis:
Chronic hypoxic respiratory failure on home O2
Hyperlipidemia
Chronic obstructive pulmonary disease
Chronic heart failure with preserved EF
Hospital course:
Patient presented with increasing shortness of breath and lower extremity edema. She was hypoxic at 88% on 3 to 4 L at her PCPs office so was sent into the hospital. She is not to have chronic hypoxic respiratory failure needing 2 L of oxygen at
night and as well as with exertion.
She was found to be in acute hypoxic respiratory failure requiring oxygen even at rest. It was felt it was combination of heart failure and COPD flare. She was seen by cardiology and pulmonary was initiated on steroids with a taper. She was also
put on Lasix and transition into p.o. Lasix 20 mg daily which is her home dose. Her weight improved from 164 pounds to 155 pounds at the time of discharge. Her echocardiogram here showed EF of 50 to 55%. Mild AR and pulmonary arterial pressures
of 37 mmHg. Mildly dilated aortic root at 3.8 at the sinus of Valsalva noted. She was continued on Farxiga.
Pulmonary advised to minimize the albuterol nebs at home-advised to use only as needed. She was continued on Spiriva. She finished the steroid taper here.
Her oxygenation improved. This morning she was on room air. Home O2 eval was pending at the time of this dictation.
She had issues with the persistently elevated heart rates from her A-fib. She had initial attempt for cardioversion which was unsuccessful. She was put on Tikosyn and had another attempted cardioversion which was unsuccessful. Cardiology
increased the Cardizem dose and added digoxin which helped to improve the heart rates. He was continued on chronic anticoagulation with Eliquis.
Today patient feels improved. Off of oxygen at rest. Denies any chest pain or palpitations. Afebrile. Pulse was 94. Blood pressure 109/60.
Chest was clear without any wheeze or crackles. Abdomen was benign.
She was alert and oriented. No confusion evident.
PT anibalal noted who recommended home health.
Discussed with cardiology today and was stable for discharge from their standpoint.
Medically stable as well for discharge home.
Consultants on board:
Cardiology cardiology-Ema Hartley
Pulmonary-Noe Rodriguez
Discharge Plan
-
Patient Disposition: Home with Home Care
Diet: 2 Gram Sodium
Activity: As tolerated
Driving Restrictions: Not until seen by your Dr
Bathing Restrictions: None
Blood Work: BMP/digoxin level in 1 week
Other Services: VN
Specialty Instructions: Weigh Daily- Call MD for wt gain/loss 3 lbs overnight/5 lbs in 1 week
Instructions: *[facility] Heart Failure Instructions
Referrals:
[facility] [Outside]
Lacie Marie PA-C [Specified Professional Personl, Cardiology] - 05/29/25 2:40 pm
Referral Note: You have a cardiology follow-up appointment at the [place] office with Dr. Mayers's physician front desk assistant, aLcie. Please call with questions.
Noe Selby MD [Active, Pulmonary Medicine] - in one to two weeks
Referral Note: PFT on day of office visit
Chiquis Sweeney MD [Family Provider, Family Practice] - in less than 1 week
Prescriptions:
New
diltiazem HCl 240 mg Capsule,Extended Release 24hr
240 mg PO BID Qty: 60 0RF
digoxin 125 mcg (0.125 mg) Tablet
125 mcg PO NOON Qty: 30 0RF
midodrine 2.5 mg Tablet
2.5 mg PO TID@0800,1300,1800 Qty: 90 0RF
Continued
atorvastatin 10 mg Tablet
10 mg PO DAILY
alendronate 70 mg Tablet
70 mg PO MO@0800
cyanocobalamin (vitamin B-12) 1,000 mcg Tablet
1,000 mcg PO DAILY
therapeutic multivitamin Tablet
1 tab PO DAILY
tiotropium bromide [Spiriva with HandiHaler] 18 mcg Capsule, W/Inhalation Device
1 cap INHALATION R DAILY
cholecalciferol (vitamin D3) 50 mcg (2,000 unit) Tablet
50 mcg PO DAILY
furosemide [Lasix] 20 mg Tablet
20 mg PO DAILY
dapagliflozin propanediol [Farxiga] 10 mg Tablet
10 mg PO QPM
Eliquis 5 mg tablet
5 mg PO BID
Changed
ipratropium-albuterol 0.5 mg-3 mg(2.5 mg base)/3 mL solution for nebulization
3 ml inhalation R BID PRN (Reason: shortness of breath/wheeze) Qty: 0 0RF
Discontinued
diltiazem HCl 360 mg Capsule,Extended Release 24 Hr
360 mg PO DAILY
metoprolol succinate 25 mg tablet extended release 24 hr
25 mg PO DAILY
Discharge Orders:
Discharge Patient (As Directed); Ordered 05/15/25
Ordered By: Marco Jama
Care Plan Goals
Care Plan Goals:
Problem: Readiness for enhanced knowledge related to diagnosis and treatment plan
Goal: Understand your diagnosis and treatment plan needs, including medications if applicable.
Instructions: Know your diagnosis, underlying causes and treatment plan options, including medications if applicable. Consult with your health care team to learn about your diagnosis and treatment plan, including medications if applicable.
Discharge Date and Time
Print Language: ARMENIAN
--- NOTE | 2025-05-15 11:06 | W.PN.CARDCBS ---
Addendum entered and electronically signed by Jesus Mayers DO 05/15/25 11:30:
I saw and examined the patient.
The Freight Rate Specialist's note was reviewed and I agree with the note.
Comment:
Plan:
Stable for d/c
Outpt follow up EP arranged
Cont Cardizem, Digoxin, Eliquis and lasix.
Discussed with daughter and primary service.
Original Note:
Today's Communication / Plan
-
cardizem cd 240mg BID
digoxin 0.125mg daily
eliquis 5mg BID
lasix 20mg daily
farxiga 10mg daily
midodrine 2.5mg TID
BMP/dig level in 1 week
OP follow up with EP arranged
Impression / Plan
-
PCP: Dr. Sweeney
automatic spooler operator: Dr. Mayers
Impression:
Admitted with acute hypoxic respiratory failure in the setting of AE COPD, PNA and acute HF 05/03/2025
Acute hypoxic respiratory failure, multifactorial
Persistent atrial fibrillation and typical atrial flutter
s/p unsuccessful CV 05/08/2025
new start to Tikosyn therapy 05/08/2025-Tikosyn 250 mcg bid
reattempt at CV 05/13/2025- did not convert
Chronic Eliquis OAC
Acute on chronic HFpEF, proBNP 2089
AE COPD
Concern for infection with Leukocytosis and elevated procalcitonin/ lactic acid
Chronic hypercapnic respiratory failure, chronic nocturnal hypoxemia on home O2 at 2 L NC
Bilateral carotid artery disease
Mild dilatation of aortic root
Echo 05/06/2025: Compared to a prior transthoracic echocardiogram study from June 2024 no significant changes are seen. Mildly dilated aortic root with Sinus of Valsalva measuring 3.8 cm. sinotubular junction mesures 3.7 cm. and ascending aorta
measures 3.8 cm.Normal left ventricular size. Overall, preserved left ventricular systolic function. Mild concentric left ventricular hypertrophy. No regional wall motion abnormalities. Left ventricular ejection fraction is 50-55% by visual
estimate. Mild AR, mild TR, PASP 37 mmHg
Echo Jun 2024: Normal biventricular size and systolic function with EF estimated 60 to 65%. No significant valve disease with mild AI and trace MR/TR. Estimated pulmonary artery pressure 25-30 mmHg. Sinus of Valsalva 3.7 cm, proximal ascending
aorta 4 cm. No pericardial effusion
Plan:
-She had unsuccessful cardioversion 05/08/2025. Due to previous amiodarone intolerance, was started on Tikosyn. Dose had to be decreased due to prolonged QTc. She underwent repeat cardioversion 05/13 which was also unsuccessful. Tikosyn was
stopped and she was transitioned to digoxin in addition to outpatient Cardizem with plan for rate control at this time.
-Heart rate trends overall appear to be improving on review of telemetry overnight. Continue Cardizem CD 240 mg daily and digoxin 0.125mg daily
-Will evaluate candidacy for outpatient PVI versus ablate and pace strategy as OP. EP follow up arranged
-Continue Eliquis 5 mg twice daily
-continue po lasix 20mg daily. successful diuresis this admission
-continue supp O2 as needed in OP setting
-EF preserved at 50 to 55% by echo 05/06/2025
-Patient is not chronically on BB due to COPD and reactive airway disease and not chronically on AMITA/ARB/ARNI/aldosterone antagonist due to hypotension. continue farxiga
-Patient is new to midodrine 2.5 mg TID this admission. can attempt to wean off midodrine as able
-ok for DC to home today
-d/w hospitalist via TT. d/w daughter at bedside
Progress Note - Child And Adolescent Psychologist
Subjective
Date of Service: May 15, 2025
Feeling well. Eager for discharge
Objective
Labs:
05/12/25 02:24
05/14/25 04:35
Labs
Hgb 15.8 g/dL (12.0-16.0) 05/12/25 02:24
Hct 45.8 % (37.0-47.0) 05/12/25 02:24
Plt Count 222 10^3/uL (130-400) 05/12/25 02:24
PT 22.2 Sec (11.4-14.6) H 05/04/25 04:03
INR 1.93 05/04/25 04:03
APTT 44.7 Sec (23.4-35.0) H 05/04/25 04:03
Sodium 138 mmol/L (135-145) 05/14/25 04:35
Potassium 4.7 mmol/L (3.5-5.1) D 05/14/25 04:35
BUN 25 mg/dl (7-17) H 05/14/25 04:35
Creatinine 0.7 mg/dL (0.6-1.0) 05/14/25 04:35
Glucose 84 mg/dl (70-99) 05/14/25 04:35
Vital Signs and I&O:
Vital Signs
Temp Pulse Resp BP Pulse Ox
97.5 F 94 16 109/60 96
05/15/25 08:00 05/15/25 08:31 05/15/25 08:31 05/15/25 08:31 05/15/25 10:11
Vital Signs
Temp Pulse Resp BP Pulse Ox
97.5 F 94 16 109/60 96
05/15/25 08:00 05/15/25 08:31 05/15/25 08:31 05/15/25 08:31 05/15/25 10:11
Intake & Output
05/13/25 05/14/25 05/15/25 05/16/25
07:59 07:59 07:59 07:59
Intake Total 120 / 120 290 / 290
Output Total 450 / 450 300 / 300 400 / 400
Balance 120 / 120 -160 / -160 -300 / -300 -400 / -400
Physical Exam
Physical Exam
GEN: No distress, awake, alert, oriented x3. on supp O2
HEENT: supple, anicteric, mmm, eomi
LUNGS: no audible wheezes
CV: Irreg, S1/S2, no murmur
ABD: soft, BS+, NT/ND
EXT: No cyanosis, clubbing, edema
NEURO: Gross non-focal
SKIN: warm, pink, dry. No rash
--- NOTE | 2025-05-15 11:17 | CM ---
Reviewed chart. Met with Mrs. Quiroga and her daughter to review discharge plans. She states she is feeling tired today but id hoping to go home soon. We reviewed [facility] and they are agreeable to [facility]. Prior to
admission she resides with her daughter and son-in-law in a two story home with three steps to enter. The steps have railings. Prior to admission she has a first floor set-up. Her bedroom and full bathroom are on the first floor. Prior to
admission she ambulates in the home without any device, if she is feeling tired she does use the walker. She uses a walker in the community. She states she has home 02 at 2 liters. [employer] services her home 02. She states she has a concentrator
and portable. She also has a nebulizer, walker and single point cane at home. She has a prescription plan. We reviewed [facility] Services and she is agreeable to [facility]. Referral was already sent Medical work-up in progress. The
discharge plan is to return home with her daughter and son-in-law with [facility] when medically stable. .
[2025-05-15] MEDS: LANOXIN 125 MCG PO (11:52)
[2025-05-15 11:53] VITALS: BP 111/74
[2025-05-15 12:17] VITALS: BP 111/74
--- NOTE | 2025-05-15 14:27 | PTCARENOTE ---
Pt was discharged to home with family. Discharge instructions were reviewed with pt and daughter verbalized understanding. VN to see pt tomorrow. Piv and case monitor removed prior to leaving. Pt was wheelchair to lobby by PCT.
== END 2025-05-15 15:38 | disposition home health service (06) | DRG 291 ==
LOC: IVU 20:07
PROVIDERS: Clinical Nurse Specialist Family Health; Emergency Medicine; Hospitalist; Internal Medicine; Nuclear Medicine Nuclear Cardiology; Physician Assistant Medical; Student in an Organized Health Care Education/Training Program; ADMITTING PHYSICIAN Hospitalist; ATTENDING PHYSICIAN Internal Medicine; CONSULT PHYSICIAN Internal Medicine Cardiovascular Disease; CONSULT PHYSICIAN Internal Medicine Critical Care Medicine; EMERGENCY PHYSICIAN Student in an Organized Health Care Education/Training Program; FAMILY PHYSICIAN Family Medicine
PROC: 5A09357 Assistance with Respiratory Ventilation, Less than 24 Consecutive Hours, Continuous Positive Airway Pressure (ICD-10-PCS; 2025-05-03)
PROC: 5A2204Z Restoration of Cardiac Rhythm, Single (ICD-10-PCS; 2025-05-08)
DX: I11.0 Hypertensive heart disease with heart failure (principal); I50.33 Acute on chronic diastolic (congestive) heart failure; J96.21 Acute and chronic respiratory failure with hypoxia; J96.22 Acute and chronic respiratory failure with hypercapnia; I48.11 Longstanding persistent atrial fibrillation; J44.1 Chronic obstructive pulmonary disease with (acute) exacerbation; E87.20 Acidosis, unspecified; R17 Unspecified jaundice; Z99.81 Dependence on supplemental oxygen; E78.00 Pure hypercholesterolemia, unspecified; I71.20 Thoracic aortic aneurysm, without rupture, unspecified; M81.0 Age-related osteoporosis without current pathological fracture; Z87.891 Personal history of nicotine dependence; Z91.148 Patient's other noncompliance with medication regimen for other reason; J43.2 Centrilobular emphysema; Z87.442 Personal history of urinary calculi; Z66 Do not resuscitate; I25.10 Atherosclerotic heart disease of native coronary artery without angina pectoris; Z79.899 Other long term (current) drug therapy; Z79.01 Long term (current) use of anticoagulants; Z79.83 Long term (current) use of bisphosphonates; Z79.84 Long term (current) use of oral hypoglycemic drugs; Z11.52 Encounter for screening for COVID-19
CPT/HCPCS: 36600; 71045; 71250; 74176; 80048; 80053; 81003; 81015; 82607; 82746; 82805; 82962; 83036; 83605; 83735; 83880; 84100; 84145; 85025; 85027; 85610; 85730; 87040; 87086; 87502; 87811; 92610; 92960; 93005; 93306; 94640; 94660; 96361; 96365; 96367; 97116; 97163; 97167; 97530; 97535; 99291; J1160